=== PATIENT | male | born 1950 | race American Indian/Alaskan Native ===

== ENCOUNTER 2017-12-15 17:17 | Inpatient (IN) | payer MEDICARE ==
[2017-12-15 17:52] LABS: Calcium 9.9 mg/dL (8.4-10.2); Hematocrit 50.3 % (35.5-45.6); Mean Corpuscular HGB Conc 32 % (32-34); Mean Corpuscular Hemoglobin 29 pg (28-32); Mean Corpuscular Volume 91 fl (84-94); Platelet Count 220 K/mm3 (140-440); Red Blood Count 5.51 M/mm3 (3.65-5.03); Red Cell Distribution Width 13.9 % (13.2-15.2)
[2017-12-15] MEDS ORDERED: HumuLIN R IV ONE (18:10)
[2017-12-15] MEDS ORDERED: NACL 0.9% 1000 ML 1,000 ML IV ONE (18:11)
--- NOTE | 2017-12-15 18:15 | Emergency Department Report ---
HPI - General Chief Complaint: Hyperglycemia Time Seen by Provider: 12/15/17 18:03 - HPI HPI: 67-year-old -[place] male, presents to ED with generalized weakness, high blood glucose, history of diabetes and has been without his insulin for the last month due to being unable to fill his prescriptions. He denies any chest pain, feels mild shortness of breath, no fever, no chills, complains of increase in thirst, and polyurea. ED Past Medical Hx - Past Medical History Hx Hypertension: Yes (PCP IS DR EMIL NAIK) Hx Diabetes: Yes (IDDM 2011) Hx GERD: Yes Hx Renal Disease: Yes (nephrolithiasis) Hx Sickle Cell Disease: No (SICKLE TRAIT) Hx Arthritis: Yes (KNEES AND FINGERS) Hx Kidney Stones: Yes Additional medical history: ulcerative colitis, - Surgical History Hx Cholecystectomy: Yes - Social History Smoking Status: Never Smoker Substance Use Type: None - Medications Home Medications: Home Medications Medication Instructions Recorded Confirmed Last Taken Type Fenofibrate [Lofibra] 160 mg PO QDAY 01/13/14 10/16/14 10/16/14 07:00 History Ferrous Sulfate [Feosol 325 MG tab] 325 mg PO BID 01/13/14 10/16/14 10/16/14 History 0700 Mesalamine [Asacol Hd] 800 mg PO BID 01/13/14 10/16/14 10/16/14 07:00 History Multivitamin [Multi Vitamin Daily] 1 each PO DAILY 07/01/14 10/16/14 07/02/14 13 :00 History Sulfamethoxazole/Trimethoprim 1 each PO BID #14 tablet 07/15/14 10/16/14 Rx [Bactrim Ds] Tamsulosin [Flomax] 0.4 mg PO QHS #90 cap 07/15/14 10/16/14 10/14/14 Rx Fish Oil/Borage/Flax/Om3,6,9 1 1 gm PO QID 10/16/14 10/16/14 10/14/14 History [[place] 3-6-9 1,200 mg Softgel] Insulin Lispro [HumaLOG] 20 unit SQ QHS 10/16/14 10/16/14 10/15/14 History Insulin Lispro [HumaLOG] 40 units SUB-Q QAM 10/16/14 10/16/1415 07:00 History ED Review of Systems ROS: Stated complaint: HIGH BLOOD SUGAR Other details as noted in HPI Comment: All other systems reviewed and negative Endocrine: excessive sweating, increased thirst Gastrointestinal: nausea Physical Exam - Physical Exam Vital Signs: Vital Signs 12/15/17 17:30 Temperature 97.8 F Pulse Rate 131 H Respiratory 16 Rate Blood Pressure 133/88 [Right] O2 Sat by Pulse 94 Oximetry Physical Exam: Gen. alert and oriented 3 in no distress Head atraumatic normocephalic Eyes PERR LA EOMI Chest regular rate and rhythm normal S1-S2 lungs clear bilaterally Abdomen soft nondistended Back no point tenderness paravertebral tenderness Neuro no focal deficit. Psych normal mood. ED Course Vital Signs 12/15/17 17:30 Temperature 97.8 F Pulse Rate 131 H Respiratory 16 Rate Blood Pressure 133/88 [Right] O2 Sat by Pulse 94 Oximetry ED Medical Decision Making - Lab Data Result diagrams: 12/15/17 17:27 12/15/17 17:27 Critical care attestation.: If time is entered above; I have spent that time in minutes in the direct care of this critically ill patient, excluding procedure time. ED Disposition Clinical Impression: DKA (diabetic ketoacidoses) Qualifiers: Diabetes mellitus type: type 2 Diabetes mellitus complication detail: without coma Qualified Code(s): E11.10 - Type 2 diabetes mellitus with ketoacidosis without coma Disposition: 09 OP ADMIT IP TO THIS HOSP Is pt being admited?: Yes Does the pt Need Aspirin: No Condition: Stable Instructions: Diabetic Ketoacidosis (ED)
[2017-12-15 19:14] LABS: Basophils % (Manual) 0 % (0.0-1.8); Eosinophils % (Manual) 0 % (0.0-4.3); Total Cells Counted 100
[2017-12-15 19:15] LABS: Large Platelets 1+; Platelet Estimate Consistent w Auto; RBC Morphology Normal
[2017-12-15 19:24] LABS: Bilirubin,Urine NEG (Negative); Blood,Urine SM (Negative); Color,Urine Straw (Yellow); Mucus,Urine FEW /HPF; Protein,Urine <15 mg/dL mg/dL (Negative); Urobilinogen,Urine < 2.0 mg/dL (<2.0)
--- NOTE | 2017-12-15 19:36 | History and Physical Report ---
History of Present Illness Date of examination: 12/15/17 Date of admission: 12/15/17 Chief complaint: CC :Feeling weak and tired 3 days History of present illness: HPI 67-year-old -[place] male with history of IDDM on Novolog mix pens BID changed his insurance one month ago.In the ensuing change his Novalog mix pens were not authorised and only Humalog [id number] were authorised. Because of confusion and non availability of insulin stopped taking his insulin for about 3 weeks --- presents to ED with generalized weakness and high blood glucose. He denies any chest pain, feels mild shortness of breath, no fever, no chills, complains of increase in thirst, and polyuria.Feels very weak and tired.Also severe dry tongue. Past Medical History Hypertension Diabetes GERD Renal Diseas Arthritis Kidney Stones Additional medical history: ulcerative colitis, Surgical History Hx Cholecystectomy: Yes Hemorrhoidectomy - Social History Smoking Status: Smoked 30 years ago Substance Use Type: None Family Hx Htn DM -Medications Home Medications: Home Medications Medication Instructions Recorded Confirmed Last Taken Type Fenofibrate [Lofibra] 160 mg PO QDAY 01/13/14 10/16/14 10/16/14 07:00 History Ferrous Sulfate [Feosol 325 MG tab] 325 mg PO BID 01/13/14 10/16/14 10/16/14 History 0700 Mesalamine [Asacol Hd] 800 mg PO BID 01/13/14 10/16/14 10/16/14 07:00 History Multivitamin [Multi Vitamin Daily] 1 each PO DAILY 07/01/14 10/16/14 07/02/14 13 :00 History Sulfamethoxazole/Trimethoprim 1 each PO BID #14 tablet 07/15/14 10/16/14 Rx [Bactrim Ds] Tamsulosin [Flomax] 0.4 mg PO QHS #90 cap 07/15/14 10/16/14 10/14/14 Rx Fish Oil/Borage/Flax/Om3,6,9 1 1 gm PO QID 10/16/14 10/16/14 10/14/14 History [[place] 3-6-9 1,200 mg Softgel] Insulin Lispro [HumaLOG] 20 unit SQ QHS 10/16/14 10/16/14 10/15/14 History Insulin Lispro [HumaLOG] 40 units SUB-Q QAM 10/16/14 10/16/14 10/16/14 07:00 History Medications and Allergies Allergies Allergy/AdvReac Type Severity Reaction Status Date / Time No Known Allergies Allergy Verified 10/16/14 12:48 Home Medications Medication Instructions Recorded Confirmed Last Taken Type Fenofibrate [Lofibra] 160 mg PO QDAY 01/13/14 12/15/17 10/16/14 07:00 History Chromium Picolinate 400 mcg PO BID 12/15/17 12/15/17 Unknown History Insulin Lispro Prot/Lispro 25 unit SQ QPM 12/15/17 12/15/17 Unknown History [HumaLOG MIX 75/25] Insulin Lispro Prot/Lispro 55 unit SQ QAM 12/15/17 12/15/17 Unknown History [HumaLOG MIX 75/25] Omeprazole 20 mg PO DAILY 12/15/17 12/15/17 Unknown History Review of Systems All systems: negative Constitutional: no weight loss, no weight gain, no fever, no chills, no sweats, no night sweats Ears, nose, mouth and throat: no sore throat, no swelling in mouth, no swelling in throat, no odynophagia Cardiovascular: no chest pain, no orthopnea, no palpitations, no rapid/ irregular heart beat, no edema Respiratory: shortness of breath, no cough, no cough with sputum, no excessive sputum, no hemoptysis, no dyspnea on exertion Gastrointestinal: nausea, no vomiting, no diarrhea, no constipation, no change in bowel habits, no hematemesis, no coffee ground emesis Genitourinary Male: no dysuria, no hematuria, no flank pain, no discharge, no urinary frequency, no urinary hesitancy Rectal: no pain Musculoskeletal: no neck stiffness, no neck pain, no shooting arm pain, no arm numbness/tingling, no low back pain, no shooting leg pain Integumentary: no rash, no pruritis, no redness, no sores Neurological: no seizures, no syncope Psychiatric: no anxiety, no memory loss, no change in sleep habits, no sleep disturbances, no insomnia Endocrine: polyphagia, excessive thirst, polydipsia, polyuria, no cold intolerance, no heat intolerance Hematologic/Lymphatic: no easy bruising, no easy bleeding Allergic/Immunologic: no urticaria, no allergic rhinitis, no wheezing Exam - Constitutional Vitals: Temp Pulse Resp BP Pulse Ox 97.8 F 118 H 29 H 161/104 98 12/15/17 17:30 12/15/17 19:00 12/15/17 19:00 12/15/17 19:00 12/15/17 19:00 General appearance: Present: no acute distress, well-nourished - EENT Eyes: Present: PERRL ENT: hearing intact, other (Dry Tongue) - Neck Neck: Present: supple, normal ROM - Respiratory Respiratory effort: normal Respiratory: bilateral: CTA - Cardiovascular Heart rate: 76 Rhythm: regular Heart Sounds: Present: S1 & S2. Absent: rub, click - Extremities Extremities: no ischemia, pulses intact, pulses symmetrical, No edema Peripheral Pulses: within normal limits - Abdominal General gastrointestinal: Present: soft, non-tender, non-distended, normal bowel sounds Male genitourinary: Present: normal - Rectal Rectal Exam: deferred - Integumentary Integumentary: Present: clear, warm, dry - Musculoskeletal Musculoskeletal: gait normal, strength equal bilaterally - Psychiatric Psychiatric: appropriate mood/affect, intact judgment & insight - Neurologic Neurologic: CNII-XII intact, moves all extremities - Allied Health Allied health notes reviewed: nursing, case management Results - Labs CBC & Chem 7: 12/16/17 04:29 12/16/17 04:29 Labs: Laboratory Last Values WBC 24.9 K/mm3 (4.5-11.0) H 12/15/17 17:27 RBC 5.51 M/mm3 (3.65-5.03) H 12/15/17 17:27 Hgb 16.0 gm/dl (11.8-15.2) H 12/15/17 17:27 Hct 50.3 % (35.5-45.6) H 12/15/17 17:27 MCV 91 fl (84-94) 12/15/17 17:27 MCH 29 pg (28-32) 12/15/17 17:27 MCHC 32 % (32-34) 12/15/17 17:27 RDW 13.9 % (13.2-15.2) 12/15/17 17:27 Plt Count 220 K/mm3 (140-440) 12/15/17 17:27 Add Manual Diff Complete 12/15/17 17: Total Counted 100 12/15/17 17:27 Seg Neuts % (Manual) 85.0 % (40.0-70.0) H 12/15/17 17:27 Band Neutrophils % 4.0 % 12/15/17 17:27 Lymphocytes % (Manual) 5.0 % (13.4-35.0) L 12/15/17 17:27 Reactive Lymphs % (Man) 0 % 12/15/17 17:27 Monocytes % (Manual) 6.0 % (0.0-7.3) 12/15/17 17:27 Eosinophils % (Manual) 0 % (0.0-4.3) 12/15/17 17:27 Basophils % (Manual) 0 % (0.0-1.8) 12/15/17 17:27 Metamyelocytes % 0 % 12/15/17 17:27 Myelocytes % 0 % 12/15/17 17:27 Promyelocytes % 0 % 12/15/17 17:27 Blast Cells % 0 % 12/15/17 17:27 Nucleated RBC % Not Reportable 12/15/17 17:27 Seg Neutrophils # Man 21.2 K/mm3 (1.8-7.7) H 12/15/17 17:27 Band Neutrophils # 1.0 K/mm3 12/15/17 17:27 Lymphocytes # (Manual) 1.2 K/mm3 (1.2-5.4) 12/15/17 17:27 Abs React Lymphs (Man) 0.0 K/mm3 12/15/17 17:27 Monocytes # (Manual) 1.5 K/mm3 (0.0-0.8) H 12/15/17 17:27 Eosinophils # (Manual) 0.0 K/mm3 (0.0-0.4) 12/15/17 17:27 Basophils # (Manual) 0.0 K/mm3 (0.0-0.1) 12/15/17 17:27 Metamyelocytes # 0.0 K/mm3 12/15/17 17:27 Myelocytes # 0.0 K/mm3 12/15/17 17:27 Promyelocytes # 0.0 K/mm3 12/15/17 17:27 Blast Cells # 0.0 K/mm3 12/15/17 17:27 WBC Morphology Not Reportable 12/15/17 17:27 Hypersegmented Neuts Not Reportable 12/15/17 17:27 Hyposegmented Neuts Not Reportable 12/15/17 17:27 Hypogranular Neuts Not Reportable 12/15/17 17:27 Smudge Cells Not Reportable 12/15/17 17:27 Toxic Granulation Not Reportable 12/15/17 17:27 Toxic Vacuolation Not Reportable 12/15/17 17:27 Dohle Bodies Not Reportable 12/15/17 17:27 Pelger-Huet Anomaly Not Reportable 12/15/17 17:27 Eliezer Rods Not Reportable 12/15/17 17:27 Platelet Estimate Consistent w auto 12/15/17 17:27 Clumped Platelets Not Reportable 12/15/17 17:27 Plt Clumps, EDTA Not Reportable 12/15/17 17:27 Large Platelets 1+ 12/15/17 17:27 Giant Platelets Not Reportable 12/15/17 17:27 Platelet Satelliting Not Reportable 12/15/17 17:27 Plt Morphology Comment Not Reportable 12/15/17 17:27 RBC Morphology Normal 12/15/17 17:27 Dimorphic RBCs Not Reportable 12/15/17 17:27 Polychromasia Not Reportable 12/15/17 17:27 Hypochromasia Not Reportable 12/15/17 17:27 Poikilocytosis Not Reportable 12/15/17 17:27 Anisocytosis Not Reportable 12/15/17 17:27 Microcytosis Not Reportable 12/15/17 17:27 Macrocytosis Not Reportable 12/15/17 17:27 Spherocytes Not Reportable 12/15/17 17:27 Pappenheimer Bodies Not Reportable 12/15/17 17:27 Sickle Cells Not Reportable 12/15/17 17:27 Target Cells Not Reportable 12/15/17 17:27 Tear Drop Cells Not Reportable 12/15/17 17:27 Ovalocytes Not Reportable 12/15/17 17:27 Helmet Cells Not Reportable 12/15/17 17:27 [place] Bodies Not Reportable 12/15/17 17:27 [place] Rings Not Reportable 12/15/17 17:27 [place] Cells Not Reportable 12/15/17 17:27 Bite Cells Not Reportable 12/15/17 17:27 Crenated Cell Not Reportable 12/15/17 17:27 Elliptocytes Not Reportable 12/15/17 17:27 Acanthocytes (Spur) Not Reportable 12/15/17 17:27 Rouleaux Not Reportable 12/15/17 17:27 Hemoglobin C Crystals Not Reportable 12/15/17 17:27 Schistocytes Not Reportable 12/15/17 17:27 Malaria parasites Not Reportable 12/15/17 17:27 Josias Bodies Not Reportable 12/15/17 17:27 Hem Pathologist Commnt No 12/15/17 17:27 VBG pH 7.206 (7.320-7.420) L 12/15/17 17:27 Sodium 126 mmol/L (137-145) L 12/15/17 17:27 Potassium 5.5 mmol/L (3.6-5.0) H 12/15/17 17:27 Chloride 78.2 mmol/L (98-107) L 12/15/17 17:27 Carbon Dioxide 10 mmol/L (22-30) L 12/15/17 17:27 Anion Gap 43 mmol/L 12/15/17 17:27 BUN 39 mg/dL (9-20) H 12/15/17 17:27 Creatinine 2.2 mg/dL (0.8-1.5) H 12/15/17 17:27 Estimated GFR 37 ml/min 12/15/17 17:27 BUN/Creatinine Ratio 18 % 12/15/17 17:27 Glucose 840 mg/dL (75-100) H* 12/15/17 17:27 POC Glucose > 500 (70-105) H 12/15/17 18:16 Calcium 9.9 mg/dL (8.4-10.2) 12/15/17 17:27 Urine Color Straw (Yellow) 12/15/17 18:57 Urine Turbidity Clear (Clear) 12/15/17 18:57 Urine pH 5.0 (5.0-7.0) 12/15/17 18:57 Ur Specific [place] 1.018 (1.003-1.030) 12/15/17 18:57 Urine Protein <15 mg/dl mg/dL (Negative) 12/15/17 18:57 Urine Glucose (UA) >=500 mg/dL (Negative) 12/15/17 18:57 Urine Ketones 20 mg/dL (Negative) 12/15/17 18:57 Urine Blood Sm (Negative) 12/15/17 18:57 Urine Nitrite Neg (Negative) 12/15/17 18:57 Urine Bilirubin Neg (Negative) 12/15/17 18:57 Urine Urobilinogen < 2.0 mg/dL (<2.0) 12/15/17 18:57 Ur Leukocyte Esterase Neg (Negative) 12/15/17 18:57 Urine WBC (Auto) 2.0 /HPF (0.0-6.0) 12/15/17 18:57 Urine RBC (Auto) 1.0 /HPF (0.0-6.0) 12/15/17 18:57 Urine Mucus Few /HPF 12/15/17 18:57 Short CBC 12/15/17 12/16/17 Range/Units 17:27 04:29 WBC 24.9 H 25.5 H (4.5-11.0) K/mm3 Hgb 16.0 H 15.1 (11.8-15.2) gm/dl Hct 50.3 H 45.7 H (35.5-45.6) % Plt Count 220 201 (140-440) K/mm3 BMP 12/15/17 12/15/17 12/15/17 17:27 19:22 20:11 Sodium 126 L 134 L D Potassium 5.5 H 4.8 Chloride 78.2 L 88.4 L Carbon Dioxide 10 L 11 L BUN 39 H 36 H Creatinine 2.2 H 2.1 H Glucose 840 H* 818 H* 578 H* Calcium 9.9 9.5 12/16/17 12/16/17 12/16/17 00:16 01:46 04:29 Sodium 135 L 139 145 Potassium 6.4 H* D 5.0 D 4.4 Chloride 90.8 L 98.1 103.7 Carbon Dioxide 8 L* 12 L 17 L BUN 34 H 32 H 29 H Creatinine 1.8 H 1.6 H 1.6 H Glucose 499 H 355 H 219 H Calcium 9.2 9.4 9.3 Liver Function 12/16/17 Range/Units 04:29 Total Bilirubin 0.70 (0.1-1.2) mg/dL AST 14 (5-40) units/L ALT 17 (7-56) units/L Alkaline Phosphatase 110 (35-129) units/L Albumin 4.0 (3.9-5) g/dL Urine 12/15/17 Range/Units 18:57 Urine Color Straw (Yellow) Urine pH 5.0 (5.0-7.0) Ur Specific [place] 1.018 (1.003-1.030) Urine Protein <15 mg/dl (Negative) mg/dL Urine Glucose (UA) >=500 (Negative) mg/dL - Imaging and Cardiology EKG: report reviewed (NSR ) Assessment and Plan Assessment and plan: The high probability of a clinically significant, sudden or life threatening deterioration of the [Pulmonary, cadiac, renal] system(s) required my full and direct attention, intervention and personal management. The aggregate critical care time was [35] minutes. This time is in addition to time spent performing reported procedures but includes the following: [x] Data Review and interpretation [x] Patient assessment and monitoring of vital signs [x] Documentation [x] Medication orders and management Advance Directives: Yes (Full code) VTE prophylaxis?: Chemical Plan of care discussed with patient/family: Yes - Patient Problems (1) DKA (diabetic ketoacidoses) Current Visit: Yes Status: Acute Qualifiers: Diabetes mellitus type: type 2 Diabetes mellitus complication detail: without coma Qualified Code(s): E11.10 - Type 2 diabetes mellitus with ketoacidosis without coma Plan to address problem: DKA protocol for now .IV fluids IV insulin and Monitor electrolytes every 1 to 2 hours.Low sodium and High K level should correct with correction of Glucose levels. Counselled about taking Insulin regularly.Patient to be discharged on Humalog 70 /30 pens after confirming with pharmacy.Not Humalog 75/25.(If approved to be discharged on 75/25 Humalog) (2) SIRS (systemic inflammatory response syndrome) Current Visit: Yes Status: Acute Plan to address problem: Symptom complex c/w SIRS Treat DKA (3) Hyperkalemia, transcellular shifts Current Visit: No Status: Acute Plan to address problem: Should correct with IV fluids and IV Insulin (4) Hyponatremia with extracellular fluid depletion Current Visit: No Status: Acute Plan to address problem: Should correct with IV insulin and IV fluids (5) HTN (hypertension) Current Visit: Yes Status: Chronic Qualifiers: Hypertension type: essential hypertension Qualified Code(s): I10 - Essential (primary) hypertension Plan to address problem: Initiated on Losartan 50 mg po qd (6) HLD (hyperlipidemia) Current Visit: Yes Status: Chronic Qualifiers: Hyperlipidemia type: mixed hyperlipidemia Qualified Code(s): E78.2 - Mixed hyperlipidemia Plan to address problem: Cont Fenofibrate and statins (7) GERD (gastroesophageal reflux disease) Current Visit: Yes Status: Chronic Qualifiers: Esophagitis presence: without esophagitis Qualified Code(s): K21.9 - Gastro -esophageal reflux disease without esophagitis Plan to address problem: Cont PPI's (8) Colitis Current Visit: No Status: Chronic Plan to address problem: Cont Asacol (9) Leukocytosis Current Visit: Yes Status: Acute Qualifiers: Leukocytosis type: unspecified Qualified Code(s): D72.829 - Elevated white blood cell count, unspecified Plan to address problem: Probably demargination Empiric IV Levaquin (10) BPH (benign prostatic hyperplasia) Current Visit: Yes Status: Chronic Qualifiers: Lower urinary tract symptom presence: symptoms present Plan to address problem: Cont Flomax 0.4 mg po qd (11) DVT prophylaxis Current Visit: Yes Status: Acute Plan to address problem: On Heparin/Levaquin GI prophylaxis on PPI's
[2017-12-15] MEDS ORDERED: NON-FORMULARY (Fenofibrate [Lofibra] 160 MG) PO SCH (19:45)
[2017-12-15] MEDS ORDERED: SODIUM CHLORIDE FLUSH SYRINGE 10 ML IV PRN (19:49)
[2017-12-15] MEDS ORDERED: MILK OF MAGNESIA PO PRN (19:49)
[2017-12-15] MEDS ORDERED: PERCOCET 5/325 PO PRN (19:49)
[2017-12-15] MEDS ORDERED: D50W (25GM) Syringe IV PRN ×3 (19:49)
[2017-12-15] MEDS ORDERED: MORPHINE IV PRN ×2 (19:49→20:15)
[2017-12-15] MEDS ORDERED: SODIUM CHLORIDE FLUSH SYRINGE 10 ML IV NR (20:00)
[2017-12-15] MEDS ORDERED: D5W/0.45% NACL/KCL 20 MEQ 20 MEQ/1,000 ML BAG IV SCH (20:00)
[2017-12-15] MEDS ORDERED: KCL 10MEQ/100ML 10 MEQ/100 ML BAG IV SCH ×2 (20:00)
[2017-12-15 20:37] LABS: Calcium 9.5 mg/dL (8.4-10.2)
[2017-12-15 20:45] LABS: Chol/HDL Ratio 3.97 %
[2017-12-15] MEDS ORDERED: NACL 0.9% 1000 ML 2,000 ML IV ONE (22:22)
[2017-12-15] MEDS: SODIUM CHLORIDE FLUSH SYRINGE 10 ML IV SCH (22:27)
[2017-12-15] MEDS ORDERED: HEPARIN ONE (22:30)
[2017-12-15] MEDS: HEPARIN SUB-Q SCH (22:36)
[2017-12-15] MEDS ORDERED: NACL 0.9% 1000 ML 1,000 ML IV SCH (23:00)
[2017-12-15] MEDS: HumuLIN R 100 UNITS in NACL 0.9% 99 ML IV SCH (23:39)
[2017-12-16 01:28] LABS: Calcium 9.2 mg/dL (8.4-10.2)
[2017-12-16 02:53] LABS: Calcium 9.4 mg/dL (8.4-10.2)
[2017-12-16 05:10] LABS: Hematocrit 45.7 % (35.5-45.6); Hemoglobin 15.1 gm/dl (11.8-15.2); Mean Corpuscular HGB Conc 33 % (32-34); Mean Corpuscular Hemoglobin 29 pg (28-32); Mean Corpuscular Volume 87 fl (84-94); Platelet Count 201 K/mm3 (140-440); Red Blood Count 5.26 M/mm3 (3.65-5.03)
[2017-12-16] MEDS: D5/0.45NS 1,000 ML IV SCH ×3 (05:15→19:56)
[2017-12-16 05:21] LABS: Calcium 9.3 mg/dL (8.4-10.2)
[2017-12-16 05:53] LABS: Basophils % (Manual) 0 % (0.0-1.8); Eosinophils % (Manual) 0 % (0.0-4.3); Total Cells Counted 100
[2017-12-16] MEDS ORDERED: LEVAQUIN 750MG/150ML 750 MG/150 ML BAG IV SCH (05:53)
[2017-12-16 05:54] LABS: Anisocytosis 1+; Platelet Estimate Consistent w Auto
[2017-12-16 06:57] LABS: Creatinine,Urine 78.9 mg/dL (0.1-20.0); Microalbumin/Creatinine Ratio 120.4 ug/mg
--- NOTE | 2017-12-16 09:45 | Progress Note ---
Assessment and Plan Assessment and plan: 67-year-old -[place] male with history of IDDM on Novolog mix pens BID changed his insurance one month ago.In the ensuing change his Novalog mix pens were not authorised and only Humalog 70/30 were authorised. Because of confusion and non availability of insulin stopped taking his insulin for about 3 weeks As possible as the room patient has been having intermittent nausea vomiting unable to keep any food down for a few days. Recurrent DKA BRIGHT Encephalopathy improving Colitis SIRS secondary to DKA Hyperkalemia Hypertension Acute Gastroenteritis-Improve Metabolic Acidosis BPH Leukocytosis possibly reactive Plan Discussed with nursing staff and patient and family member patient promises to be complaint with blood sugar going forward Continue losartan as initiated Continue PPI Continue insulin drip and transitioned to long-acting insulin once anion gap has closed We will resume 70/30 daily Humalog mix this is what is approved and months of a 5 Discontinue restraints, patient awake alert and oriented Dc plaza catheter The high probability of a clinically significant, sudden or life threatening deterioration of the [endocrine] system(s) required my full and direct attention , intervention and personal management. The aggregate critical care time was [ 35 minutes] minutes. This time is in addition to time spent performing reported procedures but includes the following: [X] Data Review and interpretation [X] Patient assessment and monitoring of vital signs [X] Documentation [X] Medication orders and management History Interval history: Patient seen and examined this morning in no acute distress. Reports generalized weakness. Reports hungry and wants to be taken off restraints Hospitalist Physical - Physical exam Narrative exam: VITAL SIGNS: Reviewed. GENERAL: The patient appeared well nourished and normally developed. Vital signs as documented. HEAD: No signs of head trauma. EYES: Pupils are equal. Extraocular motions intact. EARS: Hearing grossly intact. MOUTH: Oropharynx is normal. NECK: No adenopathy, no JVD. CHEST: Chest with clear breath sounds bilaterally. No wheezes, rales, or rhonchi. CARDIAC: Regular rate and rhythm. S1 and S2, without murmurs, gallops, or rubs. VASCULAR: No Edema. Peripheral pulses normal and equal in all extremities. ABDOMEN: Soft, without detectable tenderness. No sign of distention. No rebound or guarding, and no masses palpated. Bowel Sounds normal. MUSCULOSKELETAL: Good range of motion of all major joints. Extremities without clubbing, cyanosis or edema. NEUROLOGIC EXAM: Alert and oriented x 3. No focal sensory or strength deficits. Speech normal. Follows commands. PSYCHIATRIC: Mood normal. SKIN: No rash or lesions. - Constitutional Vitals: Temp Pulse Resp BP Pulse Ox 97.7 F 106 H 18 136/97 95 12/16/17 04:00 12/16/17 08:00 12/16/17 08:00 12/16/17 08:00 12/16/17 08:00 General appearance: Present: no acute distress, well-nourished Results - Labs CBC & Chem 7: 12/16/17 04:29 12/16/17 17:30 Labs: Laboratory Last Values WBC 25.5 K/mm3 (4.5-11.0) H 12/16/17 04:29 RBC 5.26 M/mm3 (3.65-5.03) H 12/16/17 04:29 Hgb 15.1 gm/dl (11.8-15.2) 12/16/17 04:29 Hct 45.7 % (35.5-45.6) H 12/16/17 04:29 MCV 87 fl (84-94) 12/16/17 04:29 MCH 29 pg (28-32) 12/16/17 04:29 MCHC 33 % (32-34) 12/16/17 04:29 RDW 14.0 % (13.2-15.2) 12/16/17 04:29 Plt Count 201 K/mm3 (140-440) 12/16/17 04:29 Lymph % (Auto) [employer] Appraiser 12/16/17 04:29 Louisa % (Auto) Automobile Damage [employer] Appraiser 12/16/17 04:29 Eos % (Auto) Automobile Damage [employer] Appraiser 12/16/17 04:29 Baso % (Auto) Automobile Damage [employer] Appraiser 12/16/17 04:29 Lymph # Automobile Damage [employer] Appraiser 12/16/17 04:29 Louisa # Automobile Damage Field Appraiser 12/16/17 04:29 Eos # Automobile Damage Field Appraiser 12/16/17 04:29 Baso # Automobile Damage Field Appraiser 12/16/17 04:29 Add Manual Diff Complete 12/16/17 04:29 Total Counted 100 12/16/17 04:29 Seg Neutrophils % Automobile Damage [employer] Appraiser 12/16/17 04:29 Seg Neuts % (Manual) 70.0 % (40.0-70.0) 12/16/17 04:29 Band Neutrophils % 4.0 % 12/16/17 04:29 Lymphocytes % (Manual) 15.0 % (13.4-35.0) 12/16/17 04:29 Reactive Lymphs % (Man) 0 % 12/16/17 04:29 Monocytes % (Manual) 11.0 % (0.0-7.3) H 12/16/17 04:29 Eosinophils % (Manual) 0 % (0.0-4.3) 12/16/17 04:29 Basophils % (Manual) 0 % (0.0-1.8) 12/16/17 04:29 Metamyelocytes % 0 % 12/16/17 04:29 Myelocytes % 0 % 12/16/17 04:29 Promyelocytes % 0 % 12/16/17 04:29 Blast Cells % 0 % 12/16/17 04:29 Nucleated RBC % Not Reportable 12/16/17 04:29 Seg Neutrophils # Automobile Damage [employer] Appraiser 12/16/17 04:29 Seg Neutrophils # Man 17.9 K/mm3 (1.8-7.7) H 12/16/17 04:29 Band Neutrophils # 1.0 K/mm3 12/16/17 04:29 Lymphocytes # (Manual) 3.8 K/mm3 (1.2-5.4) 12/16/17 04:29 Abs React Lymphs (Man) 0.0 K/mm3 12/16/17 04:29 Monocytes # (Manual) 2.8 K/mm3 (0.0-0.8) H 12/16/17 04:29 Eosinophils # (Manual) 0.0 K/mm3 (0.0-0.4) 12/16/17 04:29 Basophils # (Manual) 0.0 K/mm3 (0.0-0.1) 12/16/17 04:29 Metamyelocytes # 0.0 K/mm3 12/16/17 04:29 Myelocytes # 0.0 K/mm3 12/16/17 04:29 Promyelocytes # 0.0 K/mm3 12/16/17 04:29 Blast Cells # 0.0 K/mm3 12/16/17 04:29 WBC Morphology Not Reportable 12/16/17 04:29 Hypersegmented Neuts Not Reportable 12/16/17 04:29 Hyposegmented Neuts Not Reportable 12/16/17 04:29 Hypogranular Neuts Not Reportable 12/16/17 04:29 Smudge Cells Not Reportable 12/16/17 04:29 Toxic Granulation Not Reportable 12/16/17 04:29 Toxic Vacuolation Not Reportable 12/16/17 04:29 Dohle Bodies Not Reportable 12/16/17 04:29 Pelger-Huet Anomaly Not Reportable 12/16/17 04:29 Eliezer Rods Not Reportable 12/16/17 04:29 Platelet Estimate Consistent w auto 12/16/17 04:29 Clumped Platelets Not Reportable 12/16/17 04:29 Plt Clumps, EDTA Not Reportable 12/16/17 04:29 Large Platelets Not Reportable 12/16/17 04:29 Giant Platelets Not Reportable 12/16/17 04:29 Platelet Satelliting Not Reportable 12/16/17 04:29 Plt Morphology Comment Not Reportable 12/16/17 04:29 RBC Morphology Not Reportable 12/16/17 04:29 Dimorphic RBCs Not Reportable 12/16/17 04:29 Polychromasia Not Reportable 12/16/17 04:29 Hypochromasia Not Reportable 12/16/17 04:29 Poikilocytosis Not Reportable 12/16/17 04:29 Anisocytosis 1+ 12/16/17 04:29 Microcytosis Not Reportable 12/16/17 04:29 Macrocytosis Not Reportable 12/16/17 04:29 Spherocytes Not Reportable 12/16/17 04:29 Pappenheimer Bodies Not Reportable 12/16/17 04:29 Sickle Cells Not Reportable 12/16/17 04:29 Target Cells Not Reportable 12/16/17 04:29 Tear Drop Cells Not Reportable 12/16/17 04:29 Ovalocytes Not Reportable 12/16/17 04:29 Helmet Cells Not Reportable 12/16/17 04:29 [place] Bodies Not Reportable 12/16/17 04:29 [place] Rings Not Reportable 12/16/17 04:29 Sebas Cells Not Reportable 12/16/17 04:29 Bite Cells Not Reportable 12/16/17 04:29 Crenated Cell Not Reportable 12/16/17 04:29 Elliptocytes Not Reportable 12/16/17 04:29 Acanthocytes (Spur) Not Reportable 12/16/17 04:29 Rouleaux Not Reportable 12/16/17 04:29 Hemoglobin C Crystals Not Reportable 12/16/17 04:29 Schistocytes Not Reportable 12/16/17 04:29 Malaria parasites Not Reportable 12/16/17 04:29 Josias Bodies Not Reportable 12/16/17 04:29 Hem Pathologist Commnt No 12/16/17 04:29 VBG pH 7.206 (7.320-7.420) L 12/15/17 17:27 Sodium 145 mmol/L (137-145) 12/16/17 04:29 Potassium 4.4 mmol/L (3.6-5.0) 12/16/17 04:29 Chloride 103.7 mmol/L (98-107) 12/16/17 04:29 Carbon Dioxide 17 mmol/L (22-30) L 12/16/17 04:29 Anion Gap 29 mmol/L 12/16/17 04:29 BUN 29 mg/dL (9-20) H 12/16/17 04:29 Creatinine 1.6 mg/dL (0.8-1.5) H 12/16/17 04:29 Estimated GFR 53 ml/min 12/16/17 04:29 BUN/Creatinine Ratio 18 % 12/16/17 04:29 Glucose 219 mg/dL (75-100) H 12/16/17 04:29 POC Glucose 224 (70-105) H 12/16/17 08:38 Hemoglobin A1c 10.6 % (4-6) H 12/15/17 17:27 Calcium 9.3 mg/dL (8.4-10.2) 12/16/17 04:29 Phosphorus 4.00 mg/dL (2.5-4.5) D 12/15/17 20:11 Magnesium 2.50 mg/dL (1.7-2.3) H 12/15/17 20:11 Total Bilirubin 0.70 mg/dL (0.1-1.2) 12/16/17 04:29 AST 14 units/L (5-40) 12/16/17 04:29 ALT 17 units/L (7-56) 12/16/17 04:29 Alkaline Phosphatase 110 units/L (35-129) 12/16/17 04:29 Total Protein 7.6 g/dL (6.3-8.2) 12/16/17 04:29 Albumin 4.0 g/dL (3.9-5) 12/16/17 04:29 Albumin/Globulin Ratio 1.1 % 12/16/17 04:29 Triglycerides 230 mg/dL (2-149) H 12/15/17 17:27 Cholesterol 139 mg/dL (50-199) 12/15/17 17:27 LDL Cholesterol Direct 58 mg/dL (50-130) 12/15/17 17:27 HDL Cholesterol 35 mg/dL (40-59) L 12/15/17 17:27 Cholesterol/HDL Ratio 3.97 % 12/15/17 17:27 Urine Color Straw (Yellow) 12/15/17 18:57 Urine Turbidity Clear (Clear) 12/15/17 18:57 Urine pH 5.0 (5.0-7.0) 12/15/17 18:57 Ur Specific [place] 1.018 (1.003-1.030) 12/15/17 18:57 Urine Protein <15 mg/dl mg/dL (Negative) 12/15/17 18:57 Urine Glucose (UA) >=500 mg/dL (Negative) 12/15/17 18:57 Urine Ketones 20 mg/dL (Negative) 12/15/17 18:57 Urine Blood Sm (Negative) 12/15/17 18:57 Urine Nitrite Neg (Negative) 12/15/17 18:57 Urine Bilirubin Neg (Negative) 12/15/17 18:57 Urine Urobilinogen < 2.0 mg/dL (<2.0) 12/15/17 18:57 Ur Leukocyte Esterase Neg (Negative) 12/15/17 18:57 Urine WBC (Auto) 2.0 /HPF (0.0-6.0) 12/15/17 18:57 Urine RBC (Auto) 1.0 /HPF (0.0-6.0) 12/15/17 18:57 Urine Mucus Few /HPF 12/15/17 18:57 Urine Creatinine 78.9 mg/dL (0.1-20.0) H 12/16/17 05:30 Urine Microalbumin 9.5 mg/dL (0.1-34.0) 12/16/17 05:30 Microalb/Creat Ratio 120.4 ug/mg 12/16/17 05:30
[2017-12-16] MEDS: COZAAR PO SCH (10:12)
[2017-12-16] MEDS: TRICOR PO SCH (10:12)
[2017-12-16] MEDS: HEPARIN SUB-Q SCH ×2 (10:13→23:23)
[2017-12-16] MEDS: SODIUM CHLORIDE FLUSH SYRINGE 10 ML IV SCH ×2 (10:13→23:25)
[2017-12-16] MEDS ORDERED: NACL 0.9% 1000 ML 1,000 ML IV ONE (11:00)
[2017-12-16] MEDS: FLOMAX PO SCH (11:23)
[2017-12-16] MEDS ORDERED: NACL 0.9% 250ML 250 ML ONE (11:38)
--- NOTE | 2017-12-16 11:53 | Consultation ---
History of Present Illness Consult date: 12/16/17 Requesting physician: THADDEUS POPE Reason for consult: other (DKA) History of present illness: PULMONARY/CCM CONSULT NOTE (Full dictation # [id number]) Please see dictated notes for full details Medications and Allergies Allergies Allergy/AdvReac Type Severity Reaction Status Date / Time No Known Allergies Allergy Verified 10/16/14 12:48 Home Medications Medication Instructions Recorded Confirmed Last Taken Type Fenofibrate [Lofibra] 160 mg PO QDAY 01/13/14 12/15/17 10/16/14 07:00 History Chromium Picolinate 400 mcg PO BID 12/15/17 12/15/17 Unknown History Insulin Lispro Prot/Lispro 25 unit SQ QPM 12/15/17 12/15/17 Unknown History [HumaLOG MIX 75/25] Insulin Lispro Prot/Lispro 55 unit SQ QAM 12/15/17 12/15/17 Unknown History [HumaLOG MIX 75/25] Omeprazole 20 mg PO DAILY 12/15/17 12/15/17 Unknown History Active Meds: Active Medications Dextrose (D50w (25gm) Syringe) 50 ml IV PRN PRN PRN Reason: Hypoglycemia Dextrose (D50w (25gm) Syringe) 0 ml IV ONCE PRN PRN Reason: Hypoglycemia Fenofibrate (Tricor) 145 mg PO DAILY EMILY Last Admin: 12/16/17 10:12 Dose: 145 mg Heparin Sodium (Porcine) (Heparin) 5,000 unit SUB-Q Q12HR EMILY Last Admin: 12/16/17 10:13 Dose: 5,000 unit Insulin Human Regular 100 (units/ Sodium Chloride) 100 mls @ 1 mls/hr IV TITR EMILY; Protocol Last Titration: 12/16/17 11:35 Dose: 4 units/hr, 4 mls/hr Dextrose/Sodium Chloride (D5/0.45ns) 1,000 mls @ 125 mls/hr IV DIRECT EMILY Last Admin: 12/16/17 05:15 Dose: 125 mls/hr Sodium Chloride (Nacl 0.9% 1000 Ml) 1,000 mls @ 999 mls/hr IV BOLUS ONE Stop: 12/16/17 12:00 Last Admin: 12/16/17 10:18 Dose: 999 mls/hr Influenza Virus Vaccine Quadrival (Fluarix Quad [id number](36 Mos+) 0.5 ml IM .ONCE ONE Stop: 12/17/17 12:01 Losartan Potassium (Cozaar) 50 mg PO QDAY [facility] Last Admin: 12/16/17 10:12 Dose: 50 mg Magnesium Hydroxide (Milk Of Magnesia) 30 ml PO Q4H PRN PRN Reason: Constipation Mesalamine (Delzicol) 800 mg PO TID [facility] Morphine Sulfate (Morphine) 2 mg IV Q4H PRN PRN Reason: Pain, Moderate (4-6) Oxycodone/Acetaminophen (Percocet 5/325) 1 tab PO Q6H PRN PRN Reason: Pain, Moderate (4-6) Sodium Chloride (Sodium Chloride Flush Syringe 10 Ml) 10 ml IV BID [facility] Last Admin: 12/16/17 10:13 Dose: 10 ml Sodium Chloride (Sodium Chloride Flush Syringe 10 Ml) 10 ml IV PRN PRN PRN Reason: LINE FLUSH Tamsulosin HCl (Flomax) 0.4 mg PO QDAY [facility] Last Admin: 12/16/17 11:23 Dose: Not Given Physical Examination Vital signs: Vital Signs Temp Pulse Resp BP Pulse Ox 97.8 F 131 H 16 133/88 94 12/15/17 17:30 12/15/17 17:30 12/15/17 17:30 12/15/17 17:30 12/15/17 17:30 Results - Laboratory Findings CBC and BMP: 12/16/17 04:29 12/16/17 13:13 Abnormal lab findings: Abnormal Labs 12/15/17 12/15/17 12/15/17 17:27 17:27 17:27 WBC 24.9 H RBC 5.51 H Hgb 16.0 H Hct 50.3 H Seg Neuts % (Manual) 85.0 H Lymphocytes % (Manual) 5.0 L Monocytes % (Manual) Seg Neutrophils # Man 21.2 H Monocytes # (Manual) 1.5 H VBG pH 7.206 L Sodium 126 L Potassium 5.5 H Chloride 78.2 L Carbon Dioxide 10 L BUN 39 H Creatinine 2.2 H Glucose 840 H* POC Glucose Hemoglobin A1c Phosphorus Magnesium Triglycerides HDL Cholesterol Urine Creatinine 12/15/17 12/15/17 12/15/17 17:27 17:27 17:27 WBC RBC Hgb Hct Seg Neuts % (Manual) Lymphocytes % (Manual) Monocytes % (Manual) Seg Neutrophils # Man Monocytes # (Manual) VBG pH Sodium Potassium Chloride Carbon Dioxide BUN Creatinine Glucose POC Glucose Hemoglobin A1c 10.6 H Phosphorus 7.60 H Magnesium 2.60 H Triglycerides 230 H HDL Cholesterol 35 L Urine Creatinine 12/15/17 12/15/17 12/15/17 17:30 18:16 19:22 WBC RBC Hgb Hct Seg Neuts % (Manual) Lymphocytes % (Manual) Monocytes % (Manual) Seg Neutrophils # Man Monocytes # (Manual) VBG pH Sodium Potassium Chloride Carbon Dioxide BUN Creatinine Glucose 818 H* POC Glucose 382 H > 500 H Hemoglobin A1c Phosphorus Magnesium Triglycerides HDL Cholesterol Urine Creatinine 12/15/17 12/15/17 12/15/17 20:11 20:11 23:09 WBC RBC Hgb Hct Seg Neuts % (Manual) Lymphocytes % (Manual) Monocytes % (Manual) Seg Neutrophils # Man Monocytes # (Manual) VBG pH Sodium 134 L D Potassium Chloride 88.4 L Carbon Dioxide 11 L BUN 36 H Creatinine 2.1 H Glucose 578 H* POC Glucose > 500 H Hemoglobin A1c Phosphorus Magnesium 2.50 H Triglycerides HDL Cholesterol Urine Creatinine 12/16/17 12/16/17 12/16/17 00:16 00:20 01:46 WBC RBC Hgb Hct Seg Neuts % (Manual) Lymphocytes % (Manual) Monocytes % (Manual) Seg Neutrophils # Man Monocytes # (Manual) VBG pH Sodium 135 L Potassium 6.4 H* D Chloride 90.8 L Carbon Dioxide 8 L* 12 L BUN 34 H 32 H Creatinine 1.8 H 1.6 H Glucose 499 H 355 H POC Glucose 484 H Hemoglobin A1c Phosphorus Magnesium Triglycerides HDL Cholesterol Urine Creatinine 12/16/17 12/16/17 12/16/17 01:56 02:22 04:05 WBC RBC Hgb Hct Seg Neuts % (Manual) Lymphocytes % (Manual) Monocytes % (Manual) Seg Neutrophils # Man Monocytes # (Manual) VBG pH Sodium Potassium Chloride Carbon Dioxide BUN Creatinine Glucose POC Glucose 346 H 372 H 237 H Hemoglobin A1c Phosphorus Magnesium Triglycerides HDL Cholesterol Urine Creatinine 12/16/17 12/16/17 12/16/17 04:29 04:29 05:21 WBC 25.5 H RBC 5.26 H Hgb Hct 45.7 H Seg Neuts % (Manual) Lymphocytes % (Manual) Monocytes % (Manual) 11.0 H Seg Neutrophils # Man 17.9 H Monocytes # (Manual) 2.8 H VBG pH Sodium Potassium Chloride Carbon Dioxide 17 L BUN 29 H Creatinine 1.6 H Glucose 219 H POC Glucose 213 H Hemoglobin A1c Phosphorus Magnesium Triglycerides HDL Cholesterol Urine Creatinine 12/16/17 12/16/17 12/16/17 05:30 05:56 06:54 WBC RBC Hgb Hct Seg Neuts % (Manual) Lymphocytes % (Manual) Monocytes % (Manual) Seg Neutrophils # Man Monocytes # (Manual) VBG pH Sodium Potassium Chloride Carbon Dioxide BUN Creatinine Glucose POC Glucose 238 H 236 H Hemoglobin A1c Phosphorus Magnesium Triglycerides HDL Cholesterol Urine Creatinine 78.9 H 12/16/17 12/16/17 08:38 09:45 WBC RBC Hgb Hct Seg Neuts % (Manual) Lymphocytes % (Manual) Monocytes % (Manual) Seg Neutrophils # Man Monocytes # (Manual) VBG pH Sodium Potassium Chloride Carbon Dioxide BUN Creatinine Glucose POC Glucose 224 H 193 H Hemoglobin A1c Phosphorus Magnesium Triglycerides HDL Cholesterol Urine Creatinine
[2017-12-16] MEDS: PEPCID IV SCH (13:10)
[2017-12-16 13:50] LABS: BUN/Creatinine Ratio 18; Blood Urea Nitrogen 23 mg/dL (9-20); Calcium 8.6 mg/dL (8.4-10.2); Hemolysis Index 26
[2017-12-16 13:52] LABS: Creatine Kinase MB 2.7 ng/mL (0.0-4.0)
--- NOTE | 2017-12-16 14:23 | XRay Report ---
CHEST ONE VIEW INDICATION: Cough. COMPARISON: None similar. FINDINGS: Portable, single, frontal chest radiograph demonstrates normal cardiomediastinal silhouette. Grossly clear lungs, though left lateral costophrenic angle hazy obscuration nonspecific for projectional versus pathologic. Unremarkable bones. Extrinsic EKG leads. CONCLUSION: No definite acute chest process, as described. Followup left lung base on subsequent exams as well. Thank you for the opportunity to participate in this patient's care.
[2017-12-16] MEDS: DELZICOL PO SCH ×2 (15:00→19:56)
[2017-12-16] MEDS: HumuLIN R 100 UNITS in NACL 0.9% 99 ML IV SCH (15:10)
[2017-12-16 20:11] LABS: BUN/Creatinine Ratio 18; Blood Urea Nitrogen 22 mg/dL (9-20); Calcium 8.8 mg/dL (8.4-10.2); Hemolysis Index 67
--- NOTE | 2017-12-16 22:26 | Consultation ---
PULMONARY AND CRITICAL CARE CONSULTATION CONSULTING PHYSICIAN: Francia Infante MD REASON FOR CONSULTATION: Diabetic ketoacidosis. CHIEF COMPLAINT AND HISTORY OF PRESENT ILLNESS: The patient is a 67-year-old -Romanian male with past medical history significant amongst other things for a diagnosis of diabetes as well as hypertension, on insulin at home, who reportedly has not been taking his medication for about a month secondary to changes in his insurance. In the preceding 2-3 days, he noticed increased confusion. When he presented to the Emergency Room, he was complaining of generalized weakness, high sugars reading in the 800 and in the high 400s at home. He denied any chest pains. He denies any cough or expectorations. He complained of some shortness of breath. He denied any new onset leg pain or swelling, either unilaterally or bilaterally. Denied palpitations. Again, denied any chest pains. He did complain of polyuria and polydipsia. He was evaluated, diagnosed with diabetic ketoacidosis, and transferred to the Intensive Care Unit where I stopped by to see him. When I stopped by to see me, he still looked pretty confused. It is unclear if this is an acute or a chronic change. His ultimate answers were appropriate though. He still denied being chest pain free. When asked about a history of tobacco use or abuse whatsoever, he stated that he stopped smoking a long time ago, but would not quantify his smoking history any further. The above is as much of the history of presentation as I have. PAST MEDICAL HISTORY: Hypertension, diabetes, gastroesophageal reflux disease, history of chronic kidney disease, history of nephrolithiasis, history of arthritis, and history of ulcerative colitis. PAST SURGICAL HISTORY: He has had hemorrhoidectomies done in the past. MEDICATIONS: He was on at the time I stopped by to see him were reviewed, pertinent medications included: He was on Tricor that was about to start. He was on heparin 5000 units subcutaneous q.12h. He had received influenza vaccine. He was on insulin drip, I believe at 4 units per hour. P.r.n. morphine was ordered as well as p.r.n. Percocet. ALLERGIES: No known drug allergies. DIET: Thin gentleman. Denies significant weight loss or gain in the preceding few weeks to months. FAMILY AND SOCIAL HISTORY: Lives in the community. There is a family history of hypertension and diabetes. He has a remote tobacco smoking history, unable to quantify. Denies current alcohol, tobacco, or illicit drug use or abuse. REVIEW OF SYSTEMS: No loss of consciousness. No new onset seizures. No new onset focal weakness. He has the new onset confusion, it looks like. No gross hematochezia or melena. No gross hematuria. He had polydipsia and polyuria. Complete 13-system review of systems obtained. Pertinent positives and/or negatives as in body of history above, otherwise they are noncontributory. PHYSICAL EXAMINATION: VITAL SIGNS: At presentation, he was afebrile, temperature 97.8 degrees Fahrenheit, pulse was 131, respiratory rate was 16, blood pressure 133/88, oxygen sats were 94%, inspired oxygen concentration was not recorded, at the time I saw him, he was on room air. GENERAL: Elderly looking -Romanian male, looks his stated age, normocephalic, atraumatic, however, with delayed responses and mild cognitive dysfunction in no acute respiratory distress. HEENT: Examination of the head, eyes, ears, nose, and throat: He is anicteric. No conjunctival erythema. Grossly, no palpable lymph nodes in the supraclavicular or submandibular lymph node chains. No gross jugular venous distention. No thyromegaly. Oropharynx is a Mallampati #2 oropharynx. Oropharynx is dry. LUNGS: Auscultation of both lung ravi, lungs are clear bilaterally; however, diminished bilateral breath sounds. HEART: Sounds 1 and 2 are heard, regular rate and rhythm at the time of my evaluation. No rubs or murmurs. ABDOMEN: Soft, flat. Bowel sounds are positive. Mild epigastric tenderness. No palpable hepatosplenomegaly. EXTREMITIES: Without overt digital clubbing, cyanosis, or pedal edema. Dorsalis pedis pulses are palpable bilaterally, strong. NEUROLOGIC: Pupils are equal, round, about 3-4 mm, reactive to light. Extraocular muscle movements appeared intact. He moves all 4 extremities spontaneously. The skin is of normal turgor. No cellulitis. No rash. LABORATORY DATA: From my review are as follows: Admission white cell count 24,900, hemoglobin 16.0, hematocrit 50.3, platelet count 222. No significant band forms reported. He does have a left shift. Venous blood gas showed a pH of 7.21. Serum sodium was 126, potassium 5.5, chloride 78, bicarbonate was 10, BUN was 39, creatinine was 2.2, glucose was 818. Hemoglobin A1c 10.6. Phosphorus and magnesium were elevated. Otherwise, liver function tests essentially within normal limits. Urinalysis: He was spilling glucose, otherwise it was unremarkable, negative for nitrites and leukocyte esterase. No microbiology studies. No radiographic studies. ASSESSMENT: 1. Diabetic ketoacidosis. 2. Acute encephalopathy, possibly toxic metabolic, but may be of other etiology. 3. Leukocytosis, etiology unclear. 4. Hyperkalemia. 5. Acute kidney injury. 6. History of hypertension. 7. History of chronic kidney disease. 8. Arthritis. 9. Nephrolithiasis. 10. Ulcerative colitis. PLAN: Continue DKA protocol. Continue IV insulin therapy. The gap is still elevated. We will continue until the anion gap is closed and transition him to long-acting insulin as well as oral medication. As usual, the question is why he went into DKA, despite the fact that he did stop taking his medications we need to rule out other things. I will do a quick acute coronary syndrome workup, get a set of cardiac enzymes, get a 12-lead EKG. I will also get a lactic acid level and a CRP level. If those are elevated, I will start him on empiric antibiotic therapy. His cough is nonproductive at this time. If he starts to cough up some phlegm, I will go ahead and have that sent for cultures and sensitivities. A chest x-ray will be ordered and reviewed, also used to help make decisions in terms of anti-infective therapy. He may benefit from a neurologic evaluation. I will try and reach out to family or next of kin if that is available and see if this is indeed a significant change in mental status. If that is the case, Neurology evaluation may be in order. He is appropriately on GI and DVT prophylaxis. Flu and pneumonia vaccination will be per protocol. Thank you very much for the consult. We will follow along. We will make further recommendations as picture progresses/becomes clearer. JOB# [id number] CHARY/MARY
[2017-12-17] MEDS: D5/0.45NS 1,000 ML IV SCH (05:06)
--- NOTE | 2017-12-17 08:30 | Progress Note ---
Assessment and Plan Assessment and plan: 67-year-old -[place] male with history of IDDM on Novolog mix pens BID changed his insurance one month ago.In the ensuing change his Novalog mix pens were not authorised and only Humalog 70/30 were authorised. Because of confusion and non availability of insulin stopped taking his insulin for about 3 weeks As possible as the room patient has been having intermittent nausea vomiting unable to keep any food down for a few days. Recurrent DKA BRIGHT Encephalopathy improving Colitis SIRS secondary to DKA Hyperkalemia Hypertension Acute Gastroenteritis-Improve Metabolic Acidosis BPH Leukocytosis possibly reactive Plan Awaiting todays lab to transition to long acting and transfer out of the ICU patient promises to be complaint with blood sugar going forward START DIET once gap closed Continue losartan as initiated Continue PPI Continue insulin drip and transitioned to long-acting insulin once anion gap has closed We will resume 70/30 daily Humalog mix this is what is approved DVT/GI porphy can transfer out of ICU once gap is closed The high probability of a clinically significant, sudden or life threatening deterioration of the [endocrine] system(s) required my full and direct attention , intervention and personal management. The aggregate critical care time was [ 35 minutes] minutes. This time is in addition to time spent performing reported procedures but includes the following: [X] Data Review and interpretation [X] Patient assessment and monitoring of vital signs [X] Documentation [X] Medication orders and management History Interval history: Patient seen and examined this morning in no acute distress. Reports generalized weakness. restlessness this am Hospitalist Physical - Physical exam Narrative exam: VITAL SIGNS: Reviewed. GENERAL: The patient appeared well nourished and normally developed. Vital signs as documented. HEAD: No signs of head trauma. EYES: Pupils are equal. Extraocular motions intact. EARS: Hearing grossly intact. MOUTH: Oropharynx is normal. NECK: No adenopathy, no JVD. CHEST: Chest with clear breath sounds bilaterally. No wheezes, rales, or rhonchi. CARDIAC: Regular rate and rhythm. S1 and S2, without murmurs, gallops, or rubs. VASCULAR: No Edema. Peripheral pulses normal and equal in all extremities. ABDOMEN: Soft, without detectable tenderness. No sign of distention. No rebound or guarding, and no masses palpated. Bowel Sounds normal. MUSCULOSKELETAL: Good range of motion of all major joints. Extremities without clubbing, cyanosis or edema. NEUROLOGIC EXAM: Alert and oriented x 3. No focal sensory or strength deficits. Speech normal. Follows commands. PSYCHIATRIC: Mood normal. SKIN: No rash or lesions. - Constitutional Vitals: Temp Pulse Resp BP Pulse Ox 97.1 F L 98 H 20 129/84 97 12/17/17 04:00 12/17/17 07:00 12/17/17 07:00 12/17/17 07:00 12/17/17 06:00 General appearance: Present: no acute distress, well-nourished Results - Labs CBC & Chem 7: 12/16/17 04:29 12/16/17 17:30 Labs: Laboratory Last Values WBC 25.5 K/mm3 (4.5-11.0) H 12/16/17 04:29 RBC 5.26 M/mm3 (3.65-5.03) H 12/16/17 04:29 Hgb 15.1 gm/dl (11.8-15.2) 12/16/17 04:29 Hct 45.7 % (35.5-45.6) H 12/16/17 04:29 MCV 87 fl (84-94) 12/16/17 04:29 MCH 29 pg (28-32) 12/16/17 04:29 MCHC 33 % (32-34) 12/16/17 04:29 RDW 14.0 % (13.2-15.2) 12/16/17 04:29 Plt Count 201 K/mm3 (140-440) 12/16/17 04:29 Lymph % (Auto) [employer]ant 12/16/17 04:29 [place] % (Auto) [employer] 12/16/17 04:29 Eos % (Auto) [employer] 12/16/17 04:29 Baso % (Auto) [employer] 12/16/17 04:29 Lymph # [employer] 12/16/17 04:29 [place] # [employer]ant 12/16/17 04:29 Eos # [employer] Accountant 12/16/17 04:29 Baso # [employer] Accountant 12/16/17 04:29 Add Manual Diff Complete 12/16/17 04:29 Total Counted 100 12/16/17 04:29 Seg Neutrophils % [employer] Accountant 12/16/17 04:29 Seg Neuts % (Manual) 70.0 % (40.0-70.0) 12/16/17 04:29 Band Neutrophils % 4.0 % 12/16/17 04:29 Lymphocytes % (Manual) 15.0 % (13.4-35.0) 12/16/17 04:29 Reactive Lymphs % (Man) 0 % 12/16/17 04:29 Monocytes % (Manual) 11.0 % (0.0-7.3) H 12/16/17 04:29 Eosinophils % (Manual) 0 % (0.0-4.3) 12/16/17 04:29 Basophils % (Manual) 0 % (0.0-1.8) 12/16/17 04:29 Metamyelocytes % 0 % 12/16/17 04:29 Myelocytes % 0 % 12/16/17 04:29 Promyelocytes % 0 % 12/16/17 04:29 Blast Cells % 0 % 12/16/17 04:29 Nucleated RBC % Not Reportable 12/16/17 04:29 Seg Neutrophils # [employer] Accountant 12/16/17 04:29 Seg Neutrophils # Man 17.9 K/mm3 (1.8-7.7) H 12/16/17 04:29 Band Neutrophils # 1.0 K/mm3 12/16/17 04:29 Lymphocytes # (Manual) 3.8 K/mm3 (1.2-5.4) 12/16/17 04:29 Abs React Lymphs (Man) 0.0 K/mm3 12/16/17 04:29 Monocytes # (Manual) 2.8 K/mm3 (0.0-0.8) H 12/16/17 04:29 Eosinophils # (Manual) 0.0 K/mm3 (0.0-0.4) 12/16/17 04:29 Basophils # (Manual) 0.0 K/mm3 (0.0-0.1) 12/16/17 04:29 Metamyelocytes # 0.0 K/mm3 12/16/17 04:29 Myelocytes # 0.0 K/mm3 12/16/17 04:29 Promyelocytes # 0.0 K/mm3 12/16/17 04:29 Blast Cells # 0.0 K/mm3 12/16/17 04:29 WBC Morphology Not Reportable 12/16/17 04:29 Hypersegmented Neuts Not Reportable 12/16/17 04:29 Hyposegmented Neuts Not Reportable 12/16/17 04:29 Hypogranular Neuts Not Reportable 12/16/17 04:29 Smudge Cells Not Reportable 12/16/17 04:29 Toxic Granulation Not Reportable 12/16/17 04:29 Toxic Vacuolation Not Reportable 12/16/17 04:29 Dohle Bodies Not Reportable 12/16/17 04:29 Pelger-Huet Anomaly Not Reportable 12/16/17 04:29 Eliezer Rods Not Reportable 12/16/17 04:29 Platelet Estimate Consistent w auto 12/16/17 04:29 Clumped Platelets Not Reportable 12/16/17 04:29 Plt Clumps, EDTA Not Reportable 12/16/17 04:29 Large Platelets Not Reportable 12/16/17 04:29 Giant Platelets Not Reportable 12/16/17 04:29 Platelet Satelliting Not Reportable 12/16/17 04:29 Plt Morphology Comment Not Reportable 12/16/17 04:29 RBC Morphology Not Reportable 12/16/17 04:29 Dimorphic RBCs Not Reportable 12/16/17 04:29 Polychromasia Not Reportable 12/16/17 04:29 Hypochromasia Not Reportable 12/16/17 04:29 Poikilocytosis Not Reportable 12/16/17 04:29 Anisocytosis 1+ 12/16/17 04:29 Microcytosis Not Reportable 12/16/17 04:29 Macrocytosis Not Reportable 12/16/17 04:29 Spherocytes Not Reportable 12/16/17 04:29 Pappenheimer Bodies Not Reportable 12/16/17 04:29 Sickle Cells Not Reportable 12/16/17 04:29 Target Cells Not Reportable 12/16/17 04:29 Tear Drop Cells Not Reportable 12/16/17 04:29 Ovalocytes Not Reportable 12/16/17 04:29 Helmet Cells Not Reportable 12/16/17 04:29 Bernal-Flagstaff Bodies Not Reportable 12/16/17 04:29 Ennis Rings Not Reportable 12/16/17 04:29 Sebas Cells Not Reportable 12/16/17 04:29 Bite Cells Not Reportable 12/16/17 04:29 Crenated Cell Not Reportable 12/16/17 04:29 Elliptocytes Not Reportable 12/16/17 04:29 Acanthocytes (Spur) Not Reportable 12/16/17 04:29 Rouleaux Not Reportable 12/16/17 04:29 Hemoglobin C Crystals Not Reportable 12/16/17 04:29 Schistocytes Not Reportable 12/16/17 04:29 Malaria parasites Not Reportable 12/16/17 04:29 Josias Bodies Not Reportable 12/16/17 04:29 Hem Pathologist Commnt No 12/16/17 04:29 VBG pH 7.206 (7.320-7.420) L 12/15/17 17:27 Sodium 143 mmol/L (137-145) 12/16/17 17:30 Potassium 4.4 mmol/L (3.6-5.0) 12/16/17 17:30 Chloride 106.3 mmol/L (98-107) 12/16/17 17:30 Carbon Dioxide 20 mmol/L (22-30) L 12/16/17 17:30 Anion Gap 21 mmol/L 12/16/17 17:30 BUN 22 mg/dL (9-20) H 12/16/17 17:30 Creatinine 1.2 mg/dL (0.8-1.5) 12/16/17 17:30 Estimated GFR > 60 ml/min 12/16/17 17:30 BUN/Creatinine Ratio 18 % 12/16/17 17:30 Glucose 240 mg/dL (75-100) H 12/16/17 17:30 POC Glucose 200 (70-105) H 12/17/17 07:15 Hemoglobin A1c 10.6 % (4-6) H 12/15/17 17:27 Lactic Acid 1.70 mmol/L (0.7-2.0) 12/16/17 13:13 Calcium 8.8 mg/dL (8.4-10.2) 12/16/17 17:30 Phosphorus 4.00 mg/dL (2.5-4.5) D 12/15/17 20:11 Magnesium 2.50 mg/dL (1.7-2.3) H 12/15/17 20:11 Total Bilirubin 0.70 mg/dL (0.1-1.2) 12/16/17 04:29 AST 14 units/L (5-40) 12/16/17 04:29 ALT 17 units/L (7-56) 12/16/17 04:29 Alkaline Phosphatase 110 units/L (35-129) 12/16/17 04:29 Total Creatine Kinase 113 units/L (55-170) 12/16/17 13:13 CK-MB (CK-2) 2.7 ng/mL (0.0-4.0) 12/16/17 13:13 CK-MB (CK-2) Rel Index 2.3 (0-4) 12/16/17 13:13 Troponin T < 0.010 ng/mL (0.00-0.029) 12/16/17 17:30 C-Reactive Protein 10.00 mg/dL (0.00-1.30) H 12/16/17 13:13 Total Protein 7.6 g/dL (6.3-8.2) 12/16/17 04:29 Albumin 4.0 g/dL (3.9-5) 12/16/17 04:29 Albumin/Globulin Ratio 1.1 % 12/16/17 04:29 Triglycerides 230 mg/dL (2-149) H 12/15/17 17:27 Cholesterol 139 mg/dL (50-199) 12/15/17 17:27 LDL Cholesterol Direct 58 mg/dL (50-130) 12/15/17 17:27 HDL Cholesterol 35 mg/dL (40-59) L 12/15/17 17:27 Cholesterol/HDL Ratio 3.97 % 12/15/17 17:27 Urine Color Straw (Yellow) 12/15/17 18:57 Urine Turbidity Clear (Clear) 12/15/17 18:57 Urine pH 5.0 (5.0-7.0) 12/15/17 18:57 Ur Specific [place] 1.018 (1.003-1.030) 12/15/17 18:57 Urine Protein <15 mg/dl mg/dL (Negative) 12/15/17 18:57 Urine Glucose (UA) >=500 mg/dL (Negative) 12/15/17 18:57 Urine Ketones 20 mg/dL (Negative) 12/15/17 18:57 Urine Blood Sm (Negative) 12/15/17 18:57 Urine Nitrite Neg (Negative) 12/15/17 18:57 Urine Bilirubin Neg (Negative) 12/15/17 18:57 Urine Urobilinogen < 2.0 mg/dL (<2.0) 12/15/17 18:57 Ur Leukocyte Esterase Neg (Negative) 12/15/17 18:57 Urine WBC (Auto) 2.0 /HPF (0.0-6.0) 12/15/17 18:57 Urine RBC (Auto) 1.0 /HPF (0.0-6.0) 12/15/17 18:57 Urine Mucus Few /HPF 12/15/17 18:57 Urine Creatinine 78.9 mg/dL (0.1-20.0) H 12/16/17 05:30 Urine Microalbumin 9.5 mg/dL (0.1-34.0) 12/16/17 05:30 Microalb/Creat Ratio 120.4 ug/mg 12/16/17 05:30
[2017-12-17 09:27] LABS: Basophils % (Auto) 0.2 % (0.0-1.8); Eosinophils % (Auto) 0.3 % (0.0-4.3); Hemoglobin 12.8 gm/dl (11.8-15.2); Lymphocytes # (Auto) 2.2 K/mm3 (1.2-5.4); Lymphocytes % (Auto) 17.9 % (13.4-35.0); Mean Corpuscular HGB Conc 34 % (32-34); Mean Corpuscular Hemoglobin 30 pg (28-32); Mean Corpuscular Volume 87 fl (84-94); Monocytes # (Auto) 1.3 K/mm3 (0.0-0.8); Monocytes % (Auto) 10.9 % (0.0-7.3); Platelet Count 144 K/mm3 (140-440); Red Blood Count 4.31 M/mm3 (3.65-5.03)
[2017-12-17 09:29] LABS: Hematocrit 39.3 % (35.5-45.6)
[2017-12-17 09:32] LABS: Calcium 8.6 mg/dL (8.4-10.2)
--- NOTE | 2017-12-17 11:07 | Progress Note ---
Assessment and Plan Recurrent admissions for DKA h/o Medical non-compliance BRIGHT Encephalopathy improving Colitis SIRS secondary to DKA Hyperkalemia Hypertension Acute Gastroenteritis-Improved Metabolic Acidosis BPH Leukocytosis possibly reactive Continue with treatment per DKA protocol Continue insulin infusion until AG is closed, then transition to weight based insulin Follow up cultures, then de-escalate antibiotics VTE prophylaxis Bowel rest for colitis Replace and treat electrolyte abnormalities as indicated Diabetic education and counselling Need for adherence to medical therapies emphasized and potential of from non-adherence discussed Subjective Date of service: 12/17/17 Principal diagnosis: Diabetic ketoacidosis Interval history: No acute overnight events. Vitals, labs, medications, chart imaging reviewed. discussed with RN. Patient wants to eat Objective - Exam Narrative Exam: VITAL SIGNS: Reviewed. GENERAL: The patient appeared well nourished and normally developed. Vital signs as documented. HEAD: No signs of head trauma. EYES: Pupils are equal. Extraocular motions intact. EARS: Hearing grossly intact. MOUTH: Oropharynx is normal. NECK: No adenopathy, no JVD. CHEST: Chest with clear breath sounds bilaterally. No wheezes, rales, or rhonchi. CARDIAC: Regular rate and rhythm. S1 and S2, without murmurs, gallops, or rubs. VASCULAR: No Edema. Peripheral pulses normal and equal in all extremities. ABDOMEN: Soft, without detectable tenderness. No sign of distention. No rebound or guarding, and no masses palpated. Bowel Sounds normal. MUSCULOSKELETAL: Good range of motion of all major joints. Extremities without clubbing, cyanosis or edema. NEUROLOGIC EXAM: Alert and oriented x 3. No focal sensory or strength deficits. Speech normal. Follows commands. PSYCHIATRIC: Mood normal. SKIN: No rash or lesions. Vital Signs - 12hr 12/17/17 12/17/17 12/17/17 00:00 00:03 00:31 Temperature 97.9 F 97.9 F Pulse Rate 101 H 99 H Respiratory Rate Blood Pressure 134/85 134/85 O2 Sat by Pulse 100 96 Oximetry 12/17/17 12/17/17 12/17/17 01:00 02:00 03:00 Temperature Pulse Rate 100 H 101 H 99 H Respiratory 17 22 Rate Blood Pressure 134/85 146/80 134/87 O2 Sat by Pulse 96 95 95 Oximetry 12/17/17 12/17/17 12/17/17 04:00 05:00 06:00 Temperature 97.1 F L Pulse Rate 100 H 94 H 95 H Respiratory 24 13 21 Rate Blood Pressure 132/75 127/80 128/61 O2 Sat by Pulse 96 96 97 Oximetry 12/17/17 12/17/17 07:00 08:00 Temperature 98.2 F Pulse Rate 98 H Respiratory 20 Rate Blood Pressure 129/84 O2 Sat by Pulse Oximetry CBC and BMP: 12/18/17 04:25 12/18/17 04:25 Abnormal lab findings: Abnormal Labs 12/15/17 12/15/17 12/15/17 17:27 17:27 17:27 WBC 24.9 H RBC 5.51 H Hgb 16.0 H Hct 50.3 H [place] % (Auto) [place] # Seg Neutrophils % Seg Neuts % (Manual) 85.0 H Lymphocytes % (Manual) 5.0 L Monocytes % (Manual) Seg Neutrophils # Seg Neutrophils # Man 21.2 H Monocytes # (Manual) 1.5 H VBG pH 7.206 L Sodium 126 L Potassium 5.5 H Chloride 78.2 L Carbon Dioxide 10 L BUN 39 H Creatinine 2.2 H Glucose 840 H* POC Glucose Hemoglobin A1c Phosphorus Magnesium C-Reactive Protein Triglycerides HDL Cholesterol Urine Creatinine 12/15/17 12/15/17 12/15/17 17:27 17:27 17:27 WBC RBC Hgb Hct [place] % (Auto) [place] # Seg Neutrophils % Seg Neuts % (Manual) Lymphocytes % (Manual) Monocytes % (Manual) Seg Neutrophils # Seg Neutrophils # Man Monocytes # (Manual) VBG pH Sodium Potassium Chloride Carbon Dioxide BUN Creatinine Glucose POC Glucose Hemoglobin A1c 10.6 H Phosphorus 7.60 H Magnesium 2.60 H C-Reactive Protein Triglycerides 230 H HDL Cholesterol 35 L Urine Creatinine 12/15/17 12/15/17 12/15/17 17:30 18:16 19:22 WBC RBC Hgb Hct [place] % (Auto) [place] # Seg Neutrophils % Seg Neuts % (Manual) Lymphocytes % (Manual) Monocytes % (Manual) Seg Neutrophils # Seg Neutrophils # Man Monocytes # (Manual) VBG pH Sodium Potassium Chloride Carbon Dioxide BUN Creatinine Glucose 818 H* POC Glucose 382 H > 500 H Hemoglobin A1c Phosphorus Magnesium C-Reactive Protein Triglycerides HDL Cholesterol Urine Creatinine 12/15/17 12/15/17 12/15/17 20:11 20:11 23:09 WBC RBC Hgb Hct [place] % (Auto) [place] # Seg Neutrophils % Seg Neuts % (Manual) Lymphocytes % (Manual) Monocytes % (Manual) Seg Neutrophils # Seg Neutrophils # Man Monocytes # (Manual) VBG pH Sodium 134 L D Potassium Chloride 88.4 L Carbon Dioxide 11 L BUN 36 H Creatinine 2.1 H Glucose 578 H* POC Glucose > 500 H Hemoglobin A1c Phosphorus Magnesium 2.50 H C-Reactive Protein Triglycerides HDL Cholesterol Urine Creatinine 12/16/17 12/16/17 12/16/17 00:16 00:20 01:46 WBC RBC Hgb Hct [place] % (Auto) [place] # Seg Neutrophils % Seg Neuts % (Manual) Lymphocytes % (Manual) Monocytes % (Manual) Seg Neutrophils # Seg Neutrophils # Man Monocytes # (Manual) VBG pH Sodium 135 L Potassium 6.4 H* D Chloride 90.8 L Carbon Dioxide 8 L* 12 L BUN 34 H 32 H Creatinine 1.8 H 1.6 H Glucose 499 H 355 H POC Glucose 484 H Hemoglobin A1c Phosphorus Magnesium C-Reactive Protein Triglycerides HDL Cholesterol Urine Creatinine 12/16/17 12/16/17 12/16/17 01:56 02:22 04:05 WBC RBC Hgb Hct [place] % (Auto) [place] # Seg Neutrophils % Seg Neuts % (Manual) Lymphocytes % (Manual) Monocytes % (Manual) Seg Neutrophils # Seg Neutrophils # Man Monocytes # (Manual) VBG pH Sodium Potassium Chloride Carbon Dioxide BUN Creatinine Glucose POC Glucose 346 H 372 H 237 H Hemoglobin A1c Phosphorus Magnesium C-Reactive Protein Triglycerides HDL Cholesterol Urine Creatinine 12/16/17 12/16/17 12/16/17 04:29 04:29 05:21 WBC 25.5 H RBC 5.26 H Hgb Hct 45.7 H [place] % (Auto) [place] # Seg Neutrophils % Seg Neuts % (Manual) Lymphocytes % (Manual) Monocytes % (Manual) 11.0 H Seg Neutrophils # Seg Neutrophils # Man 17.9 H Monocytes # (Manual) 2.8 H VBG pH Sodium Potassium Chloride Carbon Dioxide 17 L BUN 29 H Creatinine 1.6 H Glucose 219 H POC Glucose 213 H Hemoglobin A1c Phosphorus Magnesium C-Reactive Protein Triglycerides HDL Cholesterol Urine Creatinine 12/16/17 12/16/17 12/16/17 05:30 05:56 06:54 WBC RBC Hgb Hct [place] % (Auto) [place] # Seg Neutrophils % Seg Neuts % (Manual) Lymphocytes % (Manual) Monocytes % (Manual) Seg Neutrophils # Seg Neutrophils # Man Monocytes # (Manual) VBG pH Sodium Potassium Chloride Carbon Dioxide BUN Creatinine Glucose POC Glucose 238 H 236 H Hemoglobin A1c Phosphorus Magnesium C-Reactive Protein Triglycerides HDL Cholesterol Urine Creatinine 78.9 H 12/16/17 12/16/17 12/16/17 08:38 09:45 10:57 WBC RBC Hgb Hct [place] % (Auto) [place] # Seg Neutrophils % Seg Neuts % (Manual) Lymphocytes % (Manual) Monocytes % (Manual) Seg Neutrophils # Seg Neutrophils # Man Monocytes # (Manual) VBG pH Sodium Potassium Chloride Carbon Dioxide BUN Creatinine Glucose POC Glucose 224 H 193 H 194 H Hemoglobin A1c Phosphorus Magnesium C-Reactive Protein Triglycerides HDL Cholesterol Urine Creatinine 12/16/17 12/16/17 12/16/17 11:38 12:03 13:12 WBC RBC Hgb Hct [place] % (Auto) [place] # Seg Neutrophils % Seg Neuts % (Manual) Lymphocytes % (Manual) Monocytes % (Manual) Seg Neutrophils # Seg Neutrophils # Man Monocytes # (Manual) VBG pH Sodium Potassium Chloride Carbon Dioxide BUN Creatinine Glucose POC Glucose 200 H 208 H 196 H Hemoglobin A1c Phosphorus Magnesium C-Reactive Protein Triglycerides HDL Cholesterol Urine Creatinine 12/16/17 12/16/17 12/16/17 13:13 13:13 14:25 WBC RBC Hgb Hct [place] % (Auto) [place] # Seg Neutrophils % Seg Neuts % (Manual) Lymphocytes % (Manual) Monocytes % (Manual) Seg Neutrophils # Seg Neutrophils # Man Monocytes # (Manual) VBG pH Sodium 147 H Potassium Chloride 110.1 H Carbon Dioxide 20 L BUN 23 H Creatinine Glucose 222 H POC Glucose 204 H Hemoglobin A1c Phosphorus Magnesium C-Reactive Protein 10.00 H Triglycerides HDL Cholesterol Urine Creatinine 12/16/17 12/16/17 12/16/17 15:21 16:27 17:30 WBC RBC Hgb Hct [place] % (Auto) [place] # Seg Neutrophils % Seg Neuts % (Manual) Lymphocytes % (Manual) Monocytes % (Manual) Seg Neutrophils # Seg Neutrophils # Man Monocytes # (Manual) VBG pH Sodium Potassium Chloride Carbon Dioxide 20 L BUN 22 H Creatinine Glucose 240 H POC Glucose 227 H 226 H Hemoglobin A1c Phosphorus Magnesium C-Reactive Protein Triglycerides HDL Cholesterol Urine Creatinine 12/16/17 12/16/17 12/16/17 17:33 18:32 19:58 WBC RBC Hgb Hct [place] % (Auto) [place] # Seg Neutrophils % Seg Neuts % (Manual) Lymphocytes % (Manual) Monocytes % (Manual) Seg Neutrophils # Seg Neutrophils # Man Monocytes # (Manual) VBG pH Sodium Potassium Chloride Carbon Dioxide BUN Creatinine Glucose POC Glucose 218 H 228 H 214 H Hemoglobin A1c Phosphorus Magnesium C-Reactive Protein Triglycerides HDL Cholesterol Urine Creatinine 12/16/17 12/16/17 12/16/17 21:22 22:08 23:15 WBC RBC Hgb Hct [place] % (Auto) [place] # Seg Neutrophils % Seg Neuts % (Manual) Lymphocytes % (Manual) Monocytes % (Manual) Seg Neutrophils # Seg Neutrophils # Man Monocytes # (Manual) VBG pH Sodium Potassium Chloride Carbon Dioxide BUN Creatinine Glucose POC Glucose 194 H 153 H 165 H Hemoglobin A1c Phosphorus Magnesium C-Reactive Protein Triglycerides HDL Cholesterol Urine Creatinine 12/17/17 12/17/17 12/17/17 00:08 01:08 02:05 WBC RBC Hgb Hct [place] % (Auto) [place] # Seg Neutrophils % Seg Neuts % (Manual) Lymphocytes % (Manual) Monocytes % (Manual) Seg Neutrophils # Seg Neutrophils # Man Monocytes # (Manual) VBG pH Sodium Potassium Chloride Carbon Dioxide BUN Creatinine Glucose POC Glucose 170 H 184 H 198 H Hemoglobin A1c Phosphorus Magnesium C-Reactive Protein Triglycerides HDL Cholesterol Urine Creatinine 12/17/17 12/17/17 12/17/17 03:13 04:06 05:03 WBC RBC Hgb Hct [place] % (Auto) [place] # Seg Neutrophils % Seg Neuts % (Manual) Lymphocytes % (Manual) Monocytes % (Manual) Seg Neutrophils # Seg Neutrophils # Man Monocytes # (Manual) VBG pH Sodium Potassium Chloride Carbon Dioxide BUN Creatinine Glucose POC Glucose 189 H 165 H 128 H Hemoglobin A1c Phosphorus Magnesium C-Reactive Protein Triglycerides HDL Cholesterol Urine Creatinine 12/17/17 12/17/17 12/17/17 06:02 07:15 08:08 WBC RBC Hgb Hct [place] % (Auto) [place] # Seg Neutrophils % Seg Neuts % (Manual) Lymphocytes % (Manual) Monocytes % (Manual) Seg Neutrophils # Seg Neutrophils # Man Monocytes # (Manual) VBG pH Sodium Potassium Chloride Carbon Dioxide BUN Creatinine Glucose POC Glucose 193 H 200 H 182 H Hemoglobin A1c Phosphorus Magnesium C-Reactive Protein Triglycerides HDL Cholesterol Urine Creatinine 12/17/17 12/17/17 12/17/17 08:56 08:56 09:07 WBC 12.4 H RBC Hgb Hct [place] % (Auto) 10.9 H [place] # 1.3 H Seg Neutrophils % 70.7 H Seg Neuts % (Manual) Lymphocytes % (Manual) Monocytes % (Manual) Seg Neutrophils # 8.7 H Seg Neutrophils # Man Monocytes # (Manual) VBG pH Sodium Potassium Chloride 108.7 H Carbon Dioxide 20 L BUN Creatinine Glucose 183 H POC Glucose 193 H Hemoglobin A1c Phosphorus Magnesium C-Reactive Protein Triglycerides HDL Cholesterol Urine Creatinine
[2017-12-17] MEDS: HumaLOG SUB-Q SCH ×2 (11:30→16:37)
[2017-12-17] MEDS: PEPCID IV SCH (11:50)
[2017-12-17] MEDS: SODIUM CHLORIDE FLUSH SYRINGE 10 ML IV SCH ×2 (11:51→21:31)
[2017-12-17] MEDS ORDERED: Fluarix Quad 2017-2018(36 MOS+ IM ONE (12:00)
[2017-12-17] MEDS: DELZICOL PO SCH ×3 (12:05→21:26)
[2017-12-17] MEDS: HEPARIN SUB-Q SCH ×2 (12:07→21:08)
[2017-12-17] MEDS: FLOMAX PO SCH (12:08)
[2017-12-17] MEDS: TRICOR PO SCH (12:08)
[2017-12-17] MEDS: COZAAR PO SCH (12:09)
[2017-12-17] MEDS ORDERED: HumaLOG SUB-Q ONE (16:33)
[2017-12-17 17:45] LABS: Alanine Aminotransferase 13 units/L (7-56); Albumin 3.4 g/dL (3.9-5); BUN/Creatinine Ratio 12; Blood Urea Nitrogen 19 mg/dL (9-20); Calcium 8.8 mg/dL (8.4-10.2)
[2017-12-17 20:45] LABS: Calcium 8.8 mg/dL (8.4-10.2)
[2017-12-17] MEDS ORDERED: D5W/0.45% NACL/KCL 20 MEQ 20 MEQ/1,000 ML BAG IV SCH (21:00)
[2017-12-17] MEDS: HumuLIN R 100 UNITS in NACL 0.9% 99 ML IV SCH ×3 (21:12→23:23)
[2017-12-18 01:03] LABS: Calcium 8.7 mg/dL (8.4-10.2)
[2017-12-18] MEDS: HumuLIN R 100 UNITS in NACL 0.9% 99 ML IV SCH ×2 (01:12→04:22)
[2017-12-18 04:53] LABS: Hemoglobin 12.8 gm/dl (11.8-15.2); Mean Corpuscular HGB Conc 35 % (32-34); Mean Corpuscular Hemoglobin 30 pg (28-32); Mean Corpuscular Volume 85 fl (84-94); Platelet Count 142 K/mm3 (140-440); Red Blood Count 4.33 M/mm3 (3.65-5.03)
[2017-12-18 05:12] LABS: BUN/Creatinine Ratio 12; Blood Urea Nitrogen 15 mg/dL (9-20); Calcium 8.7 mg/dL (8.4-10.2); Hemolysis Index 6
[2017-12-18] MEDS: DELZICOL PO SCH ×3 (08:21→22:42)
[2017-12-18] MEDS: SODIUM CHLORIDE FLUSH SYRINGE 10 ML IV SCH (10:25)
[2017-12-18] MEDS: COZAAR PO SCH (11:00)
[2017-12-18] MEDS: HEPARIN SUB-Q SCH ×2 (11:23→22:47)
[2017-12-18] MEDS: PEPCID IV SCH (11:24)
--- NOTE | 2017-12-18 11:46 | Progress Note ---
Assessment and Plan Recurrent admissions for DKA h/o Medical non-compliance BRIGHT Encephalopathy improving Colitis SIRS secondary to DKA Hyperkalemia Hypertension Acute Gastroenteritis-Improved Metabolic Acidosis BPH Leukocytosis possibly reactive Continue with treatment per DKA protocol Continue insulin infusion until AG is closed, then transition to weight based insulin Follow up cultures, then de-escalate antibiotics VTE prophylaxis Bowel rest for colitis Replace and treat electrolyte abnormalities as indicated Diabetic education and counselling Need for adherence to medical therapies emphasized and potential of from non-adherence discussed Subjective Date of service: 12/18/17 Principal diagnosis: Diabetic ketoacidosis Interval history: No acute overnight events. Vitals, labs, medications, chart imaging reviewed. discussed with RN. Patient wants to eat Objective - Exam Narrative Exam: VITAL SIGNS: Reviewed. GENERAL: The patient appeared well nourished and normally developed. Vital signs as documented. HEAD: No signs of head trauma. EYES: Pupils are equal. Extraocular motions intact. EARS: Hearing grossly intact. MOUTH: Oropharynx is normal. NECK: No adenopathy, no JVD. CHEST: Chest with clear breath sounds bilaterally. No wheezes, rales, or rhonchi. CARDIAC: Regular rate and rhythm. S1 and S2, without murmurs, gallops, or rubs. VASCULAR: No Edema. Peripheral pulses normal and equal in all extremities. ABDOMEN: Soft, without detectable tenderness. No sign of distention. No rebound or guarding, and no masses palpated. Bowel Sounds normal. MUSCULOSKELETAL: Good range of motion of all major joints. Extremities without clubbing, cyanosis or edema. NEUROLOGIC EXAM: Alert and oriented x 3. No focal sensory or strength deficits. Speech normal. Follows commands. PSYCHIATRIC: Mood normal. SKIN: No rash or lesions. Vital Signs - 12hr 12/17/17 12/18/17 12/18/17 23:00 00:00 01:00 Temperature 98.1 F Pulse Rate 98 H 102 H 103 H Respiratory 22 27 H 24 Rate Blood Pressure 141/92 142/91 143/94 O2 Sat by Pulse 82 L 96 99 Oximetry 12/18/17 12/18/17 12/18/17 03:00 04:00 05:00 Temperature 98.7 F Pulse Rate 107 H 113 H 107 H Respiratory 21 19 28 H Rate Blood Pressure 139/93 139/93 142/93 O2 Sat by Pulse 97 96 98 Oximetry 12/18/17 12/18/17 06:00 08:00 Temperature 98.0 F Pulse Rate 104 H Respiratory 14 Rate Blood Pressure 148/89 O2 Sat by Pulse 98 Oximetry CBC and BMP: 12/18/17 04:25 12/18/17 04:25 Abnormal lab findings: Abnormal Labs 12/15/17 12/15/17 12/15/17 17:27 17:27 17:27 WBC 24.9 H RBC 5.51 H Hgb 16.0 H Hct 50.3 H MCHC Bath % (Auto) Bath # Seg Neutrophils % Seg Neuts % (Manual) 85.0 H Lymphocytes % (Manual) 5.0 L Monocytes % (Manual) Seg Neutrophils # Seg Neutrophils # Man 21.2 H Monocytes # (Manual) 1.5 H VBG pH 7.206 L Sodium 126 L Potassium 5.5 H Chloride 78.2 L Carbon Dioxide 10 L BUN 39 H Creatinine 2.2 H Glucose 840 H* POC Glucose Hemoglobin A1c Phosphorus Magnesium C-Reactive Protein Albumin Triglycerides HDL Cholesterol Urine Creatinine 12/15/17 12/15/17 12/15/17 17:27 17:27 17:27 WBC RBC Hgb Hct MCHC Bath % (Auto) Bath # Seg Neutrophils % Seg Neuts % (Manual) Lymphocytes % (Manual) Monocytes % (Manual) Seg Neutrophils # Seg Neutrophils # Man Monocytes # (Manual) VBG pH Sodium Potassium Chloride Carbon Dioxide BUN Creatinine Glucose POC Glucose Hemoglobin A1c 10.6 H Phosphorus 7.60 H Magnesium 2.60 H C-Reactive Protein Albumin Triglycerides 230 H HDL Cholesterol 35 L Urine Creatinine 12/15/17 12/15/17 12/15/17 17:30 18:16 19:22 WBC RBC Hgb Hct MCHC Bath % (Auto) Bath # Seg Neutrophils % Seg Neuts % (Manual) Lymphocytes % (Manual) Monocytes % (Manual) Seg Neutrophils # Seg Neutrophils # Man Monocytes # (Manual) VBG pH Sodium Potassium Chloride Carbon Dioxide BUN Creatinine Glucose 818 H* POC Glucose 382 H > 500 H Hemoglobin A1c Phosphorus Magnesium C-Reactive Protein Albumin Triglycerides HDL Cholesterol Urine Creatinine 12/15/17 12/15/17 12/15/17 20:11 20:11 23:09 WBC RBC Hgb Hct MCHC Bath % (Auto) Bath # Seg Neutrophils % Seg Neuts % (Manual) Lymphocytes % (Manual) Monocytes % (Manual) Seg Neutrophils # Seg Neutrophils # Man Monocytes # (Manual) VBG pH Sodium 134 L D Potassium Chloride 88.4 L Carbon Dioxide 11 L BUN 36 H Creatinine 2.1 H Glucose 578 H* POC Glucose > 500 H Hemoglobin A1c Phosphorus Magnesium 2.50 H C-Reactive Protein Albumin Triglycerides HDL Cholesterol Urine Creatinine 12/16/17 12/16/17 12/16/17 00:16 00:20 01:46 WBC RBC Hgb Hct MCHC Bath % (Auto) Bath # Seg Neutrophils % Seg Neuts % (Manual) Lymphocytes % (Manual) Monocytes % (Manual) Seg Neutrophils # Seg Neutrophils # Man Monocytes # (Manual) VBG pH Sodium 135 L Potassium 6.4 H* D Chloride 90.8 L Carbon Dioxide 8 L* 12 L BUN 34 H 32 H Creatinine 1.8 H 1.6 H Glucose 499 H 355 H POC Glucose 484 H Hemoglobin A1c Phosphorus Magnesium C-Reactive Protein Albumin Triglycerides HDL Cholesterol Urine Creatinine 12/16/17 12/16/17 12/16/17 01:56 02:22 04:05 WBC RBC Hgb Hct MCHC Bath % (Auto) Bath # Seg Neutrophils % Seg Neuts % (Manual) Lymphocytes % (Manual) Monocytes % (Manual) Seg Neutrophils # Seg Neutrophils # Man Monocytes # (Manual) VBG pH Sodium Potassium Chloride Carbon Dioxide BUN Creatinine Glucose POC Glucose 346 H 372 H 237 H Hemoglobin A1c Phosphorus Magnesium C-Reactive Protein Albumin Triglycerides HDL Cholesterol Urine Creatinine 12/16/17 12/16/17 12/16/17 04:29 04:29 05:21 WBC 25.5 H RBC 5.26 H Hgb Hct 45.7 H MCHC Bath % (Auto) Bath # Seg Neutrophils % Seg Neuts % (Manual) Lymphocytes % (Manual) Monocytes % (Manual) 11.0 H Seg Neutrophils # Seg Neutrophils # Man 17.9 H Monocytes # (Manual) 2.8 H VBG pH Sodium Potassium Chloride Carbon Dioxide 17 L BUN 29 H Creatinine 1.6 H Glucose 219 H POC Glucose 213 H Hemoglobin A1c Phosphorus Magnesium C-Reactive Protein Albumin Triglycerides HDL Cholesterol Urine Creatinine 12/16/17 12/16/17 12/16/17 05:30 05:56 06:54 WBC RBC Hgb Hct MCHC Bath % (Auto) Bath # Seg Neutrophils % Seg Neuts % (Manual) Lymphocytes % (Manual) Monocytes % (Manual) Seg Neutrophils # Seg Neutrophils # Man Monocytes # (Manual) VBG pH Sodium Potassium Chloride Carbon Dioxide BUN Creatinine Glucose POC Glucose 238 H 236 H Hemoglobin A1c Phosphorus Magnesium C-Reactive Protein Albumin Triglycerides HDL Cholesterol Urine Creatinine 78.9 H 12/16/17 12/16/17 12/16/17 08:38 09:45 10:57 WBC RBC Hgb Hct MCHC Bath % (Auto) Bath # Seg Neutrophils % Seg Neuts % (Manual) Lymphocytes % (Manual) Monocytes % (Manual) Seg Neutrophils # Seg Neutrophils # Man Monocytes # (Manual) VBG pH Sodium Potassium Chloride Carbon Dioxide BUN Creatinine Glucose POC Glucose 224 H 193 H 194 H Hemoglobin A1c Phosphorus Magnesium C-Reactive Protein Albumin Triglycerides HDL Cholesterol Urine Creatinine 12/16/17 12/16/17 12/16/17 11:38 12:03 13:12 WBC RBC Hgb Hct MCHC Bath % (Auto) Bath # Seg Neutrophils % Seg Neuts % (Manual) Lymphocytes % (Manual) Monocytes % (Manual) Seg Neutrophils # Seg Neutrophils # Man Monocytes # (Manual) VBG pH Sodium Potassium Chloride Carbon Dioxide BUN Creatinine Glucose POC Glucose 200 H 208 H 196 H Hemoglobin A1c Phosphorus Magnesium C-Reactive Protein Albumin Triglycerides HDL Cholesterol Urine Creatinine 12/16/17 12/16/17 12/16/17 13:13 13:13 14:25 WBC RBC Hgb Hct MCHC Bath % (Auto) Bath # Seg Neutrophils % Seg Neuts % (Manual) Lymphocytes % (Manual) Monocytes % (Manual) Seg Neutrophils # Seg Neutrophils # Man Monocytes # (Manual) VBG pH Sodium 147 H Potassium Chloride 110.1 H Carbon Dioxide 20 L BUN 23 H Creatinine Glucose 222 H POC Glucose 204 H Hemoglobin A1c Phosphorus Magnesium C-Reactive Protein 10.00 H Albumin Triglycerides HDL Cholesterol Urine Creatinine 12/16/17 12/16/17 12/16/17 15:21 16:27 17:30 WBC RBC Hgb Hct MCHC Bath % (Auto) Bath # Seg Neutrophils % Seg Neuts % (Manual) Lymphocytes % (Manual) Monocytes % (Manual) Seg Neutrophils # Seg Neutrophils # Man Monocytes # (Manual) VBG pH Sodium Potassium Chloride Carbon Dioxide 20 L BUN 22 H Creatinine Glucose 240 H POC Glucose 227 H 226 H Hemoglobin A1c Phosphorus Magnesium C-Reactive Protein Albumin Triglycerides HDL Cholesterol Urine Creatinine 12/16/17 12/16/17 12/16/17 17:33 18:32 19:58 WBC RBC Hgb Hct MCHC Bath % (Auto) Bath # Seg Neutrophils % Seg Neuts % (Manual) Lymphocytes % (Manual) Monocytes % (Manual) Seg Neutrophils # Seg Neutrophils # Man Monocytes # (Manual) VBG pH Sodium Potassium Chloride Carbon Dioxide BUN Creatinine Glucose POC Glucose 218 H 228 H 214 H Hemoglobin A1c Phosphorus Magnesium C-Reactive Protein Albumin Triglycerides HDL Cholesterol Urine Creatinine 12/16/17 12/16/17 12/16/17 21:22 22:08 23:15 WBC RBC Hgb Hct MCHC Bath % (Auto) Bath # Seg Neutrophils % Seg Neuts % (Manual) Lymphocytes % (Manual) Monocytes % (Manual) Seg Neutrophils # Seg Neutrophils # Man Monocytes # (Manual) VBG pH Sodium Potassium Chloride Carbon Dioxide BUN Creatinine Glucose POC Glucose 194 H 153 H 165 H Hemoglobin A1c Phosphorus Magnesium C-Reactive Protein Albumin Triglycerides HDL Cholesterol Urine Creatinine 12/17/17 12/17/17 12/17/17 00:08 01:08 02:05 WBC RBC Hgb Hct MCHC Bath % (Auto) Bath # Seg Neutrophils % Seg Neuts % (Manual) Lymphocytes % (Manual) Monocytes % (Manual) Seg Neutrophils # Seg Neutrophils # Man Monocytes # (Manual) VBG pH Sodium Potassium Chloride Carbon Dioxide BUN Creatinine Glucose POC Glucose 170 H 184 H 198 H Hemoglobin A1c Phosphorus Magnesium C-Reactive Protein Albumin Triglycerides HDL Cholesterol Urine Creatinine 12/17/17 12/17/17 12/17/17 03:13 04:06 05:03 WBC RBC Hgb Hct MCHC Bath % (Auto) Bath # Seg Neutrophils % Seg Neuts % (Manual) Lymphocytes % (Manual) Monocytes % (Manual) Seg Neutrophils # Seg Neutrophils # Man Monocytes # (Manual) VBG pH Sodium Potassium Chloride Carbon Dioxide BUN Creatinine Glucose POC Glucose 189 H 165 H 128 H Hemoglobin A1c Phosphorus Magnesium C-Reactive Protein Albumin Triglycerides HDL Cholesterol Urine Creatinine 12/17/17 12/17/17 12/17/17 06:02 07:15 08:08 WBC RBC Hgb Hct MCHC Bath % (Auto) Bath # Seg Neutrophils % Seg Neuts % (Manual) Lymphocytes % (Manual) Monocytes % (Manual) Seg Neutrophils # Seg Neutrophils # Man Monocytes # (Manual) VBG pH Sodium Potassium Chloride Carbon Dioxide BUN Creatinine Glucose POC Glucose 193 H 200 H 182 H Hemoglobin A1c Phosphorus Magnesium C-Reactive Protein Albumin Triglycerides HDL Cholesterol Urine Creatinine 12/17/17 12/17/17 12/17/17 08:56 08:56 09:07 WBC 12.4 H RBC Hgb Hct MCHC Bath % (Auto) 10.9 H Bath # 1.3 H Seg Neutrophils % 70.7 H Seg Neuts % (Manual) Lymphocytes % (Manual) Monocytes % (Manual) Seg Neutrophils # 8.7 H Seg Neutrophils # Man Monocytes # (Manual) VBG pH Sodium Potassium Chloride 108.7 H Carbon Dioxide 20 L BUN Creatinine Glucose 183 H POC Glucose 193 H Hemoglobin A1c Phosphorus Magnesium C-Reactive Protein Albumin Triglycerides HDL Cholesterol Urine Creatinine 12/17/17 12/17/17 12/17/17 11:33 15:32 17:12 WBC RBC Hgb Hct MCHC Bath % (Auto) Bath # Seg Neutrophils % Seg Neuts % (Manual) Lymphocytes % (Manual) Monocytes % (Manual) Seg Neutrophils # Seg Neutrophils # Man Monocytes # (Manual) VBG pH Sodium Potassium Chloride Carbon Dioxide 19 L BUN Creatinine 1.6 H Glucose 344 H POC Glucose 209 H 374 H Hemoglobin A1c Phosphorus Magnesium C-Reactive Protein Albumin 3.4 L Triglycerides HDL Cholesterol Urine Creatinine 12/17/17 12/17/17 12/17/17 19:34 20:07 21:03 WBC RBC Hgb Hct MCHC Bath % (Auto) Bath # Seg Neutrophils % Seg Neuts % (Manual) Lymphocytes % (Manual) Monocytes % (Manual) Seg Neutrophils # Seg Neutrophils # Man Monocytes # (Manual) VBG pH Sodium Potassium Chloride Carbon Dioxide BUN Creatinine 1.6 H Glucose 273 H POC Glucose 307 H 249 H Hemoglobin A1c Phosphorus 1.50 L Magnesium C-Reactive Protein Albumin Triglycerides HDL Cholesterol Urine Creatinine 12/17/17 12/17/17 12/18/17 22:09 23:19 00:25 WBC RBC Hgb Hct MCHC Bath % (Auto) Bath # Seg Neutrophils % Seg Neuts % (Manual) Lymphocytes % (Manual) Monocytes % (Manual) Seg Neutrophils # Seg Neutrophils # Man Monocytes # (Manual) VBG pH Sodium Potassium Chloride Carbon Dioxide BUN Creatinine Glucose POC Glucose 281 H 227 H 227 H Hemoglobin A1c Phosphorus Magnesium C-Reactive Protein Albumin Triglycerides HDL Cholesterol Urine Creatinine 12/18/17 12/18/17 12/18/17 00:39 01:09 03:10 WBC RBC Hgb Hct MCHC Bath % (Auto) Bath # Seg Neutrophils % Seg Neuts % (Manual) Lymphocytes % (Manual) Monocytes % (Manual) Seg Neutrophils # Seg Neutrophils # Man Monocytes # (Manual) VBG pH Sodium Potassium Chloride Carbon Dioxide BUN Creatinine Glucose 198 H POC Glucose 196 H 138 H Hemoglobin A1c Phosphorus Magnesium C-Reactive Protein Albumin Triglycerides HDL Cholesterol Urine Creatinine 12/18/17 12/18/17 12/18/17 04:21 04:25 04:25 WBC RBC Hgb Hct MCHC 35 H Bath % (Auto) Bath # Seg Neutrophils % Seg Neuts % (Manual) Lymphocytes % (Manual) Monocytes % (Manual) Seg Neutrophils # Seg Neutrophils # Man Monocytes # (Manual) VBG pH Sodium Potassium Chloride 108.8 H Carbon Dioxide BUN Creatinine Glucose 128 H POC Glucose 115 H Hemoglobin A1c Phosphorus Magnesium C-Reactive Protein Albumin Triglycerides HDL Cholesterol Urine Creatinine 12/18/17 12/18/17 12/18/17 04:57 04:58 08:02 WBC RBC Hgb Hct MCHC Bath % (Auto) Bath # Seg Neutrophils % Seg Neuts % (Manual) Lymphocytes % (Manual) Monocytes % (Manual) Seg Neutrophils # Seg Neutrophils # Man Monocytes # (Manual) VBG pH Sodium Potassium Chloride Carbon Dioxide BUN Creatinine Glucose POC Glucose 135 H 155 H 198 H Hemoglobin A1c Phosphorus Magnesium C-Reactive Protein Albumin Triglycerides HDL Cholesterol Urine Creatinine 12/18/17 10:38 WBC RBC Hgb Hct MCHC Bath % (Auto) Bath # Seg Neutrophils % Seg Neuts % (Manual) Lymphocytes % (Manual) Monocytes % (Manual) Seg Neutrophils # Seg Neutrophils # Man Monocytes # (Manual) VBG pH Sodium Potassium Chloride Carbon Dioxide BUN Creatinine Glucose POC Glucose 121 H Hemoglobin A1c Phosphorus Magnesium C-Reactive Protein Albumin Triglycerides HDL Cholesterol Urine Creatinine
[2017-12-18] MEDS: TRICOR PO SCH (12:00)
[2017-12-18] MEDS ORDERED: D50W (25GM) Syringe IV PRN (12:47)
[2017-12-18 14:09] LABS: BUN/Creatinine Ratio 10; Blood Urea Nitrogen 13 mg/dL (9-20); Calcium 8.6 mg/dL (8.4-10.2); Hemolysis Index 4
--- NOTE | 2017-12-18 16:06 | Progress Note ---
Assessment and Plan Assessment and plan: Patient is a 67-year-old -Citizen Of [place] man with history of IDDM on Novolog who presented with hyperglycemia Recurrent DKA BRIGHT Encephalopathy improving Colitis SIRS secondary to DKA Hyperkalemia Hypertension Acute Gastroenteritis-Improve Metabolic Acidosis BPH Leukocytosis possibly reactive Plan START DIET gap closed Continue losartan as initiated Continue PPI Continue insulin drip and transitioned to long-acting insulin once anion gap has closed We will resume 70/30 daily Humalog mix this is what is approved DVT/GI porphy can transfer out of ICU once gap is closed History Interval history: Patient was seen and examined. Follow-up on current diagnosis of hyperglycemia. Overnight uneventful. Patient denies any chest pain, shortness breath, nausea/vomiting or severe headaches. Imaging, nursing note, chart, labs and old chart reviewed. Discussed with patient. Hospitalist Physical - Physical exam Narrative exam: GEN: WDWN, NAD, AWAKE, ALERT, ORIENTATED x 3 HEENT: NCAT, EOMI, PERRL, OP Clear NECK: supple, no adenopathy, no thyromegaly, no JVD CVS/HEART: RRR, NORMAL S1S2, pulses present bilaterally CHEST/LUNGS: CTA B, Symmetrical chest expansion, good air entry bilaterally GI/Abdomen: soft, NTND, good bowel sounds, no guarding or rebound /Bladder: no suprapubic tenderness, no CVA or paraspinal tenderness EXT/Skin: no c/c/e, no obvious rash MSK: FROM x 4 Neuro: CN 2-12 grossly intact, no new focal deficits Psych: calm - Constitutional Vitals: Temp Pulse Resp BP Pulse Ox 99.6 F 104 H 14 148/89 98 12/18/17 15:46 12/18/17 06:00 12/18/17 06:00 12/18/17 06:00 12/18/17 06:00 General appearance: Present: no acute distress, well-nourished Results - Labs CBC & Chem 7: 12/18/17 04:25 12/18/17 13:33 Labs: Laboratory Last Values WBC 11.0 K/mm3 (4.5-11.0) 12/18/17 04:25 RBC 4.33 M/mm3 (3.65-5.03) 12/18/17 04:25 Hgb 12.8 gm/dl (11.8-15.2) 12/18/17 04:25 Hct 37.0 % (35.5-45.6) 12/18/17 04:25 MCV 85 fl (84-94) 12/18/17 04:25 MCH 30 pg (28-32) 12/18/17 04:25 MCHC 35 % (32-34) H 12/18/17 04:25 RDW 14.0 % (13.2-15.2) 12/18/17 04:25 Plt Count 142 K/mm3 (140-440) 12/18/17 04:25 Lymph % (Auto) 17.9 % (13.4-35.0) 12/17/17 08:56 [place] % (Auto) 10.9 % (0.0-7.3) H 12/17/17 08:56 Eos % (Auto) 0.3 % (0.0-4.3) 12/17/17 08:56 Baso % (Auto) 0.2 % (0.0-1.8) 12/17/17 08:56 Lymph # 2.2 K/mm3 (1.2-5.4) 12/17/17 08:56 [place] # 1.3 K/mm3 (0.0-0.8) H 12/17/17 08:56 Eos # 0.0 K/mm3 (0.0-0.4) 12/17/17 08:56 Baso # 0.0 K/mm3 (0.0-0.1) 12/17/17 08:56 Add Manual Diff Complete 12/16/17 04:29 Total Counted 100 12/16/17 04:29 Seg Neutrophils % 70.7 % (40.0-70.0) H 12/17/17 08:56 Seg Neuts % (Manual) 70.0 % (40.0-70.0) 12/16/17 04:29 Band Neutrophils % 4.0 % 12/16/17 04:29 Lymphocytes % (Manual) 15.0 % (13.4-35.0) 12/16/17 04:29 Reactive Lymphs % (Man) 0 % 12/16/17 04:29 Monocytes % (Manual) 11.0 % (0.0-7.3) H 12/16/17 04:29 Eosinophils % (Manual) 0 % (0.0-4.3) 12/16/17 04:29 Basophils % (Manual) 0 % (0.0-1.8) 12/16/17 04:29 Metamyelocytes % 0 % 12/16/17 04:29 Myelocytes % 0 % 12/16/17 04:29 Promyelocytes % 0 % 12/16/17 04:29 Blast Cells % 0 % 12/16/17 04:29 Nucleated RBC % Not Reportable 12/16/17 04:29 Seg Neutrophils # 8.7 K/mm3 (1.8-7.7) H 12/17/17 08:56 Seg Neutrophils # Man 17.9 K/mm3 (1.8-7.7) H 12/16/17 04:29 Band Neutrophils # 1.0 K/mm3 12/16/17 04:29 Lymphocytes # (Manual) 3.8 K/mm3 (1.2-5.4) 12/16/17 04:29 Abs React Lymphs (Man) 0.0 K/mm3 12/16/17 04:29 Monocytes # (Manual) 2.8 K/mm3 (0.0-0.8) H 12/16/17 04:29 Eosinophils # (Manual) 0.0 K/mm3 (0.0-0.4) 12/16/17 04:29 Basophils # (Manual) 0.0 K/mm3 (0.0-0.1) 12/16/17 04:29 Metamyelocytes # 0.0 K/mm3 12/16/17 04:29 Myelocytes # 0.0 K/mm3 12/16/17 04:29 Promyelocytes # 0.0 K/mm3 12/16/17 04:29 Blast Cells # 0.0 K/mm3 12/16/17 04:29 WBC Morphology Not Reportable 12/16/17 04:29 Hypersegmented Neuts Not Reportable 12/16/17 04:29 Hyposegmented Neuts Not Reportable 12/16/17 04:29 Hypogranular Neuts Not Reportable 12/16/17 04:29 Smudge Cells Not Reportable 12/16/17 04:29 Toxic Granulation Not Reportable 12/16/17 04:29 Toxic Vacuolation Not Reportable 12/16/17 04:29 Dohle Bodies Not Reportable 12/16/17 04:29 Pelger-Huet Anomaly Not Reportable 12/16/17 04:29 Eliezer Rods Not Reportable 12/16/17 04:29 Platelet Estimate Consistent w auto 12/16/17 04:29 Clumped Platelets Not Reportable 12/16/17 04:29 Plt Clumps, EDTA Not Reportable 12/16/17 04:29 Large Platelets Not Reportable 12/16/17 04:29 Giant Platelets Not Reportable 12/16/17 04:29 Platelet Satelliting Not Reportable 12/16/17 04:29 Plt Morphology Comment Not Reportable 12/16/17 04:29 RBC Morphology Not Reportable 12/16/17 04:29 Dimorphic RBCs Not Reportable 12/16/17 04:29 Polychromasia Not Reportable 12/16/17 04:29 Hypochromasia Not Reportable 12/16/17 04:29 Poikilocytosis Not Reportable 12/16/17 04:29 Anisocytosis 1+ 12/16/17 04:29 Microcytosis Not Reportable 12/16/17 04:29 Macrocytosis Not Reportable 12/16/17 04:29 Spherocytes Not Reportable 12/16/17 04:29 Pappenheimer Bodies Not Reportable 12/16/17 04:29 Sickle Cells Not Reportable 12/16/17 04:29 Target Cells Not Reportable 12/16/17 04:29 Tear Drop Cells Not Reportable 12/16/17 04:29 Ovalocytes Not Reportable 12/16/17 04:29 Helmet Cells Not Reportable 12/16/17 04:29 Bernal-[place] Bodies Not Reportable 12/16/17 04:29 Gipsy Rings Not Reportable 12/16/17 04:29 Sebas Cells Not Reportable 12/16/17 04:29 Bite Cells Not Reportable 12/16/17 04:29 Crenated Cell Not Reportable 12/16/17 04:29 Elliptocytes Not Reportable 12/16/17 04:29 Acanthocytes (Spur) Not Reportable 12/16/17 04:29 Rouleaux Not Reportable 12/16/17 04:29 Hemoglobin C Crystals Not Reportable 12/16/17 04:29 Schistocytes Not Reportable 12/16/17 04:29 Malaria parasites Not Reportable 12/16/17 04:29 Josias Bodies Not Reportable 12/16/17 04:29 Hem Pathologist Commnt No 12/16/17 04:29 VBG pH 7.206 (7.320-7.420) L 12/15/17 17:27 Sodium 142 mmol/L (137-145) 12/18/17 13:33 Potassium 3.9 mmol/L (3.6-5.0) 12/18/17 13:33 Chloride 106.6 mmol/L (98-107) 12/18/17 13:33 Carbon Dioxide 21 mmol/L (22-30) L 12/18/17 13:33 Anion Gap 18 mmol/L 12/18/17 13:33 BUN 13 mg/dL (9-20) 12/18/17 13:33 Creatinine 1.3 mg/dL (0.8-1.5) 12/18/17 13:33 Estimated GFR > 60 ml/min 12/18/17 13:33 BUN/Creatinine Ratio 10 % 12/18/17 13:33 Glucose 197 mg/dL (75-100) H 12/18/17 13:33 POC Glucose 152 (70-105) H 12/18/17 12:26 Hemoglobin A1c 10.6 % (4-6) H 12/15/17 17:27 Lactic Acid 1.70 mmol/L (0.7-2.0) 12/16/17 13:13 Calcium 8.6 mg/dL (8.4-10.2) 12/18/17 13:33 Phosphorus 1.50 mg/dL (2.5-4.5) L 12/17/17 20:07 Magnesium 2.10 mg/dL (1.7-2.3) 12/17/17 20:07 Total Bilirubin 0.70 mg/dL (0.1-1.2) 12/17/17 17:12 AST 18 units/L (5-40) 12/17/17 17:12 ALT 13 units/L (7-56) 12/17/17 17:12 Alkaline Phosphatase 97 units/L (35-129) 12/17/17 17:12 Total Creatine Kinase 113 units/L (55-170) 12/16/17 13:13 CK-MB (CK-2) 2.7 ng/mL (0.0-4.0) 12/16/17 13:13 CK-MB (CK-2) Rel Index 2.3 (0-4) 12/16/17 13:13 Troponin T < 0.010 ng/mL (0.00-0.029) 12/16/17 17:30 C-Reactive Protein 10.00 mg/dL (0.00-1.30) H 12/16/17 13:13 Total Protein 6.6 g/dL (6.3-8.2) 12/17/17 17:12 Albumin 3.4 g/dL (3.9-5) L 12/17/17 17:12 Albumin/Globulin Ratio 1.1 % 12/17/17 17:12 Triglycerides 230 mg/dL (2-149) H 12/15/17 17:27 Cholesterol 139 mg/dL (50-199) 12/15/17 17:27 LDL Cholesterol Direct 58 mg/dL (50-130) 12/15/17 17:27 HDL Cholesterol 35 mg/dL (40-59) L 12/15/17 17:27 Cholesterol/HDL Ratio 3.97 % 12/15/17 17:27 Urine Color Straw (Yellow) 12/15/17 18:57 Urine Turbidity Clear (Clear) 12/15/17 18:57 Urine pH 5.0 (5.0-7.0) 12/15/17 18:57 Ur Specific [place] 1.018 (1.003-1.030) 12/15/17 18:57 Urine Protein <15 mg/dl mg/dL (Negative) 12/15/17 18:57 Urine Glucose (UA) >=500 mg/dL (Negative) 12/15/17 18:57 Urine Ketones 20 mg/dL (Negative) 12/15/17 18:57 Urine Blood Sm (Negative) 12/15/17 18:57 Urine Nitrite Neg (Negative) 12/15/17 18:57 Urine Bilirubin Neg (Negative) 12/15/17 18:57 Urine Urobilinogen < 2.0 mg/dL (<2.0) 12/15/17 18:57 Ur Leukocyte Esterase Neg (Negative) 12/15/17 18:57 Urine WBC (Auto) 2.0 /HPF (0.0-6.0) 12/15/17 18:57 Urine RBC (Auto) 1.0 /HPF (0.0-6.0) 12/15/17 18:57 Urine Mucus Few /HPF 12/15/17 18:57 Urine Creatinine 78.9 mg/dL (0.1-20.0) H 12/16/17 05:30 Urine Microalbumin 9.5 mg/dL (0.1-34.0) 12/16/17 05:30 Microalb/Creat Ratio 120.4 ug/mg 12/16/17 05:30
[2017-12-18] MEDS: FLOMAX PO SCH (16:23)
[2017-12-18] MEDS: HumuLIN R SUB-Q SCH ×2 (17:11→22:48)
[2017-12-18 18:35] LABS: BUN/Creatinine Ratio 9; Blood Urea Nitrogen 12 mg/dL (9-20); Calcium 8.9 mg/dL (8.4-10.2); Hemolysis Index 32
[2017-12-19] MEDS: HumuLIN R SUB-Q SCH ×2 (09:53→13:49)
[2017-12-19] MEDS: HEPARIN SUB-Q SCH (10:02)
[2017-12-19] MEDS: FLOMAX PO SCH (10:03)
[2017-12-19] MEDS: COZAAR PO SCH (10:03)
[2017-12-19] MEDS: TRICOR PO SCH (10:06)
[2017-12-19] MEDS: DELZICOL PO SCH ×2 (10:06→13:50)
--- NOTE | 2017-12-19 11:51 | Discharge Summary ---
Providers - Providers Date of Admission: 12/15/17 18:16 Date of discharge: 12/19/17 Attending physician: NICKY ROMANO 12/15/17 19:54 Consult to Physician [CONS] Routine Consulting Provider: TAYE HINTON Reason For Exam: dka Place consult to:: Hu Notified:: yes 12/17/17 19:49 Consult to Dietitian/Nutrition [CONS] Routine Physician Instructions: Reason For Exam: DKA Reason for Consult: Nutrition Recommendations Primary care physician: INSERT OPERATOR Hospitalization Condition: Stable Hospital course: Patient is a 67-year-old -[place] man with history of IDDM on Novolog who presented with hyperglycemia Recurrent DKA BRIGHT Encephalopathy improving Colitis SIRS secondary to DKA Hyperkalemia Hypertension Acute Gastroenteritis-Improve Metabolic Acidosis BPH Leukocytosis possibly reactive Plan START DIET gap closed Continue losartan as initiated Continue PPI Continue insulin drip and transitioned to long-acting insulin once anion gap has closed We will resume 70/30 daily Humalog mix this is what is approved DVT/GI porphy can transfer out of ICU once gap is closed Disposition: [id number]-01 TO HOME OR SELFCARE Time spent for discharge: 36 minutes Core Measure Documentation - Palliative Care Palliative Care/ Comfort Measures: Not Applicable - Core Measures Any of the following diagnoses?: none - VTE Discharge Requirements Deep Vein Thrombosis/Pulmonary Embolism Present on Admission: No Has pt received <5 days of overlap therapy or INR<2.0: No Anticoagulant overlap therapy prescribed at discharge: No Contraindication No Overlap Therapy order at DC: Not Indicated Exam - Physical Exam Narrative exam: GEN: WDWN, NAD, AWAKE, ALERT, ORIENTATED x 3 HEENT: NCAT, EOMI, PERRL, OP Clear NECK: supple, no adenopathy, no thyromegaly, no JVD CVS/HEART: RRR, NORMAL S1S2, pulses present bilaterally CHEST/LUNGS: CTA B, Symmetrical chest expansion, good air entry bilaterally GI/Abdomen: soft, NTND, good bowel sounds, no guarding or rebound /Bladder: no suprapubic tenderness, no CVA or paraspinal tenderness EXT/Skin: no c/c/e, no obvious rash MSK: FROM x 4 Neuro: CN 2-12 grossly intact, no new focal deficits Psych: calm - Constitutional Vitals: Temp Pulse Resp BP Pulse Ox 98.5 F 90 18 127/72 94 12/19/17 07:23 12/19/17 10:03 12/19/17 07:23 12/19/17 10:03 12/19/17 04:17 Plan Activity: fall precautions, other (no strenous activity until cleared by PCP) Special Instructions: record blood sugar diary (three times a day with meals) Follow up with: PRIMARY CARE,MD [Primary Care Provider] - 7 Days Prescriptions: Insulin NPH/Regular [NovoLIN 70/30] 50 unit SUB-Q BIDDIAB #1 mo Insulin Regular, Human [HumuLIN R] 1 dose SUB-Q ACHS #100 units Losartan [Cozaar] 50 mg PO QDAY #30 tablet Tamsulosin [Flomax] 0.4 mg PO QDAY #30 capsule
--- NOTE | 2017-12-19 12:33 | Progress Note ---
Assessment and Plan Recurrent admissions for DKA h/o Medical non-compliance BRIGHT Encephalopathy improving Colitis SIRS secondary to DKA Hyperkalemia Hypertension Acute Gastroenteritis-Improved Metabolic Acidosis BPH Leukocytosis possibly reactive - continue glycemic control withh SSI and long acting insulin - de-escalate AB's - azotemia improved - VTE prophylaxis - Replace and treat electrolyte abnormalities as indicated - Diabetic education and counselling - Need for adherence to medical therapies emphasized and potential of from non-adherence re-emphasized ..d/c planning per attending Subjective Date of service: 12/19/17 Principal diagnosis: Diabetic ketoacidosis Interval history: Patient seen today for: DKA; Acute Encephalopathy; Colitis Seen and examined at bedside; 24-hour events reviewed; nursing and respiratory care staff consulted; no adverse overnight events reported to me; doing better; no N/V/F/C; tolerating oral meals with improved glycemic control Objective Vital Signs - 12hr 12/19/17 12/19/17 12/19/17 04:17 07:23 10:03 Temperature 98.6 F 98.5 F Pulse Rate 107 H 90 Respiratory 18 18 Rate Blood Pressure 137/86 129/79 127/72 O2 Sat by Pulse 94 Oximetry Constitutional: no acute distress, alert Eyes: non-icteric ENT: oropharynx moist Neck: supple, no lymphadenopathy, no JVD Effort: normal Ascultation: Bilateral: clear, diminished breath sounds Percussion: Bilateral: not dull Cardiovascular: regular rate and rhythm Gastrointestinal: normoactive bowel sounds, soft, non-tender, non-distended Integumentary: normal Extremities: no cyanosis, no edema, pulses normal, no ischemia or petechiae Neurologic: normal mental status, non-focal exam, pupils equal and round, motor strength normal and Psychiatric: mood appropriate, affect normal CBC and BMP: 12/18/17 04:25 12/18/17 18:04 Abnormal lab findings: Abnormal Labs 12/15/17 12/15/17 12/15/17 17:27 17:27 17:27 WBC 24.9 H RBC 5.51 H Hgb 16.0 H Hct 50.3 H MCHC Early % (Auto) Early # Seg Neutrophils % Seg Neuts % (Manual) 85.0 H Lymphocytes % (Manual) 5.0 L Monocytes % (Manual) Seg Neutrophils # Seg Neutrophils # Man 21.2 H Monocytes # (Manual) 1.5 H VBG pH 7.206 L Sodium 126 L Potassium 5.5 H Chloride 78.2 L Carbon Dioxide 10 L BUN 39 H Creatinine 2.2 H Glucose 840 H* POC Glucose Hemoglobin A1c Phosphorus Magnesium C-Reactive Protein Albumin Triglycerides HDL Cholesterol Urine Creatinine 12/15/17 12/15/17 12/15/17 17:27 17:27 17:27 WBC RBC Hgb Hct MCHC Early % (Auto) Early # Seg Neutrophils % Seg Neuts % (Manual) Lymphocytes % (Manual) Monocytes % (Manual) Seg Neutrophils # Seg Neutrophils # Man Monocytes # (Manual) VBG pH Sodium Potassium Chloride Carbon Dioxide BUN Creatinine Glucose POC Glucose Hemoglobin A1c 10.6 H Phosphorus 7.60 H Magnesium 2.60 H C-Reactive Protein Albumin Triglycerides 230 H HDL Cholesterol 35 L Urine Creatinine 12/15/17 12/15/17 12/15/17 17:30 18:16 19:22 WBC RBC Hgb Hct MCHC Early % (Auto) Early # Seg Neutrophils % Seg Neuts % (Manual) Lymphocytes % (Manual) Monocytes % (Manual) Seg Neutrophils # Seg Neutrophils # Man Monocytes # (Manual) VBG pH Sodium Potassium Chloride Carbon Dioxide BUN Creatinine Glucose 818 H* POC Glucose 382 H > 500 H Hemoglobin A1c Phosphorus Magnesium C-Reactive Protein Albumin Triglycerides HDL Cholesterol Urine Creatinine 12/15/17 12/15/17 12/15/17 20:11 20:11 23:09 WBC RBC Hgb Hct MCHC Early % (Auto) Early # Seg Neutrophils % Seg Neuts % (Manual) Lymphocytes % (Manual) Monocytes % (Manual) Seg Neutrophils # Seg Neutrophils # Man Monocytes # (Manual) VBG pH Sodium 134 L D Potassium Chloride 88.4 L Carbon Dioxide 11 L BUN 36 H Creatinine 2.1 H Glucose 578 H* POC Glucose > 500 H Hemoglobin A1c Phosphorus Magnesium 2.50 H C-Reactive Protein Albumin Triglycerides HDL Cholesterol Urine Creatinine 12/16/17 12/16/17 12/16/17 00:16 00:20 01:46 WBC RBC Hgb Hct MCHC Early % (Auto) Early # Seg Neutrophils % Seg Neuts % (Manual) Lymphocytes % (Manual) Monocytes % (Manual) Seg Neutrophils # Seg Neutrophils # Man Monocytes # (Manual) VBG pH Sodium 135 L Potassium 6.4 H* D Chloride 90.8 L Carbon Dioxide 8 L* 12 L BUN 34 H 32 H Creatinine 1.8 H 1.6 H Glucose 499 H 355 H POC Glucose 484 H Hemoglobin A1c Phosphorus Magnesium C-Reactive Protein Albumin Triglycerides HDL Cholesterol Urine Creatinine 12/16/17 12/16/17 12/16/17 01:56 02:22 04:05 WBC RBC Hgb Hct MCHC Early % (Auto) Early # Seg Neutrophils % Seg Neuts % (Manual) Lymphocytes % (Manual) Monocytes % (Manual) Seg Neutrophils # Seg Neutrophils # Man Monocytes # (Manual) VBG pH Sodium Potassium Chloride Carbon Dioxide BUN Creatinine Glucose POC Glucose 346 H 372 H 237 H Hemoglobin A1c Phosphorus Magnesium C-Reactive Protein Albumin Triglycerides HDL Cholesterol Urine Creatinine 12/16/17 12/16/17 12/16/17 04:29 04:29 05:21 WBC 25.5 H RBC 5.26 H Hgb Hct 45.7 H MCHC Early % (Auto) Early # Seg Neutrophils % Seg Neuts % (Manual) Lymphocytes % (Manual) Monocytes % (Manual) 11.0 H Seg Neutrophils # Seg Neutrophils # Man 17.9 H Monocytes # (Manual) 2.8 H VBG pH Sodium Potassium Chloride Carbon Dioxide 17 L BUN 29 H Creatinine 1.6 H Glucose 219 H POC Glucose 213 H Hemoglobin A1c Phosphorus Magnesium C-Reactive Protein Albumin Triglycerides HDL Cholesterol Urine Creatinine 12/16/17 12/16/17 12/16/17 05:30 05:56 06:54 WBC RBC Hgb Hct MCHC Early % (Auto) Early # Seg Neutrophils % Seg Neuts % (Manual) Lymphocytes % (Manual) Monocytes % (Manual) Seg Neutrophils # Seg Neutrophils # Man Monocytes # (Manual) VBG pH Sodium Potassium Chloride Carbon Dioxide BUN Creatinine Glucose POC Glucose 238 H 236 H Hemoglobin A1c Phosphorus Magnesium C-Reactive Protein Albumin Triglycerides HDL Cholesterol Urine Creatinine 78.9 H 12/16/17 12/16/17 12/16/17 08:38 09:45 10:57 WBC RBC Hgb Hct MCHC Early % (Auto) Early # Seg Neutrophils % Seg Neuts % (Manual) Lymphocytes % (Manual) Monocytes % (Manual) Seg Neutrophils # Seg Neutrophils # Man Monocytes # (Manual) VBG pH Sodium Potassium Chloride Carbon Dioxide BUN Creatinine Glucose POC Glucose 224 H 193 H 194 H Hemoglobin A1c Phosphorus Magnesium C-Reactive Protein Albumin Triglycerides HDL Cholesterol Urine Creatinine 12/16/17 12/16/17 12/16/17 11:38 12:03 13:12 WBC RBC Hgb Hct MCHC Early % (Auto) Early # Seg Neutrophils % Seg Neuts % (Manual) Lymphocytes % (Manual) Monocytes % (Manual) Seg Neutrophils # Seg Neutrophils # Man Monocytes # (Manual) VBG pH Sodium Potassium Chloride Carbon Dioxide BUN Creatinine Glucose POC Glucose 200 H 208 H 196 H Hemoglobin A1c Phosphorus Magnesium C-Reactive Protein Albumin Triglycerides HDL Cholesterol Urine Creatinine 12/16/17 12/16/17 12/16/17 13:13 13:13 14:25 WBC RBC Hgb Hct MCHC Early % (Auto) Early # Seg Neutrophils % Seg Neuts % (Manual) Lymphocytes % (Manual) Monocytes % (Manual) Seg Neutrophils # Seg Neutrophils # Man Monocytes # (Manual) VBG pH Sodium 147 H Potassium Chloride 110.1 H Carbon Dioxide 20 L BUN 23 H Creatinine Glucose 222 H POC Glucose 204 H Hemoglobin A1c Phosphorus Magnesium C-Reactive Protein 10.00 H Albumin Triglycerides HDL Cholesterol Urine Creatinine 12/16/17 12/16/17 12/16/17 15:21 16:27 17:30 WBC RBC Hgb Hct MCHC Early % (Auto) Early # Seg Neutrophils % Seg Neuts % (Manual) Lymphocytes % (Manual) Monocytes % (Manual) Seg Neutrophils # Seg Neutrophils # Man Monocytes # (Manual) VBG pH Sodium Potassium Chloride Carbon Dioxide 20 L BUN 22 H Creatinine Glucose 240 H POC Glucose 227 H 226 H Hemoglobin A1c Phosphorus Magnesium C-Reactive Protein Albumin Triglycerides HDL Cholesterol Urine Creatinine 12/16/17 12/16/17 12/16/17 17:33 18:32 19:58 WBC RBC Hgb Hct MCHC Early % (Auto) Early # Seg Neutrophils % Seg Neuts % (Manual) Lymphocytes % (Manual) Monocytes % (Manual) Seg Neutrophils # Seg Neutrophils # Man Monocytes # (Manual) VBG pH Sodium Potassium Chloride Carbon Dioxide BUN Creatinine Glucose POC Glucose 218 H 228 H 214 H Hemoglobin A1c Phosphorus Magnesium C-Reactive Protein Albumin Triglycerides HDL Cholesterol Urine Creatinine 12/16/17 12/16/17 12/16/17 21:22 22:08 23:15 WBC RBC Hgb Hct MCHC Early % (Auto) Early # Seg Neutrophils % Seg Neuts % (Manual) Lymphocytes % (Manual) Monocytes % (Manual) Seg Neutrophils # Seg Neutrophils # Man Monocytes # (Manual) VBG pH Sodium Potassium Chloride Carbon Dioxide BUN Creatinine Glucose POC Glucose 194 H 153 H 165 H Hemoglobin A1c Phosphorus Magnesium C-Reactive Protein Albumin Triglycerides HDL Cholesterol Urine Creatinine 12/17/17 12/17/17 12/17/17 00:08 01:08 02:05 WBC RBC Hgb Hct MCHC Early % (Auto) Early # Seg Neutrophils % Seg Neuts % (Manual) Lymphocytes % (Manual) Monocytes % (Manual) Seg Neutrophils # Seg Neutrophils # Man Monocytes # (Manual) VBG pH Sodium Potassium Chloride Carbon Dioxide BUN Creatinine Glucose POC Glucose 170 H 184 H 198 H Hemoglobin A1c Phosphorus Magnesium C-Reactive Protein Albumin Triglycerides HDL Cholesterol Urine Creatinine 12/17/17 12/17/17 12/17/17 03:13 04:06 05:03 WBC RBC Hgb Hct MCHC Early % (Auto) Early # Seg Neutrophils % Seg Neuts % (Manual) Lymphocytes % (Manual) Monocytes % (Manual) Seg Neutrophils # Seg Neutrophils # Man Monocytes # (Manual) VBG pH Sodium Potassium Chloride Carbon Dioxide BUN Creatinine Glucose POC Glucose 189 H 165 H 128 H Hemoglobin A1c Phosphorus Magnesium C-Reactive Protein Albumin Triglycerides HDL Cholesterol Urine Creatinine 12/17/17 12/17/17 12/17/17 06:02 07:15 08:08 WBC RBC Hgb Hct MCHC Early % (Auto) Early # Seg Neutrophils % Seg Neuts % (Manual) Lymphocytes % (Manual) Monocytes % (Manual) Seg Neutrophils # Seg Neutrophils # Man Monocytes # (Manual) VBG pH Sodium Potassium Chloride Carbon Dioxide BUN Creatinine Glucose POC Glucose 193 H 200 H 182 H Hemoglobin A1c Phosphorus Magnesium C-Reactive Protein Albumin Triglycerides HDL Cholesterol Urine Creatinine 12/17/17 12/17/17 12/17/17 08:56 08:56 09:07 WBC 12.4 H RBC Hgb Hct MCHC Early % (Auto) 10.9 H Early # 1.3 H Seg Neutrophils % 70.7 H Seg Neuts % (Manual) Lymphocytes % (Manual) Monocytes % (Manual) Seg Neutrophils # 8.7 H Seg Neutrophils # Man Monocytes # (Manual) VBG pH Sodium Potassium Chloride 108.7 H Carbon Dioxide 20 L BUN Creatinine Glucose 183 H POC Glucose 193 H Hemoglobin A1c Phosphorus Magnesium C-Reactive Protein Albumin Triglycerides HDL Cholesterol Urine Creatinine 12/17/17 12/17/17 12/17/17 11:33 15:32 17:12 WBC RBC Hgb Hct MCHC Early % (Auto) Early # Seg Neutrophils % Seg Neuts % (Manual) Lymphocytes % (Manual) Monocytes % (Manual) Seg Neutrophils # Seg Neutrophils # Man Monocytes # (Manual) VBG pH Sodium Potassium Chloride Carbon Dioxide 19 L BUN Creatinine 1.6 H Glucose 344 H POC Glucose 209 H 374 H Hemoglobin A1c Phosphorus Magnesium C-Reactive Protein Albumin 3.4 L Triglycerides HDL Cholesterol Urine Creatinine 12/17/17 12/17/17 12/17/17 19:34 20:07 21:03 WBC RBC Hgb Hct MCHC Early % (Auto) Early # Seg Neutrophils % Seg Neuts % (Manual) Lymphocytes % (Manual) Monocytes % (Manual) Seg Neutrophils # Seg Neutrophils # Man Monocytes # (Manual) VBG pH Sodium Potassium Chloride Carbon Dioxide BUN Creatinine 1.6 H Glucose 273 H POC Glucose 307 H 249 H Hemoglobin A1c Phosphorus 1.50 L Magnesium C-Reactive Protein Albumin Triglycerides HDL Cholesterol Urine Creatinine 12/17/17 12/17/17 12/18/17 22:09 23:19 00:25 WBC RBC Hgb Hct MCHC Early % (Auto) Early # Seg Neutrophils % Seg Neuts % (Manual) Lymphocytes % (Manual) Monocytes % (Manual) Seg Neutrophils # Seg Neutrophils # Man Monocytes # (Manual) VBG pH Sodium Potassium Chloride Carbon Dioxide BUN Creatinine Glucose POC Glucose 281 H 227 H 227 H Hemoglobin A1c Phosphorus Magnesium C-Reactive Protein Albumin Triglycerides HDL Cholesterol Urine Creatinine 12/18/17 12/18/17 12/18/17 00:39 01:09 03:10 WBC RBC Hgb Hct MCHC Early % (Auto) Early # Seg Neutrophils % Seg Neuts % (Manual) Lymphocytes % (Manual) Monocytes % (Manual) Seg Neutrophils # Seg Neutrophils # Man Monocytes # (Manual) VBG pH Sodium Potassium Chloride Carbon Dioxide BUN Creatinine Glucose 198 H POC Glucose 196 H 138 H Hemoglobin A1c Phosphorus Magnesium C-Reactive Protein Albumin Triglycerides HDL Cholesterol Urine Creatinine 12/18/17 12/18/17 12/18/17 04:21 04:25 04:25 WBC RBC Hgb Hct MCHC 35 H Early % (Auto) Early # Seg Neutrophils % Seg Neuts % (Manual) Lymphocytes % (Manual) Monocytes % (Manual) Seg Neutrophils # Seg Neutrophils # Man Monocytes # (Manual) VBG pH Sodium Potassium Chloride 108.8 H Carbon Dioxide BUN Creatinine Glucose 128 H POC Glucose 115 H Hemoglobin A1c Phosphorus Magnesium C-Reactive Protein Albumin Triglycerides HDL Cholesterol Urine Creatinine 12/18/17 12/18/17 12/18/17 04:57 04:58 08:02 WBC RBC Hgb Hct MCHC Early % (Auto) Early # Seg Neutrophils % Seg Neuts % (Manual) Lymphocytes % (Manual) Monocytes % (Manual) Seg Neutrophils # Seg Neutrophils # Man Monocytes # (Manual) VBG pH Sodium Potassium Chloride Carbon Dioxide BUN Creatinine Glucose POC Glucose 135 H 155 H 198 H Hemoglobin A1c Phosphorus Magnesium C-Reactive Protein Albumin Triglycerides HDL Cholesterol Urine Creatinine 12/18/17 12/18/17 12/18/17 09:01 10:38 12:26 WBC RBC Hgb Hct MCHC Early % (Auto) Early # Seg Neutrophils % Seg Neuts % (Manual) Lymphocytes % (Manual) Monocytes % (Manual) Seg Neutrophils # Seg Neutrophils # Man Monocytes # (Manual) VBG pH Sodium Potassium Chloride Carbon Dioxide BUN Creatinine Glucose POC Glucose 172 H 121 H 152 H Hemoglobin A1c Phosphorus Magnesium C-Reactive Protein Albumin Triglycerides HDL Cholesterol Urine Creatinine 12/18/17 12/18/17 12/18/17 13:33 16:56 18:04 WBC RBC Hgb Hct MCHC Early % (Auto) Early # Seg Neutrophils % Seg Neuts % (Manual) Lymphocytes % (Manual) Monocytes % (Manual) Seg Neutrophils # Seg Neutrophils # Man Monocytes # (Manual) VBG pH Sodium Potassium Chloride Carbon Dioxide 21 L 20 L BUN Creatinine Glucose 197 H 256 H POC Glucose 267 H Hemoglobin A1c Phosphorus Magnesium C-Reactive Protein Albumin Triglycerides HDL Cholesterol Urine Creatinine 12/18/17 12/19/17 22:00 12:03 WBC RBC Hgb Hct MCHC Early % (Auto) Early # Seg Neutrophils % Seg Neuts % (Manual) Lymphocytes % (Manual) Monocytes % (Manual) Seg Neutrophils # Seg Neutrophils # Man Monocytes # (Manual) VBG pH Sodium Potassium Chloride Carbon Dioxide BUN Creatinine Glucose POC Glucose 187 H 186 H Hemoglobin A1c Phosphorus Magnesium C-Reactive Protein Albumin Triglycerides HDL Cholesterol Urine Creatinine Allied health notes reviewed: nursing
[2017-12-19] MEDS ORDERED: Fluarix Quad 2017-2018(36 MOS+ IM ONE (15:04)
[2017-12-19 15:45] VITALS: BP 119/67
== END 2017-12-19 17:25 | disposition home health service (06) | DRG 637 ==
LOC: ED 17:17 → CC1 18:16 → 2B-ACE 12-18 18:52
PROVIDERS: ADMIT Internal Medicine; ATTEND Internal Medicine
PROC: 3E0234Z Introduction of Serum, Toxoid and Vaccine into Muscle, Percutaneous Approach (ICD-10-PCS; principal; 2017-12-17)
DX: E11.10 Type 2 diabetes mellitus with ketoacidosis without coma (principal); G93.40 Encephalopathy, unspecified; N17.9 Acute kidney failure, unspecified; R65.10 Systemic inflammatory response syndrome (SIRS) of non-infectious origin without acute organ dysfunction; E87.1 Hypo-osmolality and hyponatremia; K51.90 Ulcerative colitis, unspecified, without complications; E87.5 Hyperkalemia; I10 Essential (primary) hypertension; N40.0 Benign prostatic hyperplasia without lower urinary tract symptoms; D72.828 Other elevated white blood cell count; K21.9 Gastro-esophageal reflux disease without esophagitis; M19.90 Unspecified osteoarthritis, unspecified site; N20.0 Calculus of kidney; Z87.442 Personal history of urinary calculi; Z90.49 Acquired absence of other specified parts of digestive tract; Z79.899 Other long term (current) drug therapy; Z79.4 Long term (current) use of insulin; Z23 Encounter for immunization
CPT/HCPCS: 36415; 71045; 80048; 80053; 80061; 81001; 82043; 82140; 82550; 82553; 82805; 82947; 82962; 83036; 83735; 84100; 84484; 85007; 85025; 85027; 86140; 90686; 93005; 93010; 96374; J1644; J1815; J7030; J7050

== ENCOUNTER 2018-11-28 16:56 | Inpatient (IN) | payer MEDICARE ==
--- NOTE | 2018-11-28 17:14 | Emergency Department Report ---
Addendum entered and electronically signed by GHULAM MARIE PA 11/28/18 17:20: Blank Doc - Documentation Documentation: blood sugar POC over 500 plan is to check bmp. and obtain ph with tx likely insulin and fluids. Original Note: Blank Doc - Documentation Documentation: 68 y/o non compliant male with pmh of DM and HTN presnets to ED c/o of dizziness, fatigue, decrease appetite and weigh loss. no headache or chest pain Plan labs and ekg
[2018-11-28] MEDS ORDERED: NACL 0.9% 1000 ML 2,000 ML IV ONE (17:52)
--- NOTE | 2018-11-28 17:53 | Emergency Department Report ---
ED General Adult HPI - General Chief complaint: Dizziness Stated complaint: OUT OF MEDICATION/DIABETE Time Seen by Provider: 11/28/18 17:11 Source: patient, family, RN notes reviewed, old records reviewed Mode of arrival: Ambulatory Limitations: No Limitations, Other (patient is a poor historian) - History of Present Illness Initial comments: This is a 68-year-old gentleman with history of diabetes, reportedly noncompliant with medications as per his spouse, who presents to the emergency room with his spouse for weakness, thirst, malaise, fatigue. Symptoms are painless, constant, do not radiate anywhere, it did not appear to have exacerbating or relieving factors. -: Gradual, days(s), week(s) Consistency: constant Improves with: none Worsens with: none Associated Symptoms: loss of appetite, malaise, weakness. denies: chest pain, cough, diaphoresis, fever/chills, headaches, nausea/vomiting, rash, seizure - Related Data Home Medications Medication Instructions Recorded Confirmed Last Taken Fenofibrate [Lofibra] 160 mg PO QDAY 01/13/14 12/15/17 10/16/14 07:00 Previous Rx's Medication Instructions Recorded Last Taken Type Insulin Lispro Protamin/Lispro 50 units SQ BID #1 pen 12/19/17 Unknown Rx [HumaLOG Mix 75-25 Kwikpen] Insulin Lispro [Humalog Kwikpen 1 units SQ AC PRN #1 pen 12/19/17 Unknown Rx 200 UNITS/ML] Losartan [Cozaar] 50 mg PO QDAY #30 tablet 12/19/17 Unknown Rx Mesalamine [Delzicol] 800 mg PO TID #90 cap 12/19/17 Unknown Rx Omeprazole 20 mg PO DAILY #30 12/19/17 Unknown Rx Tamsulosin [Flomax] 0.4 mg PO QDAY #30 capsule 12/19/17 Unknown Rx Allergies Allergy/AdvReac Type Severity Reaction Status Date / Time No Known Allergies Allergy Verified 10/16/14 12:48 ED Review of Systems ROS: Stated complaint: OUT OF MEDICATION/DIABETE Other details as noted in HPI Constitutional: malaise, weakness Eyes: denies: eye discharge ENT: denies: epistaxis, congestion Respiratory: shortness of breath Cardiovascular: denies: chest pain Gastrointestinal: denies: vomiting Genitourinary: denies: dysuria Musculoskeletal: denies: back pain Skin: denies: lesions Neurological: weakness Psychiatric: anxiety ED Past Medical Hx - Past Medical History Hx Hypertension: Yes Hx Diabetes: Yes (IDDM 2011) Hx GERD: Yes Hx Renal Disease: Yes (nephrolithiasis) Hx Sickle Cell Disease: No (SICKLE TRAIT) Hx Arthritis: Yes (knees and hands) Hx Kidney Stones: Yes Hx Dementia: Yes Additional medical history: ulcerative colitis, - Surgical History Hx Cholecystectomy: Yes - Social History Smoking Status: Never Smoker Substance Use Type: None - Medications Home Medications: Home Medications Medication Instructions Recorded Confirmed Last Taken Type Fenofibrate [Lofibra] 160 mg PO QDAY 01/13/14 12/15/17 10/16/14 07:00 History Insulin Lispro Protamin/Lispro 50 units SQ BID #1 pen 12/19/17 Unknown Rx [HumaLOG Mix 75-25 Kwikpen] Insulin Lispro [Humalog Kwikpen 1 units SQ AC PRN #1 pen 12/19/17 Unknown Rx 200 UNITS/ML] Losartan [Cozaar] 50 mg PO QDAY #30 tablet 12/19/17 Unknown Rx Mesalamine [Delzicol] 800 mg PO TID #90 cap 12/19/17 Unknown Rx Omeprazole 20 mg PO DAILY #30 12/19/17 12/15/17 Unknown Rx Tamsulosin [Flomax] 0.4 mg PO QDAY #30 capsule 12/19/17 Unknown Rx ED Physical Exam - General Limitations: No Limitations General appearance: alert, in distress - Head Head exam: Present: atraumatic, normocephalic - Eye Eye exam: Present: normal appearance, EOMI - ENT ENT exam: Present: mucous membranes dry - Neck Neck exam: Present: normal inspection, full ROM. Absent: tenderness, meningismus - Respiratory Respiratory exam: Present: decreased breath sounds. Absent: respiratory distress - Cardiovascular Cardiovascular Exam: Present: normal rhythm, tachycardia, normal heart sounds. Absent: systolic murmur, diastolic murmur, rubs, gallop - GI/Abdominal GI/Abdominal exam: Present: soft. Absent: distended, tenderness, guarding, rebound, rigid, pulsatile mass - Rectal Rectal exam: Present: deferred - Extremities Exam Extremities exam: Present: normal inspection, full ROM, other (2+ pulses noted in the bilateral upper, lower extremities. Compartments soft. No long bony tenderness. The pelvis is stable.). Absent: pedal edema, calf tenderness - Back Exam Back exam: Present: normal inspection, full ROM. Absent: tenderness, CVA tenderness (R), paraspinal tenderness, vertebral tenderness - Neurological Exam Neurological exam: Present: alert, other (Extraocular movements intact. Tongue midline. No facial droop. Facial sensation intact to light touch in the V1, V2, V3 distribution bilaterally. 5 and 5 strength in 4 extremities.. Sensation is intact to light touch in 4 extremities.). Absent: motor sensory deficit - Psychiatric Psychiatric exam: Present: flat affect - Skin Skin exam: Present: warm, dry, intact, normal color. Absent: rash ED Course Vital Signs 11/28/18 11/28/18 11/28/18 17:35 17:52 18:00 Temperature 97.5 F L Pulse Rate 129 H 118 H 116 H Respiratory 20 23 26 H Rate Blood Pressure 144/97 141/98 O2 Sat by Pulse 98 97 Oximetry 11/28/18 11/28/18 11/28/18 18:15 18:30 18:45 Temperature Pulse Rate 117 H 116 H 117 H Respiratory 25 H 25 H 22 Rate Blood Pressure 137/98 142/99 137/98 O2 Sat by Pulse 97 Oximetry 11/28/18 11/28/18 11/28/18 19:00 19:15 19:30 Temperature Pulse Rate 116 H 115 H 116 H Respiratory 27 H 22 25 H Rate Blood Pressure 135/94 135/95 145/75 O2 Sat by Pulse 98 100 98 Oximetry 11/28/18 11/28/18 11/28/18 19:45 20:00 20:15 Temperature Pulse Rate 120 H Respiratory 18 Rate Blood Pressure 140/81 136/70 145/103 O2 Sat by Pulse 98 99 97 Oximetry 11/28/18 11/28/18 11/28/18 20:30 20:55 21:00 Temperature Pulse Rate 120 H 116 H Respiratory 27 H 26 H Rate Blood Pressure 136/98 136/98 126/91 O2 Sat by Pulse 97 98 Oximetry 11/28/18 11/28/18 11/28/18 21:15 21:31 21:45 Temperature Pulse Rate 111 H 116 H 115 H Respiratory 26 H 21 24 Rate Blood Pressure 123/87 131/87 129/83 O2 Sat by Pulse 98 97 Oximetry 11/28/18 11/28/18 11/28/18 22:01 22:15 22:30 Temperature Pulse Rate 117 H 115 H Respiratory 24 20 Rate Blood Pressure 129/83 125/83 132/85 O2 Sat by Pulse 98 96 98 Oximetry 11/28/18 11/28/18 11/28/18 22:45 23:00 23:15 Temperature Pulse Rate 117 H 121 H 117 H Respiratory 23 24 24 Rate Blood Pressure 141/89 133/91 133/91 O2 Sat by Pulse 97 96 98 Oximetry 11/28/18 11/28/18 11/29/18 23:31 23:45 00:00 Temperature Pulse Rate 125 H 120 H 119 H Respiratory 18 15 29 H Rate Blood Pressure 114/80 128/91 133/90 O2 Sat by Pulse 99 98 98 Oximetry - Reevaluation(s) Reevaluation #1: 11/28/18 19:11 Dr Carrillo accepts to the medical service ED Medical Decision Making - Lab Data Result diagrams: 11/28/18 17:54 11/28/18 23:55 Vital Signs 11/28/18 17:35 Temperature 97.5 F L Pulse Rate 129 H Respiratory 20 Rate Blood Pressure 144/97 O2 Sat by Pulse 98 Oximetry Lab Results 11/28/18 11/28/18 11/28/18 Range/Units 17:18 17:54 17:54 WBC 16.7 H (4.5-11.0) K/mm3 RBC 5.79 H (3.65-5.03) M/mm3 Hgb 17.4 H (11.8-15.2) gm/dl Hct 54.5 H (35.5-45.6) % MCV 94 (84-94) fl MCH 30 (28-32) pg MCHC 32 (32-34) % RDW 14.6 (13.2-15.2) % Plt Count 208 (140-440) K/mm3 PT (12.2-14.9) Sec. INR (0.87-1.13) VBG pH (7.320-7.420) Sodium 130 L (137-145) mmol/L Potassium 5.8 H (3.6-5.0) mmol/L Chloride 84.7 L (98-107) mmol/L Carbon Dioxide 8 L* (22-30) mmol/L Anion Gap 43 mmol/L BUN 41 H (9-20) mg/dL Creatinine 2.2 H (0.8-1.5) mg/dL Estimated GFR 36 ml/min BUN/Creatinine Ratio 19 % Glucose 821 H* (75-100) mg/dL POC Glucose > 500 H (70-105) Calcium 9.6 (8.4-10.2) mg/dL Total Bilirubin 0.90 (0.1-1.2) mg/dL AST 15 (5-40) units/L ALT 13 (7-56) units/L Alkaline Phosphatase 118 (35-129) units/L Troponin T < 0.010 (0.00-0.029) ng/mL Total Protein 8.7 H (6.3-8.2) g/dL Albumin 4.4 (3.9-5) g/dL Albumin/Globulin Ratio 1.0 % 11/28/18 11/28/18 Range/Units 17:54 18:20 WBC (4.5-11.0) K/mm3 RBC (3.65-5.03) M/mm3 Hgb (11.8-15.2) gm/dl Hct (35.5-45.6) % MCV (84-94) fl MCH (28-32) pg MCHC (32-34) % RDW (13.2-15.2) % Plt Count (140-440) K/mm3 PT 15.3 H (12.2-14.9) Sec. INR 1.14 H (0.87-1.13) VBG pH 7.108 L* (7.320-7.420) Sodium (137-145) mmol/L Potassium (3.6-5.0) mmol/L Chloride (98-107) mmol/L Carbon Dioxide (22-30) mmol/L Anion Gap mmol/L BUN (9-20) mg/dL Creatinine (0.8-1.5) mg/dL Estimated GFR ml/min BUN/Creatinine Ratio % Glucose (75-100) mg/dL POC Glucose (70-105) Calcium (8.4-10.2) mg/dL Total Bilirubin (0.1-1.2) mg/dL AST (5-40) units/L ALT (7-56) units/L Alkaline Phosphatase (35-129) units/L Troponin T (0.00-0.029) ng/mL Total Protein (6.3-8.2) g/dL Albumin (3.9-5) g/dL Albumin/Globulin Ratio % - EKG Data 11/28/18 18:57 Sinus tachycardia, 115 bpm, normal axis, QTC prolonged, , not consistent with ST elevation myocardial infarction. - Radiology Data Radiology results: report reviewed, image reviewed X-ray of the chest is negative for acute disease - Medical Decision Making Differential diagnosis, including but not limited to: Dehydration, diabetic ketoacidosis, hyperosmolar state Assessment and plan: 68-year-old gentleman with tachycardia, dry mucous membranes, generalized weakness, hyperglycemia, laboratory studies consistent with diabetic ketoacidosis, dehydration, acute renal insufficiency. Patient will be given 3 L of IV fluids, insulin bolus, sodium bicarbonate push, and he'll be started on the insulin drip. His acute renal insufficiency is most likely secondary to vasomotor nephropathy, dehydration. The aforementioned resuscitation measures should also address his hyperkalemia of 5.8. He will require placement into the intensive care unit for his endocrine and metabolic crisis. We're waiting for the Hospital physician to call back to arrange admission. Discussed with critical care physician, Dr. Castillo, who will follow in consultation, and who agrees with placement into the intensive care unit. Discussed this with patient and family, who verbalized understanding, and are amenable to admission. Tachycardia and leukocytosis are reviewed and appreciated, this is most likely secondary to dehydration, and physiologic stress from his underlying metabolic crisis. His DKA is likely secondary to medication noncompliance. Based off of the history and physical, I do not suspect systemic bacteremia, or acute infectious etiology. Therefore, I will not initiate antimicrobial therapy. Critical Care Time: Yes Critical care time in (mins) excluding proc time.: 45 Critical care attestation.: If time is entered above; I have spent that time in minutes in the direct care of this critically ill patient, excluding procedure time. ED Disposition Clinical Impression: DKA (diabetic ketoacidoses), BRIGHT (acute kidney injury) Disposition: OP ADMIT IP TO THIS HOSP Is pt being admited?: Yes Does the pt Need Aspirin: No Condition: Critical
[2018-11-28 18:12] LABS: Hematocrit 54.5 % (35.5-45.6); Hemoglobin 17.4 gm/dl (11.8-15.2); Mean Corpuscular HGB Conc 32 % (32-34); Mean Corpuscular Volume 94 fl (84-94); Platelet Count 208 K/mm3 (140-440); Red Blood Count 5.79 M/mm3 (3.65-5.03); Red Cell Distribution Width 14.6 % (13.2-15.2)
[2018-11-28 18:33] LABS: Alanine Aminotransferase 13 units/L (7-56); Albumin 4.4 g/dL (3.9-5); BUN/Creatinine Ratio 19; Blood Urea Nitrogen 41 mg/dL (9-20); Calcium 9.6 mg/dL (8.4-10.2); Hemolysis Index 17
--- NOTE | 2018-11-28 18:35 | XRay Report ---
FINAL REPORT PROCEDURE: XR CHEST ROUTINE 2V TECHNIQUE: AP and lateral views of the chest were obtained. HISTORY: Lightheadedness/Dizziness COMPARISON: No prior studies are available for comparison. FINDINGS: Heart size and pulmonary vasculature appear normal. Lungs are clear. No infiltrates masses or effusio ns are seen. No acute bone abnormalities are identified IMPRESSION: Negative exam. No acute abnormality is seen.
[2018-11-28 18:47] LABS: INR 1.14 (0.87-1.13)
[2018-11-28] MEDS ORDERED: HumuLIN R IV ONE (18:53)
[2018-11-28] MEDS ORDERED: D50W (25GM) Syringe IV PRN ×2 (18:53→19:08)
[2018-11-28] MEDS ORDERED: NACL 0.9% 1000 ML 1,000 ML IV ONE (18:53)
[2018-11-28 18:56] LABS: Total Cells Counted 100
[2018-11-28 18:57] LABS: Band Neutrophils # (Manual) 0.3 K/mm3; Basophils % (Manual) 0 % (0.0-1.8); Eosinophils % (Manual) 0 % (0.0-4.3); Large Platelets 1+; Platelet Estimate Consistent w Auto; RBC Morphology Normal
[2018-11-28] MEDS ORDERED: D5W/0.45% NACL/KCL 20 MEQ 20 MEQ/1,000 ML BAG IV SCH (19:00)
[2018-11-28] MEDS ORDERED: TYLENOL PO PRN (19:08)
[2018-11-28] MEDS ORDERED: NACL 0.9% 1000 ML IV ONE (19:08)
[2018-11-28] MEDS ORDERED: ZOFRAN IV PRN (19:08)
[2018-11-28] MEDS ORDERED: SODIUM CHLORIDE FLUSH SYRINGE 10 ML IV PRN (19:08)
--- NOTE | 2018-11-28 19:08 | History and Physical Report ---
History of Present Illness Chief complaint: He is not acting like himself History of present illness: 68 YO Male with DM, Medication and Dietary Noncompliance, GERD, OA, Dementia, Nephrolithiasis, Sickle Cell Trait, UC presents to ED for evaluation. Pt is lethargic and unable to provide history at time of exam. Pt history is provided by who is at bedside during exam and interview. As per , the patient and experienced weakness, increased thirst, fatigue, and confusion over the past 4 days with worsening symptoms over the past 1 day. Pt is currently unable to independently conduct activities of daily living. Pt transported to [facility] by his for further care and evaluation. Pt seen and evaluated in ED and found to have DKA, Encephalopathy, Sepsis, and Acidosis. Pt admitted to ICU. Pulmonary team consulted in ED. Pt initiated on Sepsis protocol, as well as DKA protocol. Past History Past Medical History: arthritis, diabetes, GERD, other (SC Trait, Dementia) Past Surgical History: cholecystectomy Social history: , lives with family. denies: smoking, alcohol abuse, prescription drug abuse Family history: diabetes, hypertension Medications and Allergies Allergies Allergy/AdvReac Type Severity Reaction Status Date / Time No Known Allergies Allergy Verified 10/16/14 12:48 Home Medications Medication Instructions Recorded Confirmed Last Taken Type Fenofibrate [Lofibra] 160 mg PO QDAY 01/13/14 12/15/17 10/16/14 07:00 History Insulin Lispro Protamin/Lispro 50 units SQ BID #1 pen 12/19/17 Unknown Rx [HumaLOG Mix 75-25 Kwikpen] Insulin Lispro [Humalog Kwikpen 1 units SQ AC PRN #1 pen 12/19/17 Unknown Rx 200 UNITS/ML] Losartan [Cozaar] 50 mg PO QDAY #30 tablet 12/19/17 Unknown Rx Mesalamine [Delzicol] 800 mg PO TID #90 cap 12/19/17 Unknown Rx Omeprazole 20 mg PO DAILY #30 12/19/17 12/15/17 Unknown Rx Tamsulosin [Flomax] 0.4 mg PO QDAY #30 capsule 12/19/17 Unknown Rx Active Meds: Active Medications Dextrose (D50w (25gm) Syringe) 0 ml IV PRN PRN PRN Reason: Hypoglycemia Potassium Chloride/Dextrose/Sod Cl (D5w/0.45% Nacl/Kcl 20 Meq) 20 meq in 1,000 mls @ 125 mls/hr IV DIRECT EMILY Sodium Chloride (Nacl 0.9% 1000 Ml) 1,000 mls @ 999 mls/hr IV BOLUS ONE Stop: 11/28/18 19:53 Insulin Human Regular 100 (units/ Sodium Chloride) 100 mls @ 1 mls/hr IV TITR EMILY; Protocol Review of Systems ROS unobtainable: due to mental status Exam - Constitutional Vitals: Temp Pulse Resp BP Pulse Ox 97.5 F L 129 H 20 144/97 98 11/28/18 17:35 11/28/18 17:35 11/28/18 17:35 11/28/18 17:35 11/28/18 17:35 General appearance: Present: mild distress - EENT Eyes: Present: miosis - Neck Neck: Present: supple, normal ROM - Respiratory Respiratory effort: normal Respiratory: bilateral: CTA - Cardiovascular Rhythm: other (tachycardia) Heart Sounds: Present: S1 & S2. Absent: rub, click - Extremities Extremities: pulses symmetrical, No edema Peripheral Pulses: within normal limits - Abdominal General gastrointestinal: Present: soft, non-tender, non-distended, normal bowel sounds Male genitourinary: Present: normal - Integumentary Integumentary: Present: clear, dry, clammy - Musculoskeletal Musculoskeletal: generalized weakness - Psychiatric Psychiatric: no appropriate mood/affect, no intact judgment & insight, no memory intact - Neurologic Neurologic: moves all extremities, no gait normal Results - Labs CBC & Chem 7: 11/28/18 17:54 11/28/18 17:54 Labs: Abnormal lab results 11/28/18 11/28/18 11/28/18 Range/Units 17:18 17:54 17:54 WBC 16.7 H (4.5-11.0) K/mm3 RBC 5.79 H (3.65-5.03) M/mm3 Hgb 17.4 H (11.8-15.2) gm/dl Hct 54.5 H (35.5-45.6) % Seg Neuts % (Manual) 88.0 H (40.0-70.0) % Lymphocytes % (Manual) 8.0 L (13.4-35.0) % Seg Neutrophils # Man 14.7 H (1.8-7.7) K/mm3 PT (12.2-14.9) Sec. INR (0.87-1.13) VBG pH (7.320-7.420) Sodium 130 L (137-145) mmol/L Potassium 5.8 H (3.6-5.0) mmol/L Chloride 84.7 L (98-107) mmol/L Carbon Dioxide 8 L* (22-30) mmol/L BUN 41 H (9-20) mg/dL Creatinine 2.2 H (0.8-1.5) mg/dL Glucose 821 H* (75-100) mg/dL POC Glucose > 500 H (70-105) Magnesium (1.7-2.3) mg/dL Total Creatine Kinase (55-170) units/L Total Protein 8.7 H (6.3-8.2) g/dL 11/28/18 11/28/18 11/28/18 Range/Units 17:54 18:20 18:20 WBC (4.5-11.0) K/mm3 RBC (3.65-5.03) M/mm3 Hgb (11.8-15.2) gm/dl Hct (35.5-45.6) % Seg Neuts % (Manual) (40.0-70.0) % Lymphocytes % (Manual) (13.4-35.0) % Seg Neutrophils # Man (1.8-7.7) K/mm3 PT 15.3 H (12.2-14.9) Sec. INR 1.14 H (0.87-1.13) VBG pH 7.108 L* (7.320-7.420) Sodium (137-145) mmol/L Potassium (3.6-5.0) mmol/L Chloride (98-107) mmol/L Carbon Dioxide (22-30) mmol/L BUN (9-20) mg/dL Creatinine (0.8-1.5) mg/dL Glucose (75-100) mg/dL POC Glucose (70-105) Magnesium 2.90 H (1.7-2.3) mg/dL Total Creatine Kinase 39 L (55-170) units/L Total Protein (6.3-8.2) g/dL Assessment and Plan - Patient Problems (1) Sepsis Status: Acute Qualifiers: Sepsis type: sepsis due to unspecified organism Qualified Code(s): A41.9 - Sepsis, unspecified organism Plan to address problem: Iv antibiotic therapy, IVF resuscitation therapy, monitor uop q shift, serial la ctic acid, blood cultures, Chest x ray, urinalysis, The high probability of a clinically significant, sudden or life threatening deterioration of the [neuro, endocrine, respiratory] system(s) required my full and direct attention, intervention and personal management. The aggregate critical care time was [65] minutes. This time is in addition to time spent performing reported procedures but includes the following: [x] Data Review and interpretation [x] Patient assessment and monitoring of vital signs [x] Documentation [x] Medication orders and management (2) GERD (gastroesophageal reflux disease) Status: Chronic Qualifiers: Esophagitis presence: without esophagitis Qualified Code(s): K21.9 - Gastro-esophageal reflux disease without esophagitis Plan to address problem: PPI therapy, (3) Encephalopathy Status: Acute Plan to address problem: CT head, neuro check, aspiration precautions, seizure precautions (4) DKA (diabetic ketoacidoses) Status: Acute Plan to address problem: Admit to ICU, DKA protocol, IVF resuscitation, insulin drip, serial bmp, monitor uop q shift, (5) DVT prophylaxis Status: Acute Plan to address problem: SCD to BLE while in bed.
[2018-11-28] MEDS ORDERED: SODIUM BICARBONATE IV ONE ×2 (20:00→20:30)
[2018-11-28] MEDS ORDERED: HumuLIN R 100 UNITS in NACL 0.9% 99 ML IV SCH (20:00)
[2018-11-28 20:23] LABS: Bacteria,Urine 2+ /HPF (Negative); Bilirubin,Urine NEG (Negative); Blood,Urine SM (Negative); Color,Urine Straw (Yellow); Mucus,Urine FEW /HPF; Protein,Urine <15 mg/dL mg/dL (Negative); Urobilinogen,Urine < 2.0 mg/dL (<2.0)
--- NOTE | 2018-11-28 21:13 | Cat Scan Report ---
FINAL REPORT EXAM: CT HEAD/BRAIN WO CON HISTORY: confusion TECHNIQUE: CT head without contrast PRIORS: None. FINDINGS: No acute intra-axial or extra-axial hemorrhage is identified. There is no evidence of midline shift or mass effect. The ventricles and sulci are within normal limits. De Luna-white matter differentiation is intact. No acute parenchymal abnormalities seen. Bony calvarium is grossly intact. There is opacity within left ethmoid air cells and left frontal sin us cells. IMPRESSION: Evidence for chronic sinusitis No acute intracranial findings
[2018-11-28] MEDS: ZOSYN/NS 2.25 GM/50ML 2.25 GM/50 ML BAG IV SCH (21:18)
[2018-11-28] MEDS: HumuLIN R 100 UNITS in NACL 0.9% 99 ML IV SCH (21:25)
[2018-11-28] MEDS ORDERED: VANCOMYCIN 1,500 MG in NACL 0.9% 500 ML 500 ML IV ONE (22:00)
[2018-11-28] MEDS ORDERED: ZOSYN/NS 4.5GM/100ML 4.5 GM/100 ML VIAL IV SCH (22:00)
[2018-11-28 22:31] LABS: Calcium 8.1 mg/dL (8.4-10.2)
[2018-11-29 00:17] LABS: Calcium 8.6 mg/dL (8.4-10.2)
[2018-11-29 00:31] LABS: Calcium 8.7 mg/dL (8.4-10.2)
[2018-11-29] MEDS: ZOSYN/NS 2.25 GM/50ML 2.25 GM/50 ML BAG IV SCH ×4 (02:00→19:50)
[2018-11-29] MEDS: SODIUM CHLORIDE FLUSH SYRINGE 10 ML IV SCH (02:09)
[2018-11-29] MEDS ORDERED: D5/0.45NS 1,000 ML IV SCH (03:00)
[2018-11-29 03:12] LABS: BUN/Creatinine Ratio 24; Blood Urea Nitrogen 34 mg/dL (9-20); Calcium 8.8 mg/dL (8.4-10.2); Hemolysis Index 71
[2018-11-29 04:42] LABS: Calcium 8.7 mg/dL (8.4-10.2)
[2018-11-29] MEDS ORDERED: D5/0.45NS 1,000 ML IV ONE ×2 (05:53→13:10)
--- NOTE | 2018-11-29 09:47 | Consultation ---
History of Present Illness Consult date: 11/29/18 Requesting physician: LUKE MCKENZIE Reason for consult: other (severe sepsis, DKA, acute encephalopathy) History of present illness: History as per medical records and his who is at the bedside at the time of my evaluation in the ED 68 YO Male with DM, Medication and Dietary Noncompliance, GERD, OA, Dementia, Ne phrolithiasis, Sickle Cell Trait, UC presents to ED for evaluation. The patient is lethargic and unable to provide history at time of exam. History is provided by who is at bedside during exam and interview. As per , the patient and experienced weakness, increased thirst, fatigue, and confusion over the past 4 days with worsening symptoms over the past 1 day. He is currently unable to in dependently conduct activities of daily living. Patient transported to [facility] by his for further care and evaluation. I have been consulted fro critical care management. Patient was seen and examined. Vitals, labs, medications, chart and imaging reviewed. Past History Past Medical History: arthritis, diabetes, GERD, other (SC Trait, Dementia) Past Surgical History: cholecystectomy Social history: , lives with family. denies: smoking, alcohol abuse, prescription drug abuse Family history: diabetes, hypertension Medications and Allergies Allergies Allergy/AdvReac Type Severity Reaction Status Date / Time No Known Allergies Allergy Verified 10/16/14 12:48 Home Medications Medication Instructions Recorded Confirmed Last Taken Type Ciprofloxacin HCl [Cipro] 500 mg PO BID #10 tablet 12/02/18 Unknown Rx Insulin NPH/Regular [NovoLIN 70/30] 25 unit SUB-Q BIDDIAB 30 Days 12/02/18 Unknown Rx units Losartan [Cozaar] 50 mg PO QDAY #30 tablet 12/02/18 Unknown Rx Metformin HCl [Glucophage] 1,000 mg PO BIDWM #60 tablet 12/02/18 Unknown Rx Nystatin Cream [Mycostatin Cream] 1 applic TP BID 30 Days tube 12/02/18 Unknown Rx Active Meds: Active Medications Acetaminophen (Tylenol) 650 mg PO Q4H PRN PRN Reason: Pain MILD(1-3)/Fever >100.5/JONES Dextrose (D50w (25gm) Syringe) 0 ml IV PRN PRN PRN Reason: Hypoglycemia Insulin Human Regular 100 (units/ Sodium Chloride) 100 mls @ 1 mls/hr IV TITR EMILY; Protocol Last Titration: 11/29/18 08:41 Dose: 4 units/hr, 4 mls/hr Documented by: Piperacillin Sod/Tazobactam Sod (Zosyn/Ns 2.25 Gm/50ml) 2.25 gm in 50 mls @ 100 mls/hr IV Q6HR [facility] Last Admin: 11/29/18 06:39 Dose: 100 mls/hr Documented by: Dextrose/Sodium Chloride (D5/0.45ns) 1,000 mls @ 125 mls/hr IV DIRECT EMILY Ondansetron HCl (Zofran) 4 mg IV Q8H PRN PRN Reason: Nausea And Vomiting Sodium Chloride (Sodium Chloride Flush Syringe 10 Ml) 10 ml IV BID [facility] Last Admin: 11/29/18 02:09 Dose: 10 ml Documented by: Sodium Chloride (Sodium Chloride Flush Syringe 10 Ml) 10 ml IV PRN PRN PRN Reason: LINE FLUSH Review of Systems ROS unobtainable: due to mental status Physical Examination Vital signs: Vital Signs Temp Pulse Resp BP Pulse Ox 97.5 F L 129 H 20 144/97 98 11/28/18 17:35 11/28/18 17:35 11/28/18 17:35 11/28/18 17:35 11/28/18 17:35 Constitutional: no acute distress, alert, other (elderly looking AAM, normocephalic and atraumatic with mildly increased respiratory effort at rest) Eyes: non-icteric ENT: oropharynx moist, other (mallampati 2) Neck: supple, no lymphadenopathy, no JVD Effort: mildly labored Ascultation: Bilateral: diminished breath sounds, rhonchi (scant) Percussion: Bilateral: not dull Cardiovascular: tachycardia, S1,S2, Phimosis, erythema around penile shat with white crusted lesions Gastrointestinal: normoactive bowel sounds, soft, non-tender, non-distended Integumentary: normal Extremities: no cyanosis, no edema, pulses normal, no ischemia or petechiae Neurologic: non-focal exam, pupils equal and round, no focal deficit Psychiatric: unalbe to assess Results - Laboratory Findings CBC and BMP: 12/02/18 04:26 12/02/18 04:26 PT/INR, D-dimer PT 15.3 Sec. (12.2-14.9) H 11/28/18 18:20 INR 1.14 (0.87-1.13) H 11/28/18 18:20 Abnormal lab findings: Abnormal Labs 11/28/18 11/28/18 11/28/18 17:18 17:54 17:54 WBC 16.7 H RBC 5.79 H Hgb 17.4 H Hct 54.5 H Seg Neuts % (Manual) 88.0 H Lymphocytes % (Manual) 8.0 L Seg Neutrophils # Man 14.7 H PT INR VBG pH Sodium 130 L Potassium 5.8 H Chloride 84.7 L Carbon Dioxide 8 L* BUN 41 H Creatinine 2.2 H Glucose 821 H* POC Glucose > 500 H Lactic Acid Calcium Phosphorus Magnesium Total Creatine Kinase Total Protein 8.7 H Urine WBC (Auto) 11/28/18 11/28/18 11/28/18 17:54 18:20 18:20 WBC RBC Hgb Hct Seg Neuts % (Manual) Lymphocytes % (Manual) Seg Neutrophils # Man PT 15.3 H INR 1.14 H VBG pH 7.108 L* Sodium Potassium Chloride Carbon Dioxide BUN Creatinine Glucose POC Glucose Lactic Acid Calcium Phosphorus Magnesium 2.90 H Total Creatine Kinase 39 L Total Protein Urine WBC (Auto) 11/28/18 11/28/18 11/28/18 19:30 20:55 21:40 WBC RBC Hgb Hct Seg Neuts % (Manual) Lymphocytes % (Manual) Seg Neutrophils # Man PT INR VBG pH Sodium Potassium 5.5 H Chloride Carbon Dioxide 11 L BUN 38 H Creatinine 1.6 H Glucose 438 H POC Glucose 432 H Lactic Acid Calcium 8.1 L D Phosphorus Magnesium Total Creatine Kinase Total Protein Urine WBC (Auto) 17.0 H 11/28/18 11/28/18 11/28/18 21:40 21:40 22:23 WBC RBC Hgb Hct Seg Neuts % (Manual) Lymphocytes % (Manual) Seg Neutrophils # Man PT INR VBG pH Sodium Potassium Chloride Carbon Dioxide BUN Creatinine Glucose POC Glucose 401 H Lactic Acid 3.80 H* Calcium Phosphorus 4.80 H Magnesium 2.40 H Total Creatine Kinase Total Protein Urine WBC (Auto) 11/28/18 11/28/18 11/28/18 23:19 23:19 23:55 WBC RBC Hgb Hct Seg Neuts % (Manual) Lymphocytes % (Manual) Seg Neutrophils # Man PT INR VBG pH Sodium Potassium Chloride Carbon Dioxide 10 L 8 L* BUN 37 H 36 H Creatinine 1.6 H Glucose 380 H 305 H POC Glucose Lactic Acid 3.00 H* Calcium Phosphorus Magnesium Total Creatine Kinase Total Protein Urine WBC (Auto) 11/28/18 11/29/18 11/29/18 23:55 00:04 01:29 WBC RBC Hgb Hct Seg Neuts % (Manual) Lymphocytes % (Manual) Seg Neutrophils # Man PT INR VBG pH Sodium 146 H Potassium Chloride 108.2 H Carbon Dioxide 12 L BUN 34 H Creatinine Glucose 175 H POC Glucose 294 H Lactic Acid 2.60 H* Calcium Phosphorus Magnesium Total Creatine Kinase Total Protein Urine WBC (Auto) 11/29/18 11/29/18 11/29/18 01:29 01:30 03:39 WBC RBC Hgb Hct Seg Neuts % (Manual) Lymphocytes % (Manual) Seg Neutrophils # Man PT INR VBG pH Sodium Potassium Chloride Carbon Dioxide BUN Creatinine Glucose POC Glucose 227 H 192 H Lactic Acid 2.50 H* Calcium Phosphorus Magnesium Total Creatine Kinase Total Protein Urine WBC (Auto) 11/29/18 11/29/18 11/29/18 03:52 03:52 05:43 WBC RBC Hgb Hct Seg Neuts % (Manual) Lymphocytes % (Manual) Seg Neutrophils # Man PT INR VBG pH Sodium 147 H Potassium Chloride 107.1 H Carbon Dioxide 15 L BUN 34 H Creatinine Glucose 189 H POC Glucose 286 H Lactic Acid 3.00 H* Calcium Phosphorus Magnesium Total Creatine Kinase Total Protein Urine WBC (Auto) 11/29/18 11/29/18 11/29/18 05:50 07:34 08:36 WBC RBC Hgb Hct Seg Neuts % (Manual) Lymphocytes % (Manual) Seg Neutrophils # Man PT INR VBG pH Sodium Potassium Chloride Carbon Dioxide BUN Creatinine Glucose POC Glucose 267 H Lactic Acid 2.40 H* 4.00 H* Calcium Phosphorus Magnesium Total Creatine Kinase Total Protein Urine WBC (Auto) - Diagnostic Findings Chest x-ray: image reviewed Assessment and Plan Severe Sepsis. Etiology secondary to UTI. Lactic acidosis UTI. Toxic metabolic encephalopathy. Diabetic ketoacidosis Hypertension. Gastroesophageal reflux disease. Acute kidney injury Phimosis h/o Medical non-compliance -Admit ICU -Follow cultures -Continue antibiotics, de-escalate based on clinical and microbiologic data -Check procalcitonin levels -DKA management per protocol -Aspiration precautions, NPO for now -Monitor electrolytes and renal indices -Adjust all medication dosing for GFR and CrCL -Avoid nephrotoxic agents, replace electrolytes per protocol -Avoid ICU psychosis, maintenance sleep -wake cycle -Continue chronic home medications -VTE prophylaxis -Urology consult -counselling on medical compliance/adherence when the encephalopathy resolves Discussed care plan with hospitalist and ED staff. Updated his at the bedside. Answered all her questions. CONDITION: CRITICAL PROGNOSIS: GUARDED CODE STATUS: FULL The high probability of a clinically significant, sudden or life threatening deterioration of the [neurological, renal and endocrine] system(s) required my f ull and direct attention, intervention and personal management. The aggregate critical care time was [31] minutes. This time is in addition to time spent performing reported procedures but includes the following: [x] Data Review and interpretation [x] Patient assessment and monitoring of vital signs [x] Documentation [x] Medication orders and management
[2018-11-29 11:24] LABS: Calcium 8.9 mg/dL (8.4-10.2)
--- NOTE | 2018-11-29 12:32 | Progress Note ---
Assessment and Plan Assessment and plan: Severe Sepsis. Etiology secondary to UTI. UA reveals 17 WBCs. Follow-up blood and urine cultures. Continue IV antibiotics. Patient with elevated lactic acid. Continue to trend lactic acid levels. UTI. As above. Toxic metabolic encephalopathy. Continue to treat underlying causes. Patient does appear to have a history of underlying dementia. DKA. Continue with IV insulin and transition to long-acting insulin when the anion gap is closed. Hypertension. Resume antihypertensive medications. Gastroesophageal reflux disease. Continue PPI. The high probability of a clinically significant, sudden or life threatening deterioration of the [neurological and endocrine] system(s) required my full and direct attention, intervention and personal management. The aggregate critical care time was [31] minutes. This time is in addition to time spent performing reported procedures but includes the following: [x] Data Review and interpretation [x] Patient assessment and monitoring of vital signs [x] Documentation [x] Medication orders and management History Interval history: No new issues overnight. Patient is confused and unable to give any history. No family is at the bedside. Hospitalist Physical - Constitutional Vitals: Temp Pulse Resp BP Pulse Ox 98.0 F 104 H 15 143/96 96 11/29/18 07:34 11/29/18 12:24 11/29/18 07:34 11/29/18 12:23 11/29/18 12:23 General appearance: Present: no acute distress - EENT Eyes: Present: PERRL, EOM intact ENT: hearing intact, clear oral mucosa, dentition normal - Neck Neck: Present: supple, normal ROM - Respiratory Respiratory effort: normal Respiratory: bilateral: CTA - Cardiovascular Rhythm: regular Heart Sounds: Present: S1 & S2. Absent: gallop, rub - Extremities Extremities: no ischemia, No edema, Full ROM - Abdominal General gastrointestinal: soft, non-tender, non-distended, normal bowel sounds - Integumentary Integumentary: Present: clear, warm, dry - Neurologic Neurologic: CNII-XII intact, moves all extremities Results - Labs CBC & Chem 7: 11/28/18 17:54 11/29/18 10:43 Labs: Laboratory Last Values WBC 16.7 K/mm3 (4.5-11.0) H 11/28/18 17:54 RBC 5.79 M/mm3 (3.65-5.03) H 11/28/18 17:54 Hgb 17.4 gm/dl (11.8-15.2) H 11/28/18 17:54 Hct 54.5 % (35.5-45.6) H 11/28/18 17:54 MCV 94 fl (84-94) 11/28/18 17:54 MCH 30 pg (28-32) 11/28/18 17:54 MCHC 32 % (32-34) 11/28/18 17:54 RDW 14.6 % (13.2-15.2) 11/28/18 17:54 Plt Count 208 K/mm3 (140-440) 11/28/18 17:54 Add Manual Diff Complete 11/28/18 17:54 Total Counted 100 11/28/18 17:54 Seg Neuts % (Manual) 88.0 % (40.0-70.0) H 11/28/18 17:54 Band Neutrophils % 2.0 % 11/28/18 17:54 Lymphocytes % (Manual) 8.0 % (13.4-35.0) L 11/28/18 17:54 Reactive Lymphs % (Man) 0 % 11/28/18 17:54 Monocytes % (Manual) 1.0 % (0.0-7.3) 11/28/18 17:54 Eosinophils % (Manual) 0 % (0.0-4.3) 11/28/18 17:54 Basophils % (Manual) 0 % (0.0-1.8) 11/28/18 17:54 Metamyelocytes % 1.0 % 11/28/18 17:54 Myelocytes % 0 % 11/28/18 17:54 Promyelocytes % 0 % 11/28/18 17:54 Blast Cells % 0 % 11/28/18 17:54 Nucleated RBC % Not Reportable 11/28/18 17:54 Seg Neutrophils # Man 14.7 K/mm3 (1.8-7.7) H 11/28/18 17:54 Band Neutrophils # 0.3 K/mm3 11/28/18 17:54 Lymphocytes # (Manual) 1.3 K/mm3 (1.2-5.4) 11/28/18 17:54 Abs React Lymphs (Man) 0.0 K/mm3 11/28/18 17:54 Monocytes # (Manual) 0.2 K/mm3 (0.0-0.8) 11/28/18 17:54 Eosinophils # (Manual) 0.0 K/mm3 (0.0-0.4) 11/28/18 17:54 Basophils # (Manual) 0.0 K/mm3 (0.0-0.1) 11/28/18 17:54 Metamyelocytes # 0.2 K/mm3 11/28/18 17:54 Myelocytes # 0.0 K/mm3 11/28/18 17:54 Promyelocytes # 0.0 K/mm3 11/28/18 17:54 Blast Cells # 0.0 K/mm3 11/28/18 17:54 WBC Morphology Not Reportable 11/28/18 17:54 Hypersegmented Neuts Not Reportable 11/28/18 17:54 Hyposegmented Neuts Not Reportable 11/28/18 17:54 Hypogranular Neuts Not Reportable 11/28/18 17:54 Smudge Cells Not Reportable 11/28/18 17:54 Toxic Granulation Not Reportable 11/28/18 17:54 Toxic Vacuolation Not Reportable 11/28/18 17:54 Dohle Bodies Not Reportable 11/28/18 17:54 Pelger-Huet Anomaly Not Reportable 11/28/18 17:54 Eliezer Rods Not Reportable 11/28/18 17:54 Platelet Estimate Consistent w auto 11/28/18 17:54 Clumped Platelets Not Reportable 11/28/18 17:54 Plt Clumps, EDTA Not Reportable 11/28/18 17:54 Large Platelets 1+ 11/28/18 17:54 Giant Platelets Not Reportable 11/28/18 17:54 Platelet Satelliting Not Reportable 11/28/18 17:54 Plt Morphology Comment Not Reportable 11/28/18 17:54 RBC Morphology Normal 11/28/18 17:54 Dimorphic RBCs Not Reportable 11/28/18 17:54 Polychromasia Not Reportable 11/28/18 17:54 Hypochromasia Not Reportable 11/28/18 17:54 Poikilocytosis Not Reportable 11/28/18 17:54 Anisocytosis Not Reportable 11/28/18 17:54 Microcytosis Not Reportable 11/28/18 17:54 Macrocytosis Not Reportable 11/28/18 17:54 Spherocytes Not Reportable 11/28/18 17:54 Pappenheimer Bodies Not Reportable 11/28/18 17:54 Sickle Cells Not Reportable 11/28/18 17:54 Target Cells Not Reportable 11/28/18 17:54 Tear Drop Cells Not Reportable 11/28/18 17:54 Ovalocytes Not Reportable 11/28/18 17:54 Helmet Cells Not Reportable 11/28/18 17:54 Bernal-Channing Bodies Not Reportable 11/28/18 17:54 Little Neck Rings Not Reportable 11/28/18 17:54 Sebas Cells Not Reportable 11/28/18 17:54 Bite Cells Not Reportable 11/28/18 17:54 Crenated Cell Not Reportable 11/28/18 17:54 Elliptocytes Not Reportable 11/28/18 17:54 Acanthocytes (Spur) Not Reportable 11/28/18 17:54 Rouleaux Not Reportable 11/28/18 17:54 Hemoglobin C Crystals Not Reportable 11/28/18 17:54 Schistocytes Not Reportable 11/28/18 17:54 Malaria parasites Not Reportable 11/28/18 17:54 Josias Bodies Not Reportable 11/28/18 17:54 Hem Pathologist Commnt No 11/28/18 17:54 PT 15.3 Sec. (12.2-14.9) H 11/28/18 18:20 INR 1.14 (0.87-1.13) H 11/28/18 18:20 VBG pH 7.108 (7.320-7.420) L* 11/28/18 17:54 Sodium 146 mmol/L (137-145) H 11/29/18 10:43 Potassium 4.3 mmol/L (3.6-5.0) 11/29/18 10:43 Chloride 107.9 mmol/L (98-107) H 11/29/18 10:43 Carbon Dioxide 19 mmol/L (22-30) L 11/29/18 10:43 Anion Gap 23 mmol/L 11/29/18 10:43 BUN 34 mg/dL (9-20) H 11/29/18 10:43 Creatinine 1.5 mg/dL (0.8-1.5) 11/29/18 10:43 Estimated GFR 57 ml/min 11/29/18 10:43 BUN/Creatinine Ratio 23 % 11/29/18 10:43 Glucose 214 mg/dL (75-100) H 11/29/18 10:43 POC Glucose 221 (70-105) H 11/29/18 12:05 Lactic Acid 3.30 mmol/L (0.7-2.0) H* 11/29/18 10:43 Calcium 8.9 mg/dL (8.4-10.2) 11/29/18 10:43 Phosphorus 4.80 mg/dL (2.5-4.5) H 11/28/18 21:40 Magnesium 2.40 mg/dL (1.7-2.3) H 11/28/18 21:40 Total Bilirubin 0.90 mg/dL (0.1-1.2) 11/28/18 17:54 AST 15 units/L (5-40) 11/28/18 17:54 ALT 13 units/L (7-56) 11/28/18 17:54 Alkaline Phosphatase 118 units/L (35-129) 11/28/18 17:54 Total Creatine Kinase 39 units/L (55-170) L 11/28/18 18:20 Troponin T < 0.010 ng/mL (0.00-0.029) 11/28/18 23:19 Total Protein 8.7 g/dL (6.3-8.2) H 11/28/18 17:54 Albumin 4.4 g/dL (3.9-5) 11/28/18 17:54 Albumin/Globulin Ratio 1.0 % 11/28/18 17:54 TSH 1.630 mlU/mL (0.270-4.200) 11/28/18 18:20 Urine Color Straw (Yellow) 11/28/18 19:30 Urine Turbidity Slightly-cloudy (Clear) 11/28/18 19:30 Urine pH 5.0 (5.0-7.0) 11/28/18 19: Ur Specific Mathis 1.018 (1.003-1.030) 11/28/18 19:30 Urine Protein <15 mg/dl mg/dL (Negative) 11/28/18 19:30 Urine Glucose (UA) >=500 mg/dL (Negative) 11/28/18 19:30 Urine Ketones 20 mg/dL (Negative) 11/28/18 19:30 Urine Blood Sm (Negative) 11/28/18 19:30 Urine Nitrite Neg (Negative) 11/28/18 19:30 Urine Bilirubin Neg (Negative) 11/28/18 19:30 Urine Urobilinogen < 2.0 mg/dL (<2.0) 11/28/18 19:30 Ur Leukocyte Esterase Sm (Negative) 11/28/18 19:30 Urine WBC (Auto) 17.0 /HPF (0.0-6.0) H 11/28/18 19:30 Urine RBC (Auto) 8.0 /HPF (0.0-6.0) 11/28/18 19:30 U Epithel Cells (Auto) 1.0 /HPF (0-13.0) 11/28/18 19:30 Urine Bacteria (Auto) 2+ /HPF (Negative) 11/28/18 19:30 Urine Mucus Few /HPF 11/28/18 19:30 Urine Yeast (Budding) 1+ /HPF 11/28/18 19:30
[2018-11-29] MEDS: D5/0.45NS 1,000 ML IV SCH (13:42)
[2018-11-29] MEDS ORDERED: ZOSYN/NS 4.5GM/100ML 4.5 GM/100 ML VIAL IV ONE (14:18)
[2018-11-29 20:47] LABS: BUN/Creatinine Ratio 23; Blood Urea Nitrogen 25 mg/dL (9-20); Calcium 8.7 mg/dL (8.4-10.2); Hemolysis Index 36
[2018-11-29] MEDS: HumuLIN R 100 UNITS in NACL 0.9% 99 ML IV SCH (22:10)
[2018-11-30] MEDS: ZOSYN/NS 2.25 GM/50ML 2.25 GM/50 ML BAG IV SCH ×4 (02:41→17:41)
[2018-11-30] MEDS: D5/0.45NS 1,000 ML IV SCH (07:49)
[2018-11-30] MEDS: SODIUM CHLORIDE FLUSH SYRINGE 10 ML IV SCH ×2 (09:17→22:19)
[2018-11-30] MEDS: COZAAR PO SCH (09:17)
[2018-11-30 10:47] LABS: Hematocrit 41.1 % (35.5-45.6); Hemoglobin 14.4 gm/dl (11.8-15.2); Mean Corpuscular HGB Conc 35 % (32-34); Mean Corpuscular Volume 87 fl (84-94); Platelet Count 133 K/mm3 (140-440); Red Cell Distribution Width 14.2 % (13.2-15.2)
[2018-11-30 11:04] LABS: BUN/Creatinine Ratio 18; Blood Urea Nitrogen 18 mg/dL (9-20)
[2018-11-30 11:05] LABS: Hemolysis Index 35
--- NOTE | 2018-11-30 11:30 | Progress Note ---
Assessment and Plan Sepsis Syndrome (Likely secondary to UTI) DKA UTI Acute Encephalopathy (Toxic-Metabolic) HTN GERD - transitioned off DKA protocol - begin long acting insulin - continue SSI for target BG 140 - 180 mg/dl - supplemental oxygen as neded to keep sats > 90% - check CRP level to aid clinical decision making - add GI & VTE prophylaxis - PT/OT as tolerated - better medication compliance counseled - continue chronic disease medications per attending - continue empiric AB's and de-escalate based on clinical and microbiologic data - continue other care per attending / other consultants ... re-evaluate in am & prn ... ok to transfer out of ICU Subjective Date of service: 11/30/18 Principal diagnosis: Sepsis Syndrome; DKA; UTI; Acute Encephalopathy (Toxic- Metabolic); HTN Interval history: Patient is seen today for: Sepsis Syndrome (Likely secondary to UTI); DKA; UTI; Acute Encephalopathy (Toxic-Metabolic); HTN Seen and examined at bedside; 24hour events reviewed; nursing and respiratory c are staff consulted; no adverse overnight events reported to me; resting peacefully in bed; eating lunch; rn patient care visiting; denies acute chest pains or palpitations; still a little confused Objective Vital Signs - 12hr 11/30/18 11/30/18 11/30/18 00:00 01:00 02:01 Temperature 98.8 F Pulse Rate 102 H 104 H Respiratory Rate Blood Pressure 123/78 123/78 123/78 O2 Sat by Pulse Oximetry 11/30/18 11/30/18 11/30/18 03:00 04:00 05:00 Temperature Pulse Rate 111 H 94 H Respiratory Rate Blood Pressure 123/78 123/78 123/78 O2 Sat by Pulse 99 98 99 Oximetry 11/30/18 11/30/18 11/30/18 06:00 07:00 08:00 Temperature Pulse Rate 102 H 101 H 101 H Respiratory 22 Rate Blood Pressure 123/78 123/78 122/88 O2 Sat by Pulse 95 Oximetry 11/30/18 11/30/18 11/30/18 09:00 09:17 10:00 Temperature Pulse Rate 100 H 91 H 102 H Respiratory 17 16 Rate Blood Pressure 135/92 126/84 126/84 O2 Sat by Pulse 99 98 Oximetry 11/30/18 11:00 Temperature Pulse Rate 90 Respiratory 20 Rate Blood Pressure 127/81 O2 Sat by Pulse Oximetry Constitutional: no acute distress, alert, other (elderly looking AAM, normocephalic and atraumatic with mildly increased respiratory effort at rest) Eyes: non-icteric ENT: oropharynx moist, other (mallampati 2) Neck: supple, no lymphadenopathy, no JVD Effort: mildly labored Ascultation: Bilateral: diminished breath sounds, rhonchi (scant) Percussion: Bilateral: not dull Cardiovascular: regular rate and rhythm Gastrointestinal: normoactive bowel sounds, soft, non-tender, non-distended Integumentary: normal Extremities: no cyanosis, no edema, pulses normal, no ischemia or petechiae Neurologic: non-focal exam, pupils equal and round, CN II-XII normal, motor s trength normal and Psychiatric: mood appropriate, affect normal CBC and BMP: 11/30/18 09:54 11/30/18 09:54 ABG, PT/INR, D-dimer: PT/INR, D-dimer PT 15.3 Sec. (12.2-14.9) H 11/28/18 18:20 INR 1.14 (0.87-1.13) H 11/28/18 18:20 Abnormal lab findings: Abnormal Labs 11/28/18 11/28/18 11/28/18 17:18 17:54 17:54 WBC 16.7 H RBC 5.79 H Hgb 17.4 H Hct 54.5 H MCHC Plt Count Seg Neuts % (Manual) 88.0 H Lymphocytes % (Manual) 8.0 L Seg Neutrophils # Man 14.7 H PT INR VBG pH Sodium 130 L Potassium 5.8 H Chloride 84.7 L Carbon Dioxide 8 L* BUN 41 H Creatinine 2.2 H Glucose 821 H* POC Glucose > 500 H Lactic Acid Calcium Phosphorus Magnesium Total Creatine Kinase Total Protein 8.7 H Urine WBC (Auto) 11/28/18 11/28/18 11/28/18 17:54 18:20 18:20 WBC RBC Hgb Hct MCHC Plt Count Seg Neuts % (Manual) Lymphocytes % (Manual) Seg Neutrophils # Man PT 15.3 H INR 1.14 H VBG pH 7.108 L* Sodium Potassium Chloride Carbon Dioxide BUN Creatinine Glucose POC Glucose Lactic Acid Calcium Phosphorus Magnesium 2.90 H Total Creatine Kinase 39 L Total Protein Urine WBC (Auto) 02/19/19 02/19/19 02/19/19 19:30 20:55 21:40 WBC RBC Hgb Hct MCHC Plt Count Seg Neuts % (Manual) Lymphocytes % (Manual) Seg Neutrophils # Man PT INR VBG pH Sodium Potassium 5.5 H Chloride Carbon Dioxide 11 L BUN 38 H Creatinine 1.6 H Glucose 438 H POC Glucose 432 H Lactic Acid Calcium 8.1 L D Phosphorus Magnesium Total Creatine Kinase Total Protein Urine WBC (Auto) 17.0 H 11/28/18 11/28/18 11/28/18 21:40 21:40 22:23 WBC RBC Hgb Hct MCHC Plt Count Seg Neuts % (Manual) Lymphocytes % (Manual) Seg Neutrophils # Man PT INR VBG pH Sodium Potassium Chloride Carbon Dioxide BUN Creatinine Glucose POC Glucose 401 H Lactic Acid 3.80 H* Calcium Phosphorus 4.80 H Magnesium 2.40 H Total Creatine Kinase Total Protein Urine WBC (Auto) 11/28/18 11/28/18 11/28/18 23:19 23:19 23:55 WBC RBC Hgb Hct MCHC Plt Count Seg Neuts % (Manual) Lymphocytes % (Manual) Seg Neutrophils # Man PT INR VBG pH Sodium Potassium Chloride Carbon Dioxide 10 L 8 L* BUN 37 H 36 H Creatinine 1.6 H Glucose 380 H 305 H POC Glucose Lactic Acid 3.00 H* Calcium Phosphorus Magnesium Total Creatine Kinase Total Protein Urine WBC (Auto) 11/28/18 11/29/18 11/29/18 23:55 00:04 01:29 WBC RBC Hgb Hct MCHC Plt Count Seg Neuts % (Manual) Lymphocytes % (Manual) Seg Neutrophils # Man PT INR VBG pH Sodium 146 H Potassium Chloride 108.2 H Carbon Dioxide 12 L BUN 34 H Creatinine Glucose 175 H POC Glucose 294 H Lactic Acid 2.60 H* Calcium Phosphorus Magnesium Total Creatine Kinase Total Protein Urine WBC (Auto) 11/29/18 11/29/18 11/29/18 01:29 01:30 03:39 WBC RBC Hgb Hct MCHC Plt Count Seg Neuts % (Manual) Lymphocytes % (Manual) Seg Neutrophils # Man PT INR VBG pH Sodium Potassium Chloride Carbon Dioxide BUN Creatinine Glucose POC Glucose 227 H 192 H Lactic Acid 2.50 H* Calcium Phosphorus Magnesium Total Creatine Kinase Total Protein Urine WBC (Auto) 11/29/18 11/29/18 11/29/18 03:52 03:52 05:43 WBC RBC Hgb Hct MCHC Plt Count Seg Neuts % (Manual) Lymphocytes % (Manual) Seg Neutrophils # Man PT INR VBG pH Sodium 147 H Potassium Chloride 107.1 H Carbon Dioxide 15 L BUN 34 H Creatinine Glucose 189 H POC Glucose 286 H Lactic Acid 3.00 H* Calcium Phosphorus Magnesium Total Creatine Kinase Total Protein Urine WBC (Auto) 11/29/18 11/29/18 11/29/18 05:50 07:34 08:36 WBC RBC Hgb Hct MCHC Plt Count Seg Neuts % (Manual) Lymphocytes % (Manual) Seg Neutrophils # Man PT INR VBG pH Sodium Potassium Chloride Carbon Dioxide BUN Creatinine Glucose POC Glucose 267 H Lactic Acid 2.40 H* 4.00 H* Calcium Phosphorus Magnesium Total Creatine Kinase Total Protein Urine WBC (Auto) 11/29/18 11/29/18 11/29/18 08:44 09:52 10:43 WBC RBC Hgb Hct MCHC Plt Count Seg Neuts % (Manual) Lymphocytes % (Manual) Seg Neutrophils # Man PT INR VBG pH Sodium 146 H Potassium Chloride 107.9 H Carbon Dioxide 19 L BUN 34 H Creatinine Glucose 214 H POC Glucose 214 H 207 H Lactic Acid Calcium Phosphorus Magnesium Total Creatine Kinase Total Protein Urine WBC (Auto) 11/29/18 11/29/18 11/29/18 10:43 11:03 12:05 WBC RBC Hgb Hct MCHC Plt Count Seg Neuts % (Manual) Lymphocytes % (Manual) Seg Neutrophils # Man PT INR VBG pH Sodium Potassium Chloride Carbon Dioxide BUN Creatinine Glucose POC Glucose 205 H 221 H Lactic Acid 3.30 H* Calcium Phosphorus Magnesium Total Creatine Kinase Total Protein Urine WBC (Auto) 11/29/18 11/29/18 11/29/18 13:08 14:06 14:09 WBC RBC Hgb Hct MCHC Plt Count Seg Neuts % (Manual) Lymphocytes % (Manual) Seg Neutrophils # Man PT INR VBG pH Sodium Potassium Chloride Carbon Dioxide BUN Creatinine Glucose POC Glucose 199 H 185 H Lactic Acid 3.30 H* Calcium Phosphorus Magnesium Total Creatine Kinase Total Protein Urine WBC (Auto) 11/29/18 11/29/18 11/29/18 15:14 17:23 18:23 WBC RBC Hgb Hct MCHC Plt Count Seg Neuts % (Manual) Lymphocytes % (Manual) Seg Neutrophils # Man PT INR VBG pH Sodium Potassium Chloride Carbon Dioxide BUN Creatinine Glucose POC Glucose 259 H 239 H 205 H Lactic Acid Calcium Phosphorus Magnesium Total Creatine Kinase Total Protein Urine WBC (Auto) 11/29/18 11/29/18 11/29/18 19:36 20:05 20:10 WBC RBC Hgb Hct MCHC Plt Count Seg Neuts % (Manual) Lymphocytes % (Manual) Seg Neutrophils # Man PT INR VBG pH Sodium Potassium Chloride 107.6 H Carbon Dioxide 19 L BUN 25 H Creatinine Glucose 192 H POC Glucose 217 H 190 H Lactic Acid Calcium Phosphorus Magnesium Total Creatine Kinase Total Protein Urine WBC (Auto) 11/29/18 11/29/18 11/29/18 21:03 22:14 23:19 WBC RBC Hgb Hct MCHC Plt Count Seg Neuts % (Manual) Lymphocytes % (Manual) Seg Neutrophils # Man PT INR VBG pH Sodium Potassium Chloride Carbon Dioxide BUN Creatinine Glucose POC Glucose 178 H 133 H 116 H Lactic Acid Calcium Phosphorus Magnesium Total Creatine Kinase Total Protein Urine WBC (Auto) 11/30/18 11/30/18 11/30/18 00:21 01:08 02:39 WBC RBC Hgb Hct MCHC Plt Count Seg Neuts % (Manual) Lymphocytes % (Manual) Seg Neutrophils # Man PT INR VBG pH Sodium Potassium Chloride Carbon Dioxide BUN Creatinine Glucose POC Glucose 122 H 117 H 121 H Lactic Acid Calcium Phosphorus Magnesium Total Creatine Kinase Total Protein Urine WBC (Auto) 11/30/18 11/30/18 11/30/18 03:45 04:34 05:05 WBC RBC Hgb Hct MCHC Plt Count Seg Neuts % (Manual) Lymphocytes % (Manual) Seg Neutrophils # Man PT INR VBG pH Sodium Potassium Chloride Carbon Dioxide BUN Creatinine Glucose POC Glucose 130 H 125 H 128 H Lactic Acid Calcium Phosphorus Magnesium Total Creatine Kinase Total Protein Urine WBC (Auto) 11/30/18 11/30/18 11/30/18 06:45 07:39 09:06 WBC RBC Hgb Hct MCHC Plt Count Seg Neuts % (Manual) Lymphocytes % (Manual) Seg Neutrophils # Man PT INR VBG pH Sodium Potassium Chloride Carbon Dioxide BUN Creatinine Glucose POC Glucose 133 H 130 H 119 H Lactic Acid Calcium Phosphorus Magnesium Total Creatine Kinase Total Protein Urine WBC (Auto) 11/30/18 11/30/18 11/30/18 09:54 09:54 10:21 WBC RBC Hgb Hct MCHC 35 H Plt Count 133 L Seg Neuts % (Manual) Lymphocytes % (Manual) Seg Neutrophils # Man PT INR VBG pH Sodium Potassium Chloride Carbon Dioxide BUN Creatinine Glucose 126 H POC Glucose 124 H Lactic Acid Calcium Phosphorus Magnesium Total Creatine Kinase Total Protein Urine WBC (Auto) 11/30/18 11:24 WBC RBC Hgb Hct MCHC Plt Count Seg Neuts % (Manual) Lymphocytes % (Manual) Seg Neutrophils # Man PT INR VBG pH Sodium Potassium Chloride Carbon Dioxide BUN Creatinine Glucose POC Glucose 151 H Lactic Acid Calcium Phosphorus Magnesium Total Creatine Kinase Total Protein Urine WBC (Auto) Chest x-ray: image reviewed (no acute process) Allied health notes reviewed: nursing
[2018-11-30] MEDS ORDERED: D50W (25GM) Syringe IV PRN (11:31)
--- NOTE | 2018-11-30 11:37 | Progress Note ---
Assessment and Plan Assessment and plan: Severe Sepsis. Etiology secondary to UTI. UA reveals 17 WBCs. Follow-up blood and urine cultures. Continue IV antibiotics. Patient with elevated lactic acid. Continue to trend lactic acid levels. UTI. As above. Toxic metabolic encephalopathy. Resolving. Continue to treat underlying causes. Patient does appear to have a history of underlying dementia. DKA. Transition to long-acting insulin with 70/30 insulin 25 units twice a day. The patient will receive a dose now and start regimen in the evening. Insulin drip has been discontinued. Hypertension. Resume antihypertensive medications. Gastroesophageal reflux disease. Continue PPI. Disposition. Patient will be transferred to the floor. History Interval history: No new issues overnight. is at bedside. Patient appears to be back to baseline with regards to mental status. Hospitalist Physical - Constitutional Vitals: Temp Pulse Resp BP Pulse Ox 98.8 F 90 20 127/81 98 11/30/18 00:00 11/30/18 11:00 11/30/18 11:00 11/30/18 11:00 11/30/18 10:00 General appearance: Present: no acute distress - EENT Eyes: Present: PERRL, EOM intact ENT: hearing intact, clear oral mucosa, dentition normal - Neck Neck: Present: supple, normal ROM - Respiratory Respiratory effort: normal Respiratory: bilateral: CTA - Cardiovascular Rhythm: regular Heart Sounds: Present: S1 & S2. Absent: gallop, rub - Extremities Extremities: no ischemia, No edema, Full ROM - Abdominal General gastrointestinal: soft, non-tender, non-distended, normal bowel sounds - Integumentary Integumentary: Present: clear, warm, dry - Neurologic Neurologic: CNII-XII intact, moves all extremities Results - Labs CBC & Chem 7: 11/30/18 09:54 11/30/18 09:54 Labs: Laboratory Last Values WBC 9.6 K/mm3 (4.5-11.0) 11/30/18 09:54 RBC 4.70 M/mm3 (3.65-5.03) 11/30/18 09:54 Hgb 14.4 gm/dl (11.8-15.2) D 11/30/18 09:54 Hct 41.1 % (35.5-45.6) D 11/30/18 09:54 MCV 87 fl (84-94) 11/30/18 09:54 MCH 31 pg (28-32) 11/30/18 09:54 MCHC 35 % (32-34) H 11/30/18 09:54 RDW 14.2 % (13.2-15.2) 11/30/18 09:54 Plt Count 133 K/mm3 (140-440) L 11/30/18 09:54 Add Manual Diff Complete 11/28/18 17:54 Total Counted 100 11/28/18 17:54 Seg Neuts % (Manual) 88.0 % (40.0-70.0) H 11/28/18 17:54 Band Neutrophils % 2.0 % 11/28/18 17:54 Lymphocytes % (Manual) 8.0 % (13.4-35.0) L 11/28/18 17:54 Reactive Lymphs % (Man) 0 % 11/28/18 17:54 Monocytes % (Manual) 1.0 % (0.0-7.3) 11/28/18 17:54 Eosinophils % (Manual) 0 % (0.0-4.3) 11/28/18 17:54 Basophils % (Manual) 0 % (0.0-1.8) 11/28/18 17:54 Metamyelocytes % 1.0 % 11/28/18 17:54 Myelocytes % 0 % 11/28/18 17:54 Promyelocytes % 0 % 11/28/18 17:54 Blast Cells % 0 % 11/28/18 17:54 Nucleated RBC % Not Reportable 11/28/18 17:54 Seg Neutrophils # Man 14.7 K/mm3 (1.8-7.7) H 11/28/18 17:54 Band Neutrophils # 0.3 K/mm3 11/28/18 17:54 Lymphocytes # (Manual) 1.3 K/mm3 (1.2-5.4) 11/28/18 17:54 Abs React Lymphs (Man) 0.0 K/mm3 11/28/18 17:54 Monocytes # (Manual) 0.2 K/mm3 (0.0-0.8) 11/28/18 17:54 Eosinophils # (Manual) 0.0 K/mm3 (0.0-0.4) 11/28/18 17:54 Basophils # (Manual) 0.0 K/mm3 (0.0-0.1) 11/28/18 17:54 Metamyelocytes # 0.2 K/mm3 11/28/18 17:54 Myelocytes # 0.0 K/mm3 11/28/18 17:54 Promyelocytes # 0.0 K/mm3 11/28/18 17:54 Blast Cells # 0.0 K/mm3 11/28/18 17:54 WBC Morphology Not Reportable 11/28/18 17:54 Hypersegmented Neuts Not Reportable 11/28/18 17:54 Hyposegmented Neuts Not Reportable 11/28/18 17:54 Hypogranular Neuts Not Reportable 11/28/18 17:54 Smudge Cells Not Reportable 11/28/18 17:54 Toxic Granulation Not Reportable 11/28/18 17:54 Toxic Vacuolation Not Reportable 11/28/18 17:54 Dohle Bodies Not Reportable 11/28/18 17:54 Pelger-Huet Anomaly Not Reportable 11/28/18 17:54 Eliezer Rods Not Reportable 11/28/18 17:54 Platelet Estimate Consistent w auto 11/28/18 17:54 Clumped Platelets Not Reportable 11/28/18 17:54 Plt Clumps, EDTA Not Reportable 11/28/18 17:54 Large Platelets 1+ 11/28/18 17:54 Giant Platelets Not Reportable 11/28/18 17:54 Platelet Satelliting Not Reportable 11/28/18 17:54 Plt Morphology Comment Not Reportable 11/28/18 17:54 RBC Morphology Normal 11/28/18 17:54 Dimorphic RBCs Not Reportable 11/28/18 17:54 Polychromasia Not Reportable 11/28/18 17:54 Hypochromasia Not Reportable 11/28/18 17:54 Poikilocytosis Not Reportable 11/28/18 17:54 Anisocytosis Not Reportable 11/28/18 17:54 Microcytosis Not Reportable 11/28/18 17:54 Macrocytosis Not Reportable 11/28/18 17:54 Spherocytes Not Reportable 11/28/18 17:54 Pappenheimer Bodies Not Reportable 11/28/18 17:54 Sickle Cells Not Reportable 11/28/18 17:54 Target Cells Not Reportable 11/28/18 17:54 Tear Drop Cells Not Reportable 11/28/18 17:54 Ovalocytes Not Reportable 11/28/18 17:54 Helmet Cells Not Reportable 11/28/18 17:54 Bernal-Whitmer Bodies Not Reportable 11/28/18 17:54 [place] Rings Not Reportable 11/28/18 17:54 Sebas Cells Not Reportable 11/28/18 17:54 Bite Cells Not Reportable 11/28/18 17:54 Crenated Cell Not Reportable 11/28/18 17:54 Elliptocytes Not Reportable 11/28/18 17:54 Acanthocytes (Spur) Not Reportable 11/28/18 17:54 Rouleaux Not Reportable 11/28/18 17:54 Hemoglobin C Crystals Not Reportable 11/28/18 17:54 Schistocytes Not Reportable 11/28/18 17:54 Malaria parasites Not Reportable 11/28/18 17:54 Josias Bodies Not Reportable 11/28/18 17:54 Hem Pathologist Commnt No 11/28/18 17:54 PT 15.3 Sec. (12.2-14.9) H 11/28/18 18:20 INR 1.14 (0.87-1.13) H 11/28/18 18:20 VBG pH 7.108 (7.320-7.420) L* 11/28/18 17:54 Sodium 142 mmol/L (137-145) 11/30/18 09:54 Potassium 3.7 mmol/L (3.6-5.0) 11/30/18 09:54 Chloride 106.8 mmol/L (98-107) 11/30/18 09:54 Carbon Dioxide 22 mmol/L (22-30) 11/30/18 09:54 Anion Gap 17 mmol/L 11/30/18 09:54 BUN 18 mg/dL (9-20) 11/30/18 09:54 Creatinine 1.0 mg/dL (0.8-1.5) 11/30/18 09:54 Estimated GFR > 60 ml/min 11/30/18 09:54 BUN/Creatinine Ratio 18 % 11/30/18 09:54 Glucose 126 mg/dL (75-100) H 11/30/18 09:54 POC Glucose 151 (70-105) H 11/30/18 11:24 Lactic Acid 1.90 mmol/L (0.7-2.0) 11/29/18 15:27 Calcium 9.0 mg/dL (8.4-10.2) 11/30/18 09:54 Phosphorus 4.80 mg/dL (2.5-4.5) H 11/28/18 21:40 Magnesium 2.40 mg/dL (1.7-2.3) H 11/28/18 21:40 Total Bilirubin 0.90 mg/dL (0.1-1.2) 11/28/18 17:54 AST 15 units/L (5-40) 11/28/18 17:54 ALT 13 units/L (7-56) 11/28/18 17:54 Alkaline Phosphatase 118 units/L (35-129) 11/28/18 17:54 Total Creatine Kinase 39 units/L (55-170) L 11/28/18 18:20 Troponin T < 0.010 ng/mL (0.00-0.029) 11/28/18 23:19 Total Protein 8.7 g/dL (6.3-8.2) H 11/28/18 17:54 Albumin 4.4 g/dL (3.9-5) 11/28/18 17:54 Albumin/Globulin Ratio 1.0 % 11/28/18 17:54 TSH 1.630 mlU/mL (0.270-4.200) 11/28/18 18:20 Urine Color Straw (Yellow) 11/28/18 19:30 Urine Turbidity Slightly-cloudy (Clear) 11/28/18 19:30 Urine pH 5.0 (5.0-7.0) 11/28/18 19:30 Ur Specific [place] 1.018 (1.003-1.030) 11/28/18 19:30 Urine Protein <15 mg/dl mg/dL (Negative) 11/28/18 19:30 Urine Glucose (UA) >=500 mg/dL (Negative) 11/28/18 19:30 Urine Ketones 20 mg/dL (Negative) 11/28/18 19:30 Urine Blood Sm (Negative) 11/28/18 19:30 Urine Nitrite Neg (Negative) 11/28/18 19: Urine Bilirubin Neg (Negative) 11/28/18 19: Urine Urobilinogen < 2.0 mg/dL (<2.0) 11/28/18 19:30 Ur Leukocyte Esterase Sm (Negative) 11/28/18 19:30 Urine WBC (Auto) 17.0 /HPF (0.0-6.0) H 11/28/18 19:30 Urine RBC (Auto) 8.0 /HPF (0.0-6.0) 11/28/18 19:30 U Epithel Cells (Auto) 1.0 /HPF (0-13.0) 11/28/18 19:30 Urine Bacteria (Auto) 2+ /HPF (Negative) 11/28/18 19:30 Urine Mucus Few /HPF 11/28/18 19:30 Urine Yeast (Budding) 1+ /HPF 11/28/18 19:30
[2018-11-30] MEDS ORDERED: PNEUMOVAX 23 IM ONE (12:00)
[2018-11-30] MEDS ORDERED: AFLURIA QUAD 2018-2019 SYRINGE IM ONE (12:00)
[2018-11-30] MEDS: NACL 0.9% 1000 ML 1,000 ML IV SCH (13:08)
[2018-11-30] MEDS: LOVENOX SUB-Q SCH (13:09)
[2018-12-01] MEDS: ZOSYN/NS 2.25 GM/50ML 2.25 GM/50 ML BAG IV SCH ×2 (00:19→06:29)
[2018-12-01] MEDS: COZAAR PO SCH (09:08)
[2018-12-01] MEDS: LOVENOX SUB-Q SCH (09:10)
--- NOTE | 2018-12-01 13:44 | Progress Note ---
Assessment and Plan Assessment and plan: Severe Sepsis. Resolving. Etiology secondary to UTI. UA reveals 17 WBCs. Follow-up blood and urine cultures. Continue IV antibiotics. Patient with elevated lactic acid. Continue to trend lactic acid levels. UTI. As above. ? Phimosis. Consult Urology Toxic metabolic encephalopathy. Resolving. Continue to treat underlying causes. Patient does appear to have a history of underlying dementia. DKA. Transition to long-acting insulin with 70/30 insulin 25 units twice a day. The patient will receive a dose now and start regimen in the evening. Insulin drip has been discontinued. Hypertension. Resume antihypertensive medications. Gastroesophageal reflux disease. Continue PPI. Disposition. Patient will be transferred to the floor. History Interval history: No new issues overnight. is at bedside. Patient appears to be back to baseline with regards to mental status. Hospitalist Physical - Constitutional Vitals: Temp Pulse Resp BP Pulse Ox 98.3 F 85 16 113/74 98 12/01/18 07:30 12/01/18 09:08 12/01/18 07:30 12/01/18 09:08 12/01/18 07:30 General appearance: Present: no acute distress - EENT Eyes: Present: PERRL, EOM intact ENT: hearing intact, clear oral mucosa, dentition normal - Neck Neck: Present: supple, normal ROM - Respiratory Respiratory effort: normal Respiratory: bilateral: CTA - Cardiovascular Rhythm: regular Heart Sounds: Present: S1 & S2. Absent: gallop, rub - Extremities Extremities: no ischemia, No edema, Full ROM - Abdominal General gastrointestinal: soft, non-tender, non-distended, normal bowel sounds - Integumentary Integumentary: Present: clear, warm, dry - Neurologic Neurologic: CNII-XII intact, moves all extremities Results - Labs CBC & Chem 7: 11/30/18 09:54 11/30/18 09:54 Labs: Laboratory Last Values WBC 9.6 K/mm3 (4.5-11.0) 11/30/18 09:54 RBC 4.70 M/mm3 (3.65-5.03) 11/30/18 09:54 Hgb 14.4 gm/dl (11.8-15.2) D 11/30/18 09:54 Hct 41.1 % (35.5-45.6) D 11/30/18 09:54 MCV 87 fl (84-94) 11/30/18 09:54 MCH 31 pg (28-32) 11/30/18 09:54 MCHC 35 % (32-34) H 11/30/18 09:54 RDW 14.2 % (13.2-15.2) 11/30/18 09:54 Plt Count 133 K/mm3 (140-440) L 11/30/18 09:54 Add Manual Diff Complete 11/28/18 17:54 Total Counted 100 11/28/18 17:54 Seg Neuts % (Manual) 88.0 % (40.0-70.0) H 11/28/18 17:54 Band Neutrophils % 2.0 % 11/28/18 17:54 Lymphocytes % (Manual) 8.0 % (13.4-35.0) L 11/28/18 17:54 Reactive Lymphs % (Man) 0 % 11/28/18 17:54 Monocytes % (Manual) 1.0 % (0.0-7.3) 11/28/18 17:54 Eosinophils % (Manual) 0 % (0.0-4.3) 11/28/18 17:54 Basophils % (Manual) 0 % (0.0-1.8) 11/28/18 17:54 Metamyelocytes % 1.0 % 11/28/18 17:54 Myelocytes % 0 % 11/28/18 17:54 Promyelocytes % 0 % 11/28/18 17:54 Blast Cells % 0 % 11/28/18 17:54 Nucleated RBC % Not Reportable 11/28/18 17:54 Seg Neutrophils # Man 14.7 K/mm3 (1.8-7.7) H 11/28/18 17:54 Band Neutrophils # 0.3 K/mm3 11/28/18 17:54 Lymphocytes # (Manual) 1.3 K/mm3 (1.2-5.4) 11/28/18 17:54 Abs React Lymphs (Man) 0.0 K/mm3 11/28/18 17:54 Monocytes # (Manual) 0.2 K/mm3 (0.0-0.8) 11/28/18 17:54 Eosinophils # (Manual) 0.0 K/mm3 (0.0-0.4) 11/28/18 17:54 Basophils # (Manual) 0.0 K/mm3 (0.0-0.1) 11/28/18 17:54 Metamyelocytes # 0.2 K/mm3 11/28/18 17:54 Myelocytes # 0.0 K/mm3 11/28/18 17:54 Promyelocytes # 0.0 K/mm3 11/28/18 17:54 Blast Cells # 0.0 K/mm3 11/28/18 17:54 WBC Morphology Not Reportable 11/28/18 17:54 Hypersegmented Neuts Not Reportable 11/28/18 17:54 Hyposegmented Neuts Not Reportable 11/28/18 17:54 Hypogranular Neuts Not Reportable 11/28/18 17:54 Smudge Cells Not Reportable 11/28/18 17:54 Toxic Granulation Not Reportable 11/28/18 17:54 Toxic Vacuolation Not Reportable 11/28/18 17:54 Dohle Bodies Not Reportable 11/28/18 17:54 Pelger-Huet Anomaly Not Reportable 11/28/18 17:54 Eliezer Rods Not Reportable 11/28/18 17:54 Platelet Estimate Consistent w auto 11/28/18 17:54 Clumped Platelets Not Reportable 11/28/18 17:54 Plt Clumps, EDTA Not Reportable 11/28/18 17:54 Large Platelets 1+ 11/28/18 17:54 Giant Platelets Not Reportable 11/28/18 17:54 Platelet Satelliting Not Reportable 11/28/18 17:54 Plt Morphology Comment Not Reportable 11/28/18 17:54 RBC Morphology Normal 11/28/18 17:54 Dimorphic RBCs Not Reportable 11/28/18 17:54 Polychromasia Not Reportable 11/28/18 17:54 Hypochromasia Not Reportable 11/28/18 17:54 Poikilocytosis Not Reportable 11/28/18 17:54 Anisocytosis Not Reportable 11/28/18 17:54 Microcytosis Not Reportable 11/28/18 17:54 Macrocytosis Not Reportable 11/28/18 17:54 Spherocytes Not Reportable 11/28/18 17:54 Pappenheimer Bodies Not Reportable 11/28/18 17:54 Sickle Cells Not Reportable 11/28/18 17:54 Target Cells Not Reportable 11/28/18 17:54 Tear Drop Cells Not Reportable 11/28/18 17:54 Ovalocytes Not Reportable 11/28/18 17:54 Helmet Cells Not Reportable 11/28/18 17:54 [place] Bodies Not Reportable 11/28/18 17:54 [place] Rings Not Reportable 11/28/18 17:54 [place] Cells Not Reportable 11/28/18 17:54 Bite Cells Not Reportable 11/28/18 17:54 Crenated Cell Not Reportable 11/28/18 17:54 Elliptocytes Not Reportable 11/28/18 17:54 Acanthocytes (Spur) Not Reportable 11/28/18 17:54 Rouleaux Not Reportable 11/28/18 17:54 Hemoglobin C Crystals Not Reportable 11/28/18 17:54 Schistocytes Not Reportable 11/28/18 17:54 Malaria parasites Not Reportable 11/28/18 17:54 Josias Bodies Not Reportable 11/28/18 17:54 Hem Pathologist Commnt No 11/28/18 17:54 PT 15.3 Sec. (12.2-14.9) H 11/28/18 18:20 INR 1.14 (0.87-1.13) H 11/28/18 18:20 VBG pH 7.108 (7.320-7.420) L* 11/28/18 17:54 Sodium 142 mmol/L (137-145) 11/30/18 09:54 Potassium 3.7 mmol/L (3.6-5.0) 11/30/18 09:54 Chloride 106.8 mmol/L (98-107) 11/30/18 09:54 Carbon Dioxide 22 mmol/L (22-30) 11/30/18 09:54 Anion Gap 17 mmol/L 11/30/18 09:54 BUN 18 mg/dL (9-20) 11/30/18 09:54 Creatinine 1.0 mg/dL (0.8-1.5) 11/30/18 09:54 Estimated GFR > 60 ml/min 11/30/18 09:54 BUN/Creatinine Ratio 18 % 11/30/18 09:54 Glucose 126 mg/dL (75-100) H 11/30/18 09:54 POC Glucose 308 (70-105) H 12/01/18 11:25 Hemoglobin A1c 14.0 % (4-6) H 11/30/18 09:45 Lactic Acid 1.90 mmol/L (0.7-2.0) 11/29/18 15:27 Calcium 9.0 mg/dL (8.4-10.2) 11/30/18 09:54 Phosphorus 4.80 mg/dL (2.5-4.5) H 11/28/18 21:40 Magnesium 2.40 mg/dL (1.7-2.3) H 11/28/18 21:40 Total Bilirubin 0.90 mg/dL (0.1-1.2) 11/28/18 17:54 AST 15 units/L (5-40) 11/28/18 17:54 ALT 13 units/L (7-56) 11/28/18 17:54 Alkaline Phosphatase 118 units/L (35-129) 11/28/18 17:54 Total Creatine Kinase 39 units/L (55-170) L 11/28/18 18:20 Troponin T < 0.010 ng/mL (0.00-0.029) 11/28/18 23:19 C-Reactive Protein 0.30 mg/dL (0.00-1.30) 11/30/18 12:58 Total Protein 8.7 g/dL (6.3-8.2) H 11/28/18 17:54 Albumin 4.4 g/dL (3.9-5) 11/28/18 17:54 Albumin/Globulin Ratio 1.0 % 11/28/18 17:54 TSH 1.630 mlU/mL (0.270-4.200) 11/28/18 18:20 Urine Color Straw (Yellow) 11/28/18 19:30 Urine Turbidity Slightly-cloudy (Clear) 11/28/18 19:30 Urine pH 5.0 (5.0-7.0) 11/28/18 19:30 Ur Specific [place] 1.018 (1.003-1.030) 11/28/18 19:30 Urine Protein <15 mg/dl mg/dL (Negative) 11/28/18 19:30 Urine Glucose (UA) >=500 mg/dL (Negative) 11/28/18 19:30 Urine Ketones 20 mg/dL (Negative) 11/28/18 19:30 Urine Blood Sm (Negative) 11/28/18 19:30 Urine Nitrite Neg (Negative) 11/28/18 19:30 Urine Bilirubin Neg (Negative) 11/28/18 19:30 Urine Urobilinogen < 2.0 mg/dL (<2.0) 11/28/18 19:30 Ur Leukocyte Esterase Sm (Negative) 11/28/18 19:30 Urine WBC (Auto) 17.0 /HPF (0.0-6.0) H 11/28/18 19:30 Urine RBC (Auto) 8.0 /HPF (0.0-6.0) 11/28/18 19:30 U Epithel Cells (Auto) 1.0 /HPF (0-13.0) 11/28/18 19:30 Urine Bacteria (Auto) 2+ /HPF (Negative) 11/28/18 19:30 Urine Mucus Few /HPF 11/28/18 19:30 Urine Yeast (Budding) 1+ /HPF 11/28/18 19:30 Nutrition/Malnutrition Assess - Dietary Evaluation Nutrition/Malnutrition Findings: Nutrition Notes Start: 11/30/18 15:21 Freq: Status: Active Protocol: Document 11/30/18 15:21 CT (Rec: 11/30/18 15:47 CT [id number]) Co-Sign 11/30/18 15:21 RM Nutrition Notes Need for Assessment generated from: MD Order Education Initial or Follow up Brief Note Current Diagnosis Diabetes Other Pertinent Diagnosis DKA Current Diet Consistent CHO Labs/Tests B A1C: 14 Pertinent Medications insulin Height 6 ft 2 in Weight 76.3 kg [place] Body Weight (kg) 86.36 BMI 21.6 Subjective/Other Information RD consulted for diet education. Delivered DM/CHO education to pt and pt's who was at bedside. Burn Absent Trauma Absent #1 Nutrition Diagnosis Limited adherence to nutrition -related recommendations Etiology pt not seeing value in adhering to recommendations As Evidenced by Signs and Symptoms pt reports continuing to be noncompliant. Nutrition Intervention Teaching Recipient Patient Family Learning Readiness Fair Teaching Methods Discussion Handout Response to Teaching Verbalize understanding Education Handouts Provided Sx of hyper/hypoglycemia, Follow up/DM class flyer. Barriers to Learning Motivation Age related Financial RD phone number provided Yes Patient aware of follow up options Yes Goal #1 Adherence to nutrition recommendations Goal #2 Improved glycemic control Anticipated Discharge Needs: Consistent CHO Revisit per MD consult or patient Sign Off request:
--- NOTE | 2018-12-01 14:03 | Progress Note ---
Assessment and Plan Sepsis Syndrome (Likely secondary to UTI) DKA UTI Acute Encephalopathy (Toxic-Metabolic) HTN GERD - continue long acting insulin - continue SSI for target BG 140 - 180 mg/dl - wean supplemental oxygen as needed to keep sats > 90% - continue GI & VTE prophylaxis - PT/OT as tolerated - better medication compliance counseled - continue chronic disease medications per attending - continue empiric AB's and de-escalate based on clinical and microbiologic data - continue other care per attending / other consultants ... re-evaluate in am & prn Subjective Date of service: 12/01/18 Principal diagnosis: Sepsis Syndrome; DKA; UTI; Acute Encephalopathy (Toxic- Metabolic); HTN Interval history: Patient is seen today for: Sepsis Syndrome (Likely secondary to UTI); DKA; UTI; Acute Encephalopathy (Toxic-Metabolic); HTN Seen and examined at bedside; 24hour events reviewed; nursing and respiratory c are staff consulted; no adverse overnight events reported to me; resting peacefully in bed; looks and feels better; No N/V/F/C Objective Vital Signs - 12hr 12/01/18 12/01/18 12/01/18 07:30 09:08 13:15 Temperature 98.3 F 98.5 F Pulse Rate 85 85 103 H Respiratory 16 18 Rate Blood Pressure 113/74 113/74 103/65 O2 Sat by Pulse 98 98 Oximetry Constitutional: no acute distress, alert, other (elderly looking AAM, normocephalic and atraumatic with mildly increased respiratory effort at rest) Eyes: non-icteric ENT: oropharynx moist, other (mallampati 2) Neck: supple, no lymphadenopathy, no JVD Effort: mildly labored Ascultation: Bilateral: diminished breath sounds, rhonchi (scant) Percussion: Bilateral: not dull Cardiovascular: regular rate and rhythm Gastrointestinal: normoactive bowel sounds, soft, non-tender, non-distended Integumentary: normal Extremities: no cyanosis, no edema, pulses normal, no ischemia or petechiae Neurologic: non-focal exam, pupils equal and round, CN II-XII normal, motor strength normal and Psychiatric: mood appropriate, affect normal CBC and BMP: 12/02/18 04:26 12/02/18 04:26 ABG, PT/INR, D-dimer: PT/INR, D-dimer PT 15.3 Sec. (12.2-14.9) H 11/28/18 18:20 INR 1.14 (0.87-1.13) H 11/28/18 18:20 Abnormal lab findings: Abnormal Labs 11/28/18 11/28/18 11/28/18 17:18 17:54 17:54 WBC 16.7 H RBC 5.79 H Hgb 17.4 H Hct 54.5 H MCHC Plt Count Seg Neuts % (Manual) 88.0 H Lymphocytes % (Manual) 8.0 L Seg Neutrophils # Man 14.7 H PT INR VBG pH Sodium 130 L Potassium 5.8 H Chloride 84.7 L Carbon Dioxide 8 L* BUN 41 H Creatinine 2.2 H Glucose 821 H* POC Glucose > 500 H Hemoglobin A1c Lactic Acid Calcium Phosphorus Magnesium Total Creatine Kinase Total Protein 8.7 H Urine WBC (Auto) 11/28/18 11/28/18 11/28/18 17:54 18:20 18:20 WBC RBC Hgb Hct MCHC Plt Count Seg Neuts % (Manual) Lymphocytes % (Manual) Seg Neutrophils # Man PT 15.3 H INR 1.14 H VBG pH 7.108 L* Sodium Potassium Chloride Carbon Dioxide BUN Creatinine Glucose POC Glucose Hemoglobin A1c Lactic Acid Calcium Phosphorus Magnesium 2.90 H Total Creatine Kinase 39 L Total Protein Urine WBC (Auto) 11/28/18 11/28/18 11/28/18 19:30 20:55 21:40 WBC RBC Hgb Hct MCHC Plt Count Seg Neuts % (Manual) Lymphocytes % (Manual) Seg Neutrophils # Man PT INR VBG pH Sodium Potassium 5.5 H Chloride Carbon Dioxide 11 L BUN 38 H Creatinine 1.6 H Glucose 438 H POC Glucose 432 H Hemoglobin A1c Lactic Acid Calcium 8.1 L D Phosphorus Magnesium Total Creatine Kinase Total Protein Urine WBC (Auto) 17.0 H 11/28/18 11/28/18 11/28/18 21:40 21:40 22:23 WBC RBC Hgb Hct MCHC Plt Count Seg Neuts % (Manual) Lymphocytes % (Manual) Seg Neutrophils # Man PT INR VBG pH Sodium Potassium Chloride Carbon Dioxide BUN Creatinine Glucose POC Glucose 401 H Hemoglobin A1c Lactic Acid 3.80 H* Calcium Phosphorus 4.80 H Magnesium 2.40 H Total Creatine Kinase Total Protein Urine WBC (Auto) 02/11/28/18 11/28/18 23:19 23:19 23:55 WBC RBC Hgb Hct MCHC Plt Count Seg Neuts % (Manual) Lymphocytes % (Manual) Seg Neutrophils # Man PT INR VBG pH Sodium Potassium Chloride Carbon Dioxide 10 L 8 L* BUN 37 H 36 H Creatinine 1.6 H Glucose 380 H 305 H POC Glucose Hemoglobin A1c Lactic Acid 3.00 H* Calcium Phosphorus Magnesium Total Creatine Kinase Total Protein Urine WBC (Auto) 11/28/18 11/29/18 11/29/18 23:55 00:04 01:29 WBC RBC Hgb Hct MCHC Plt Count Seg Neuts % (Manual) Lymphocytes % (Manual) Seg Neutrophils # Man PT INR VBG pH Sodium 146 H Potassium Chloride 108.2 H Carbon Dioxide 12 L BUN 34 H Creatinine Glucose 175 H POC Glucose 294 H Hemoglobin A1c Lactic Acid 2.60 H* Calcium Phosphorus Magnesium Total Creatine Kinase Total Protein Urine WBC (Auto) 11/29/18 11/29/18 11/29/18 01:29 01:30 03:39 WBC RBC Hgb Hct MCHC Plt Count Seg Neuts % (Manual) Lymphocytes % (Manual) Seg Neutrophils # Man PT INR VBG pH Sodium Potassium Chloride Carbon Dioxide BUN Creatinine Glucose POC Glucose 227 H 192 H Hemoglobin A1c Lactic Acid 2.50 H* Calcium Phosphorus Magnesium Total Creatine Kinase Total Protein Urine WBC (Auto) 11/29/18 11/29/18 11/29/18 03:52 03:52 05:43 WBC RBC Hgb Hct MCHC Plt Count Seg Neuts % (Manual) Lymphocytes % (Manual) Seg Neutrophils # Man PT INR VBG pH Sodium 147 H Potassium Chloride 107.1 H Carbon Dioxide 15 L BUN 34 H Creatinine Glucose 189 H POC Glucose 286 H Hemoglobin A1c Lactic Acid 3.00 H* Calcium Phosphorus Magnesium Total Creatine Kinase Total Protein Urine WBC (Auto) 11/29/18 11/29/18 11/29/18 05:50 07:34 08:36 WBC RBC Hgb Hct MCHC Plt Count Seg Neuts % (Manual) Lymphocytes % (Manual) Seg Neutrophils # Man PT INR VBG pH Sodium Potassium Chloride Carbon Dioxide BUN Creatinine Glucose POC Glucose 267 H Hemoglobin A1c Lactic Acid 2.40 H* 4.00 H* Calcium Phosphorus Magnesium Total Creatine Kinase Total Protein Urine WBC (Auto) 11/29/18 11/29/18 11/29/18 08:44 09:52 10:43 WBC RBC Hgb Hct MCHC Plt Count Seg Neuts % (Manual) Lymphocytes % (Manual) Seg Neutrophils # Man PT INR VBG pH Sodium 146 H Potassium Chloride 107.9 H Carbon Dioxide 19 L BUN 34 H Creatinine Glucose 214 H POC Glucose 214 H 207 H Hemoglobin A1c Lactic Acid Calcium Phosphorus Magnesium Total Creatine Kinase Total Protein Urine WBC (Auto) 11/29/18 11/29/18 11/29/18 10:43 11:03 12:05 WBC RBC Hgb Hct MCHC Plt Count Seg Neuts % (Manual) Lymphocytes % (Manual) Seg Neutrophils # Man PT INR VBG pH Sodium Potassium Chloride Carbon Dioxide BUN Creatinine Glucose POC Glucose 205 H 221 H Hemoglobin A1c Lactic Acid 3.30 H* Calcium Phosphorus Magnesium Total Creatine Kinase Total Protein Urine WBC (Auto) 11/29/18 11/29/18 11/29/18 13:08 14:06 14:09 WBC RBC Hgb Hct MCHC Plt Count Seg Neuts % (Manual) Lymphocytes % (Manual) Seg Neutrophils # Man PT INR VBG pH Sodium Potassium Chloride Carbon Dioxide BUN Creatinine Glucose POC Glucose 199 H 185 H Hemoglobin A1c Lactic Acid 3.30 H* Calcium Phosphorus Magnesium Total Creatine Kinase Total Protein Urine WBC (Auto) 11/29/18 11/29/18 11/29/18 15:14 17:23 18:23 WBC RBC Hgb Hct MCHC Plt Count Seg Neuts % (Manual) Lymphocytes % (Manual) Seg Neutrophils # Man PT INR VBG pH Sodium Potassium Chloride Carbon Dioxide BUN Creatinine Glucose POC Glucose 259 H 239 H 205 H Hemoglobin A1c Lactic Acid Calcium Phosphorus Magnesium Total Creatine Kinase Total Protein Urine WBC (Auto) 11/29/18 11/29/18 11/29/18 19:36 20:05 20:10 WBC RBC Hgb Hct MCHC Plt Count Seg Neuts % (Manual) Lymphocytes % (Manual) Seg Neutrophils # Man PT INR VBG pH Sodium Potassium Chloride 107.6 H Carbon Dioxide 19 L BUN 25 H Creatinine Glucose 192 H POC Glucose 217 H 190 H Hemoglobin A1c Lactic Acid Calcium Phosphorus Magnesium Total Creatine Kinase Total Protein Urine WBC (Auto) 11/29/18 11/29/18 11/29/18 21:03 22:14 23:19 WBC RBC Hgb Hct MCHC Plt Count Seg Neuts % (Manual) Lymphocytes % (Manual) Seg Neutrophils # Man PT INR VBG pH Sodium Potassium Chloride Carbon Dioxide BUN Creatinine Glucose POC Glucose 178 H 133 H 116 H Hemoglobin A1c Lactic Acid Calcium Phosphorus Magnesium Total Creatine Kinase Total Protein Urine WBC (Auto) 11/30/18 11/30/18 11/30/18 00:21 01:08 02:39 WBC RBC Hgb Hct MCHC Plt Count Seg Neuts % (Manual) Lymphocytes % (Manual) Seg Neutrophils # Man PT INR VBG pH Sodium Potassium Chloride Carbon Dioxide BUN Creatinine Glucose POC Glucose 122 H 117 H 121 H Hemoglobin A1c Lactic Acid Calcium Phosphorus Magnesium Total Creatine Kinase Total Protein Urine WBC (Auto) 11/30/18 11/30/18 11/30/18 03:45 04:34 05:05 WBC RBC Hgb Hct MCHC Plt Count Seg Neuts % (Manual) Lymphocytes % (Manual) Seg Neutrophils # Man PT INR VBG pH Sodium Potassium Chloride Carbon Dioxide BUN Creatinine Glucose POC Glucose 130 H 125 H 128 H Hemoglobin A1c Lactic Acid Calcium Phosphorus Magnesium Total Creatine Kinase Total Protein Urine WBC (Auto) 11/30/18 11/30/18 11/30/18 06:45 07:39 09:06 WBC RBC Hgb Hct MCHC Plt Count Seg Neuts % (Manual) Lymphocytes % (Manual) Seg Neutrophils # Man PT INR VBG pH Sodium Potassium Chloride Carbon Dioxide BUN Creatinine Glucose POC Glucose 133 H 130 H 119 H Hemoglobin A1c Lactic Acid Calcium Phosphorus Magnesium Total Creatine Kinase Total Protein Urine WBC (Auto) 11/30/18 11/30/18 11/30/18 09:45 09:54 09:54 WBC RBC Hgb Hct MCHC 35 H Plt Count 133 L Seg Neuts % (Manual) Lymphocytes % (Manual) Seg Neutrophils # Man PT INR VBG pH Sodium Potassium Chloride Carbon Dioxide BUN Creatinine Glucose 126 H POC Glucose Hemoglobin A1c 14.0 H Lactic Acid Calcium Phosphorus Magnesium Total Creatine Kinase Total Protein Urine WBC (Auto) 11/30/18 11/30/18 11/30/18 10:21 11:24 16:19 WBC RBC Hgb Hct MCHC Plt Count Seg Neuts % (Manual) Lymphocytes % (Manual) Seg Neutrophils # Man PT INR VBG pH Sodium Potassium Chloride Carbon Dioxide BUN Creatinine Glucose POC Glucose 124 H 151 H 334 H Hemoglobin A1c Lactic Acid Calcium Phosphorus Magnesium Total Creatine Kinase Total Protein Urine WBC (Auto) 11/30/18 12/01/18 12/01/18 21:39 07:32 11:25 WBC RBC Hgb Hct MCHC Plt Count Seg Neuts % (Manual) Lymphocytes % (Manual) Seg Neutrophils # Man PT INR VBG pH Sodium Potassium Chloride Carbon Dioxide BUN Creatinine Glucose POC Glucose 239 H 226 H 308 H Hemoglobin A1c Lactic Acid Calcium Phosphorus Magnesium Total Creatine Kinase Total Protein Urine WBC (Auto) Allied health notes reviewed: nursing
[2018-12-01 17:18] LABS: Basophils % (Auto) 0.4 % (0.0-1.8); Eosinophils # (Auto) 0.1 K/mm3 (0.0-0.4); Hematocrit 32.6 % (35.5-45.6); Hemoglobin 11.5 gm/dl (11.8-15.2); Lymphocytes # (Auto) 1.5 K/mm3 (1.2-5.4); Lymphocytes % (Auto) 31.7 % (13.4-35.0); Mean Corpuscular HGB Conc 35 % (32-34); Mean Corpuscular Volume 88 fl (84-94); Monocytes # (Auto) 0.4 K/mm3 (0.0-0.8); Monocytes % (Auto) 7.5 % (0.0-7.3); Red Blood Count 3.71 M/mm3 (3.65-5.03); Red Cell Distribution Width 13.9 % (13.2-15.2)
[2018-12-01 17:21] LABS: Platelet Count 96 K/mm3 (140-440)
[2018-12-01 17:33] LABS: BUN/Creatinine Ratio 12; Blood Urea Nitrogen 11 mg/dL (9-20); Hemolysis Index 13
[2018-12-01] MEDS: SODIUM CHLORIDE FLUSH SYRINGE 10 ML IV SCH ×3 (18:13→22:36)
--- NOTE | 2018-12-01 18:26 | Consultation ---
History of Present Illness - Reason for Consult Consult date: 12/01/18 - History of Present Illness This is a 68-year-old gentleman with history of diabetes, reportedly noncompliant with medications as per his spouse, who presents to the emergency room with his spouse for weakness, thirst, malaise, fatigue. Symptoms are painless, constant, do not radiate anywhere, it did not appear to have exacerbating or relieving factors. son at bedside pt had prostate cancer treated with radiation (unknown doctors----in [place]) phimosis - unable to completely retract foreskin CTAP - prelim: no hydro, BPH (no prostate seeds) A/P Phimosis diabetes uti topical cream to foreskin f/u with us of previous urologist for re eval - may need circ Past History Past Medical History: arthritis, diabetes, GERD, other (SC Trait, Dementia) Past Surgical History: cholecystectomy Social history: , lives with family. denies: smoking, alcohol abuse, prescription drug abuse Family history: diabetes, hypertension Medications and Allergies Allergies Allergy/AdvReac Type Severity Reaction Status Date / Time No Known Allergies Allergy Verified 10/16/14 12:48 Home Medications Medication Instructions Recorded Confirmed Last Taken Type Losartan [Cozaar] 50 mg PO QDAY #30 tablet 12/19/17 11/29/18 Unknown Rx Metformin HCl [Glucophage] 1,000 mg PO BIDWM 11/29/18 11/29/18 Unknown History Active Meds: Active Medications Acetaminophen (Tylenol) 650 mg PO Q4H PRN PRN Reason: Pain MILD(1-3)/Fever >100.5/JONES Dextrose (D50w (25gm) Syringe) 50 ml IV PRN PRN PRN Reason: Hypoglycemia Enoxaparin Sodium (Lovenox) 40 mg SUB-Q QDAY@1000 [facility] Last Admin: 12/01/18 09:10 Dose: 40 mg Documented by: Sodium Chloride (Nacl 0.9% 1000 Ml) 1,000 mls @ 75 mls/hr IV DIRECT [facility] Last Admin: 11/30/18 13:08 Dose: 75 mls/hr Documented by: Insulin Human Isoph/Insulin Regular (Humulin 70/30) 25 unit SUB-Q BIDDIAB [facility] Last Admin: 12/01/18 18:14 Dose: 25 unit Documented by: Losartan Potassium (Cozaar) 50 mg PO QDAY [facility] Last Admin: 12/01/18 09:08 Dose: Not Given Documented by: Ondansetron HCl (Zofran) 4 mg IV Q8H PRN PRN Reason: Nausea And Vomiting Sodium Chloride (Sodium Chloride Flush Syringe 10 Ml) 10 ml IV BID [facility] Last Admin: 12/01/18 18:14 Dose: 10 ml Documented by: Sodium Chloride (Sodium Chloride Flush Syringe 10 Ml) 10 ml IV PRN PRN PRN Reason: LINE FLUSH Exam - Constitutional Vitals: Temp Pulse Resp BP Pulse Ox 98.5 F 103 H 18 103/65 98 12/01/18 13:15 12/01/18 13:15 12/01/18 13:15 12/01/18 13:15 12/01/18 13:15 Results - Labs CBC & Chem 7: 12/01/18 16:29 12/01/18 16:29 Labs: Abnormal lab results 11/30/18 12/01/18 12/01/18 Range/Units 21:39 07:32 11:25 Hgb (11.8-15.2) gm/dl Hct (35.5-45.6) % MCHC (32-34) % Plt Count (140-440) K/mm3 [place] % (Auto) (0.0-7.3) % Potassium (3.6-5.0) mmol/L Carbon Dioxide (22-30) mmol/L Glucose (75-100) mg/dL POC Glucose 239 H 226 H 308 H (70-105) Calcium (8.4-10.2) mg/dL 12/01/18 12/01/18 12/01/18 Range/Units 16:29 16:29 16:37 Hgb 11.5 L (11.8-15.2) gm/dl Hct 32.6 L D (35.5-45.6) % MCHC 35 H (32-34) % Plt Count 96 L (140-440) K/mm3 [place] % (Auto) 7.5 H (0.0-7.3) % Potassium 3.5 L (3.6-5.0) mmol/L Carbon Dioxide 21 L (22-30) mmol/L Glucose 260 H (75-100) mg/dL POC Glucose 253 H (70-105) Calcium 8.0 L (8.4-10.2) mg/dL
--- NOTE | 2018-12-01 20:43 | Cat Scan Report ---
FINAL REPORT PROCEDURE: CT ABDOMEN PELVIS WO CON TECHNIQUE: Computerized axial tomography of the abdomen and pelvis was performed without intravenous contrast. This study is performed without intravascular contrast material and its sensitivity for ab dominal and pelvic pathology, including neoplasms, inflammation, abscess, free fluid, thrombosis, art erial dissection and infarction, is reduced compared with a contrast enhanced study. HISTORY: RENAL INSUFF, UTI COMPARISON: No prior studies are available for comparison. FINDINGS: Lower Lung ravi: There is mild dependent atelectasis. Lung bases otherwise are clear. Upper Abdomen: Liver density is diffusely decreased consistent with fatty infiltration. No discrete l iver lesions are identified. The gallbladder is not visualized and may be surgically absent. The adre nal glands, the pancreas and the spleen are unremarkable. Kidneys, Ureters and Urinary bladder: No abnormalities are identified. There is no hydronephrosis. No renal masses or calculi are identified. There is thin nonspecific linear calcifications seen in the posterior inferior aspect of the urinary bladder. This measures approximately 1 millimeter by 1.5 arturo timeters. No associated mass is visualized. Retroperitoneum: Atherosclerotic changes are seen in the abdominal aorta. No aneurysm is visualized. Nonspecific subcentimeter lymph nodes are seen in the retroperitoneum. No pathologically enlarged lym ph nodes are identified. Bowel: Minimal diverticulosis seen left side of the colon without evidence of diverticulitis. No evid ence of bowel obstruction ascites or free intraperitoneal gas. Normal-appearing appendix is seen in t he right lower quadrant. Reproductive organs: Prostate gland does not appear to be significantly enlarged. Other: No acute bony abnormalities are seen. IMPRESSION: Fatty infiltration of the liver. Minimal colonic diverticulosis without evidence of diverticulitis. Thin linear nonspecific calcification posterior inferior aspect of the urinary bladder. Consider urol ogy consultation. Kidneys and ureter show no focal abnormalities. No masses or hydronephrosis are visualized..
[2018-12-01] MEDS: MYCOSTATIN TP SCH (22:39)
[2018-12-02 05:26] LABS: Basophils % (Auto) 0.6 % (0.0-1.8); Eosinophils # (Auto) 0.1 K/mm3 (0.0-0.4); Hematocrit 31.4 % (35.5-45.6); Hemoglobin 10.9 gm/dl (11.8-15.2); Lymphocytes # (Auto) 1.3 K/mm3 (1.2-5.4); Lymphocytes % (Auto) 34.6 % (13.4-35.0); Mean Corpuscular HGB Conc 35 % (32-34); Mean Corpuscular Volume 88 fl (84-94); Monocytes # (Auto) 0.3 K/mm3 (0.0-0.8); Monocytes % (Auto) 8.2 % (0.0-7.3); Red Blood Count 3.56 M/mm3 (3.65-5.03); Red Cell Distribution Width 14.1 % (13.2-15.2)
[2018-12-02 05:28] LABS: Platelet Count 82 K/mm3 (140-440)
[2018-12-02 05:47] LABS: BUN/Creatinine Ratio 11; Blood Urea Nitrogen 9 mg/dL (9-20); Calcium 7.8 mg/dL (8.4-10.2); Hemolysis Index 8
[2018-12-02] MEDS: NACL 0.9% 1000 ML 1,000 ML IV SCH (06:00)
[2018-12-02] MEDS: COZAAR PO SCH (09:29)
[2018-12-02] MEDS: SODIUM CHLORIDE FLUSH SYRINGE 10 ML IV SCH (09:30)
[2018-12-02] MEDS: LOVENOX SUB-Q SCH (09:30)
[2018-12-02] MEDS: MYCOSTATIN TP SCH (09:31)
--- NOTE | 2018-12-02 09:59 | Discharge Summary ---
Providers - Providers Date of Admission: 11/28/18 19:09 Date of discharge: 12/02/18 Attending physician: MATHEUS PHIPPS 11/28/18 17:52 Consult to Physician [CONS] Urgent Comment: Consulting Provider: TATIANA ANDRADE Physician Instructions: Reason For Exam: dka 11/29/18 13:19 Consult to Physician [CONS] Routine Comment: Consulting Provider: ELDER CULLEN Physician Instructions: Reason For Exam: phimosis, ulcerations 12/01/18 10:28 Physical Therapy Evaluation and Treat [CONS] Routine Comment: Reason For Exam: deconditioning Primary care physician: [employer] Hospitalization Reason for admission: dka Condition: Critical Hospital course: 68-year-old male who presented through the emergency department with diagnosis of severe sepsis secondary to UTI, DKA, hypertension and toxic metabolic encephalopathy. Patient was noted to be confused prior to admission with improvement of his mental status as underlying medical conditions resolved. Patient had urinalysis that reveals 17 WBCs but blood and urine cultures were found to be negative. Patient had initial lactic acid level was elevated that normalized. Patient was transitioned from IV insulin to long-acting insulin with 70/30 insulin 25 units twice a day that control blood sugar. Other complications on hospitalization included diagnosis of phimosis seen by urology in consultation. Patient underwent CT of the abdomen and pelvis that showed no hydronephrosis. Urology recommended topical cream for scan and follow-up with previous urologist as an outpatient. She is felt to have received maximal hospital benefit and will be discharged home. Dedicated discharge time 32 minutes. Disposition: - TO HOME OR SELFCARE Time spent for discharge: 32 - Discharge Diagnoses (1) UTI (urinary tract infection) Status: Acute (2) Phimosis Status: Acute (3) Encephalopathy Status: Acute (4) Sepsis Status: Acute Qualifiers: Sepsis type: sepsis due to unspecified organism Qualified Code(s): A41.9 - Sepsis, unspecified organism (5) DKA (diabetic ketoacidoses) Status: Acute (6) GERD (gastroesophageal reflux disease) Status: Chronic Qualifiers: Esophagitis presence: without esophagitis Qualified Code(s): K21.9 - Gastro-esophageal reflux disease without esophagitis (7) HLD (hyperlipidemia) Status: Chronic Qualifiers: Hyperlipidemia type: mixed hyperlipidemia Qualified Code(s): E78.2 - Mixed hyperlipidemia (8) HTN (hypertension) Status: Chronic Qualifiers: Hypertension type: essential hypertension Qualified Code(s): I10 - Essential (primary) hypertension Core Measure Documentation - Palliative Care Palliative Care/ Comfort Measures: Not Applicable - Core Measures Any of the following diagnoses?: none Exam - Constitutional Vitals: Temp Pulse Resp BP Pulse Ox 98.7 F 82 20 124/76 96 12/02/18 08:10 12/02/18 09:29 12/02/18 08:28 12/02/18 09:29 12/02/18 08:28 General appearance: Present: no acute distress, well-nourished - EENT Eyes: Present: PERRL ENT: hearing intact, clear oral mucosa - Neck Neck: Present: supple, normal ROM - Respiratory Respiratory effort: normal Respiratory: bilateral: CTA - Cardiovascular Heart Sounds: Present: S1 & S2. Absent: rub, click - Extremities Extremities: pulses symmetrical, No edema Peripheral Pulses: within normal limits - Abdominal General gastrointestinal: Present: soft, non-tender, non-distended, normal bowel sounds Male genitourinary: Present: normal - Integumentary Integumentary: Present: clear, warm, dry - Musculoskeletal Musculoskeletal: gait normal, strength equal bilaterally - Psychiatric Psychiatric: appropriate mood/affect, intact judgment & insight - Neurologic Neurologic: CNII-XII intact, moves all extremities Plan Activity: advance as tolerated Weight Bearing Status: Weight Bear as Tolerated Diet: diabetic Follow up with: PRIMARY MD ANSELMO [Primary Care Provider] - 7 Days ELDER CULLEN MD [Staff Physician] - 7 Days LILI SILVER MD [Staff Physician] - 7 Days Prescriptions: Ciprofloxacin HCl [Cipro] 500 mg PO BID #10 tablet Insulin NPH/Regular [NovoLIN 70/30] 25 unit SUB-Q BIDDIAB 30 Days units Losartan [Cozaar] 50 mg PO QDAY #30 tablet Metformin HCl [Glucophage] 1,000 mg PO BIDWM #60 tablet Nystatin Cream [Mycostatin Cream] 1 applic TP BID 30 Days tube
[2018-12-02] MEDS ORDERED: HumaLOG SUB-Q SCH (11:57)
--- NOTE | 2018-12-02 13:40 | Progress Note ---
Assessment and Plan Sepsis Syndrome (Likely secondary to UTI) DKA UTI Acute Encephalopathy (Toxic-Metabolic) HTN GERD - continue long acting insulin - continue SSI for target BG 140 - 180 mg/dl - supplemental oxygen as neded to keep sats > 90% - CRP unremarkable and Ab's de-escalated - add GI & VTE prophylaxis - PT/OT as tolerated - better medication compliance counseled - continue chronic disease medications per attending - continue other care per attending / other consultants - d/c planning of pulmonary-mayorga ... re-evaluate in am & prn Subjective Date of service: 12/02/18 Principal diagnosis: Sepsis Syndrome; DKA; UTI; Acute Encephalopathy (Toxic-Metabolic); HTN Interval history: Patient is seen today for: Sepsis Syndrome (Likely secondary to UTI); DKA; UTI; Acute Encephalopathy (Toxic-Metabolic); HTN Seen and examined at bedside; 24hour events reviewed; nursing and respiratory care staff consulted; no adverse overnight events reported to me; resting peacefully in bed; seen by urology; no inpatient procedures planned; glycemic control better; denies acute chest pains or palpitations Objective Vital Signs - 12hr 12/02/18 12/02/18 12/02/18 08:10 08:28 09:29 Temperature 98.7 F Pulse Rate 82 82 Pulse Rate [ 82 Left Radial] Respiratory 18 20 Rate Blood Pressure 124/76 Blood Pressure 124/76 [Right] O2 Sat by Pulse 97 96 Oximetry 12/02/18 10:00 Temperature Pulse Rate 82 Pulse Rate [ Left Radial] Respiratory Rate Blood Pressure Blood Pressure [Right] O2 Sat by Pulse Oximetry Constitutional: no acute distress, alert, other (elderly looking AAM, normocephalic and atraumatic with mildly increased respiratory effort at rest) Eyes: non-icteric ENT: oropharynx moist, other (mallampati 2) Neck: supple, no lymphadenopathy, no JVD Effort: normal Ascultation: Bilateral: clear, diminished breath sounds Percussion: Bilateral: not dull Cardiovascular: regular rate and rhythm Gastrointestinal: normoactive bowel sounds, soft, non-tender, non-distended Integumentary: normal Extremities: no cyanosis, no edema, pulses normal, no ischemia or petechiae Neurologic: non-focal exam, pupils equal and round, CN II-XII normal, motor strength normal and Psychiatric: mood appropriate, affect normal CBC and BMP: 12/02/18 04:26 12/02/18 04:26 ABG, PT/INR, D-dimer: PT/INR, D-dimer PT 15.3 Sec. (12.2-14.9) H 11/28/18 18:20 INR 1.14 (0.87-1.13) H 11/28/18 18:20 Abnormal lab findings: Abnormal Labs 11/28/18 11/28/18 11/28/18 17:18 17:54 17:54 WBC 16.7 H RBC 5.79 H Hgb 17.4 H Hct 54.5 H MCHC Plt Count Major % (Auto) Seg Neuts % (Manual) 88.0 H Lymphocytes % (Manual) 8.0 L Seg Neutrophils # Man 14.7 H PT INR VBG pH Sodium 130 L Potassium 5.8 H Chloride 84.7 L Carbon Dioxide 8 L* BUN 41 H Creatinine 2.2 H Glucose 821 H* POC Glucose > 500 H Hemoglobin A1c Lactic Acid Calcium Phosphorus Magnesium Total Creatine Kinase Total Protein 8.7 H Urine WBC (Auto) 11/28/18 11/28/18 11/28/18 17:54 18:20 18:20 WBC RBC Hgb Hct MCHC Plt Count Major % (Auto) Seg Neuts % (Manual) Lymphocytes % (Manual) Seg Neutrophils # Man PT 15.3 H INR 1.14 H VBG pH 7.108 L* Sodium Potassium Chloride Carbon Dioxide BUN Creatinine Glucose POC Glucose Hemoglobin A1c Lactic Acid Calcium Phosphorus Magnesium 2.90 H Total Creatine Kinase 39 L Total Protein Urine WBC (Auto) 11/28/18 11/28/18 11/28/18 19:30 20:55 21:40 WBC RBC Hgb Hct MCHC Plt Count Major % (Auto) Seg Neuts % (Manual) Lymphocytes % (Manual) Seg Neutrophils # Man PT INR VBG pH Sodium Potassium 5.5 H Chloride Carbon Dioxide 11 L BUN 38 H Creatinine 1.6 H Glucose 438 H POC Glucose 432 H Hemoglobin A1c Lactic Acid Calcium 8.1 L D Phosphorus Magnesium Total Creatine Kinase Total Protein Urine WBC (Auto) 17.0 H 11/28/18 11/28/18 11/28/18 21:40 21:40 22:23 WBC RBC Hgb Hct MCHC Plt Count Major % (Auto) Seg Neuts % (Manual) Lymphocytes % (Manual) Seg Neutrophils # Man PT INR VBG pH Sodium Potassium Chloride Carbon Dioxide BUN Creatinine Glucose POC Glucose 401 H Hemoglobin A1c Lactic Acid 3.80 H* Calcium Phosphorus 4.80 H Magnesium 2.40 H Total Creatine Kinase Total Protein Urine WBC (Auto) 11/28/18 11/28/18 11/28/18 23:19 23:19 23:55 WBC RBC Hgb Hct MCHC Plt Count Major % (Auto) Seg Neuts % (Manual) Lymphocytes % (Manual) Seg Neutrophils # Man PT INR VBG pH Sodium Potassium Chloride Carbon Dioxide 10 L 8 L* BUN 37 H 36 H Creatinine 1.6 H Glucose 380 H 305 H POC Glucose Hemoglobin A1c Lactic Acid 3.00 H* Calcium Phosphorus Magnesium Total Creatine Kinase Total Protein Urine WBC (Auto) 11/28/18 11/29/18 11/29/18 23:55 00:04 01:29 WBC RBC Hgb Hct MCHC Plt Count Major % (Auto) Seg Neuts % (Manual) Lymphocytes % (Manual) Seg Neutrophils # Man PT INR VBG pH Sodium 146 H Potassium Chloride 108.2 H Carbon Dioxide 12 L BUN 34 H Creatinine Glucose 175 H POC Glucose 294 H Hemoglobin A1c Lactic Acid 2.60 H* Calcium Phosphorus Magnesium Total Creatine Kinase Total Protein Urine WBC (Auto) 11/29/18 11/29/18 11/29/18 01:29 01:30 03:39 WBC RBC Hgb Hct MCHC Plt Count Major % (Auto) Seg Neuts % (Manual) Lymphocytes % (Manual) Seg Neutrophils # Man PT INR VBG pH Sodium Potassium Chloride Carbon Dioxide BUN Creatinine Glucose POC Glucose 227 H 192 H Hemoglobin A1c Lactic Acid 2.50 H* Calcium Phosphorus Magnesium Total Creatine Kinase Total Protein Urine WBC (Auto) 11/29/18 11/29/18 11/29/18 03:52 03:52 05:43 WBC RBC Hgb Hct MCHC Plt Count Major % (Auto) Seg Neuts % (Manual) Lymphocytes % (Manual) Seg Neutrophils # Man PT INR VBG pH Sodium 147 H Potassium Chloride 107.1 H Carbon Dioxide 15 L BUN 34 H Creatinine Glucose 189 H POC Glucose 286 H Hemoglobin A1c Lactic Acid 3.00 H* Calcium Phosphorus Magnesium Total Creatine Kinase Total Protein Urine WBC (Auto) 11/29/18 11/29/18 11/29/18 05:50 07:34 08:36 WBC RBC Hgb Hct MCHC Plt Count Major % (Auto) Seg Neuts % (Manual) Lymphocytes % (Manual) Seg Neutrophils # Man PT INR VBG pH Sodium Potassium Chloride Carbon Dioxide BUN Creatinine Glucose POC Glucose 267 H Hemoglobin A1c Lactic Acid 2.40 H* 4.00 H* Calcium Phosphorus Magnesium Total Creatine Kinase Total Protein Urine WBC (Auto) 11/29/18 11/29/18 11/29/18 08:44 09:52 10:43 WBC RBC Hgb Hct MCHC Plt Count Major % (Auto) Seg Neuts % (Manual) Lymphocytes % (Manual) Seg Neutrophils # Man PT INR VBG pH Sodium 146 H Potassium Chloride 107.9 H Carbon Dioxide 19 L BUN 34 H Creatinine Glucose 214 H POC Glucose 214 H 207 H Hemoglobin A1c Lactic Acid Calcium Phosphorus Magnesium Total Creatine Kinase Total Protein Urine WBC (Auto) 11/29/18 11/29/18 11/29/18 10:43 11:03 12:05 WBC RBC Hgb Hct MCHC Plt Count Major % (Auto) Seg Neuts % (Manual) Lymphocytes % (Manual) Seg Neutrophils # Man PT INR VBG pH Sodium Potassium Chloride Carbon Dioxide BUN Creatinine Glucose POC Glucose 205 H 221 H Hemoglobin A1c Lactic Acid 3.30 H* Calcium Phosphorus Magnesium Total Creatine Kinase Total Protein Urine WBC (Auto) 11/29/18 11/29/18 11/29/18 13:08 14:06 14:09 WBC RBC Hgb Hct MCHC Plt Count Major % (Auto) Seg Neuts % (Manual) Lymphocytes % (Manual) Seg Neutrophils # Man PT INR VBG pH Sodium Potassium Chloride Carbon Dioxide BUN Creatinine Glucose POC Glucose 199 H 185 H Hemoglobin A1c Lactic Acid 3.30 H* Calcium Phosphorus Magnesium Total Creatine Kinase Total Protein Urine WBC (Auto) 11/29/18 11/29/18 11/29/18 15:14 17:23 18:23 WBC RBC Hgb Hct MCHC Plt Count Major % (Auto) Seg Neuts % (Manual) Lymphocytes % (Manual) Seg Neutrophils # Man PT INR VBG pH Sodium Potassium Chloride Carbon Dioxide BUN Creatinine Glucose POC Glucose 259 H 239 H 205 H Hemoglobin A1c Lactic Acid Calcium Phosphorus Magnesium Total Creatine Kinase Total Protein Urine WBC (Auto) 11/29/18 11/29/18 11/29/18 19:36 20:05 20:10 WBC RBC Hgb Hct MCHC Plt Count Major % (Auto) Seg Neuts % (Manual) Lymphocytes % (Manual) Seg Neutrophils # Man PT INR VBG pH Sodium Potassium Chloride 107.6 H Carbon Dioxide 19 L BUN 25 H Creatinine Glucose 192 H POC Glucose 217 H 190 H Hemoglobin A1c Lactic Acid Calcium Phosphorus Magnesium Total Creatine Kinase Total Protein Urine WBC (Auto) 11/29/18 11/29/18 11/29/18 21:03 22:14 23:19 WBC RBC Hgb Hct MCHC Plt Count Major % (Auto) Seg Neuts % (Manual) Lymphocytes % (Manual) Seg Neutrophils # Man PT INR VBG pH Sodium Potassium Chloride Carbon Dioxide BUN Creatinine Glucose POC Glucose 178 H 133 H 116 H Hemoglobin A1c Lactic Acid Calcium Phosphorus Magnesium Total Creatine Kinase Total Protein Urine WBC (Auto) 11/30/18 11/30/18 11/30/18 00:21 01:08 02:39 WBC RBC Hgb Hct MCHC Plt Count Major % (Auto) Seg Neuts % (Manual) Lymphocytes % (Manual) Seg Neutrophils # Man PT INR VBG pH Sodium Potassium Chloride Carbon Dioxide BUN Creatinine Glucose POC Glucose 122 H 117 H 121 H Hemoglobin A1c Lactic Acid Calcium Phosphorus Magnesium Total Creatine Kinase Total Protein Urine WBC (Auto) 11/30/18 11/30/18 11/30/18 03:45 04:34 05:05 WBC RBC Hgb Hct MCHC Plt Count Major % (Auto) Seg Neuts % (Manual) Lymphocytes % (Manual) Seg Neutrophils # Man PT INR VBG pH Sodium Potassium Chloride Carbon Dioxide BUN Creatinine Glucose POC Glucose 130 H 125 H 128 H Hemoglobin A1c Lactic Acid Calcium Phosphorus Magnesium Total Creatine Kinase Total Protein Urine WBC (Auto) 11/30/18 11/30/18 11/30/18 06:45 07:39 09:06 WBC RBC Hgb Hct MCHC Plt Count Major % (Auto) Seg Neuts % (Manual) Lymphocytes % (Manual) Seg Neutrophils # Man PT INR VBG pH Sodium Potassium Chloride Carbon Dioxide BUN Creatinine Glucose POC Glucose 133 H 130 H 119 H Hemoglobin A1c Lactic Acid Calcium Phosphorus Magnesium Total Creatine Kinase Total Protein Urine WBC (Auto) 11/30/18 11/30/18 11/30/18 09:45 09:54 09:54 WBC RBC Hgb Hct MCHC 35 H Plt Count 133 L Major % (Auto) Seg Neuts % (Manual) Lymphocytes % (Manual) Seg Neutrophils # Man PT INR VBG pH Sodium Potassium Chloride Carbon Dioxide BUN Creatinine Glucose 126 H POC Glucose Hemoglobin A1c 14.0 H Lactic Acid Calcium Phosphorus Magnesium Total Creatine Kinase Total Protein Urine WBC (Auto) 11/30/18 11/30/18 11/30/18 10:21 11:24 16:19 WBC RBC Hgb Hct MCHC Plt Count Major % (Auto) Seg Neuts % (Manual) Lymphocytes % (Manual) Seg Neutrophils # Man PT INR VBG pH Sodium Potassium Chloride Carbon Dioxide BUN Creatinine Glucose POC Glucose 124 H 151 H 334 H Hemoglobin A1c Lactic Acid Calcium Phosphorus Magnesium Total Creatine Kinase Total Protein Urine WBC (Auto) 11/30/18 12/01/18 12/01/18 21:39 07:32 11:25 WBC RBC Hgb Hct MCHC Plt Count Major % (Auto) Seg Neuts % (Manual) Lymphocytes % (Manual) Seg Neutrophils # Man PT INR VBG pH Sodium Potassium Chloride Carbon Dioxide BUN Creatinine Glucose POC Glucose 239 H 226 H 308 H Hemoglobin A1c Lactic Acid Calcium Phosphorus Magnesium Total Creatine Kinase Total Protein Urine WBC (Auto) 12/01/18 12/01/18 12/01/18 16:29 16:29 16:37 WBC RBC Hgb 11.5 L Hct 32.6 L D MCHC 35 H Plt Count 96 L Major % (Auto) 7.5 H Seg Neuts % (Manual) Lymphocytes % (Manual) Seg Neutrophils # Man PT INR VBG pH Sodium Potassium 3.5 L Chloride Carbon Dioxide 21 L BUN Creatinine Glucose 260 H POC Glucose 253 H Hemoglobin A1c Lactic Acid Calcium 8.0 L Phosphorus Magnesium Total Creatine Kinase Total Protein Urine WBC (Auto) 12/01/18 12/02/18 12/02/18 22:07 04:26 04:26 WBC 3.7 L RBC 3.56 L Hgb 10.9 L Hct 31.4 L MCHC 35 H Plt Count 82 L Major % (Auto) 8.2 H Seg Neuts % (Manual) Lymphocytes % (Manual) Seg Neutrophils # Man PT INR VBG pH Sodium Potassium 3.3 L Chloride 108.9 H Carbon Dioxide BUN Creatinine Glucose 231 H POC Glucose 268 H Hemoglobin A1c Lactic Acid Calcium 7.8 L Phosphorus Magnesium Total Creatine Kinase Total Protein Urine WBC (Auto) 12/02/18 12/02/18 07:42 11:29 WBC RBC Hgb Hct MCHC Plt Count Major % (Auto) Seg Neuts % (Manual) Lymphocytes % (Manual) Seg Neutrophils # Man PT INR VBG pH Sodium Potassium Chloride Carbon Dioxide BUN Creatinine Glucose POC Glucose 287 H 284 H Hemoglobin A1c Lactic Acid Calcium Phosphorus Magnesium Total Creatine Kinase Total Protein Urine WBC (Auto) Allied health notes reviewed: nursing
[2018-12-02 13:45] VITALS: BP 133/69
== END 2018-12-02 14:00 | disposition home health service (06) | DRG 871 ==
LOC: ED 16:56 → CC1 19:09 → 2B-ACE 11-30 15:25
PROVIDERS: ADMIT Internal Medicine; ATTEND Hospitalist
PROC: 3E0234Z Introduction of Serum, Toxoid and Vaccine into Muscle, Percutaneous Approach (ICD-10-PCS; principal; 2018-11-30)
DX: A41.9 Sepsis, unspecified organism (principal); G92 Toxic encephalopathy; E11.10 Type 2 diabetes mellitus with ketoacidosis without coma; N39.0 Urinary tract infection, site not specified; N17.9 Acute kidney failure, unspecified; N47.1 Phimosis; R65.20 Severe sepsis without septic shock; I10 Essential (primary) hypertension; K21.9 Gastro-esophageal reflux disease without esophagitis; E78.2 Mixed hyperlipidemia; M19.90 Unspecified osteoarthritis, unspecified site; F03.90 Unspecified dementia, unspecified severity, without behavioral disturbance, psychotic disturbance, mood disturbance, and anxiety; Z90.49 Acquired absence of other specified parts of digestive tract; Z83.3 Family history of diabetes mellitus; Z82.49 Family history of ischemic heart disease and other diseases of the circulatory system; Z79.899 Other long term (current) drug therapy; Z79.4 Long term (current) use of insulin; Z91.11 Patient's noncompliance with dietary regimen; Z87.442 Personal history of urinary calculi; Z23 Encounter for immunization
CPT/HCPCS: 36415; 70450; 71046; 74176; 80048; 80053; 81001; 82140; 82550; 82805; 82962; 83036; 83735; 84100; 84443; 84484; 85007; 85025; 85027; 85610; 86140; 87040; 87086; 90686; 90732; 93005; 93010; 96374; 99291; G0378; J1650; J1815; J2543; J3370; J7030; J7040

== ENCOUNTER 2019-08-21 13:38 | Inpatient (IN) | payer MEDICARE ==
--- NOTE | 2019-08-21 13:59 | Event Note ---
ED Screening Note Date of service: 08/21/19 Time: 13:57 ED Screening Note: Pt complains of drowsiness x today Hx of diabetes--Glucose today >500 This initial assessment/diagnostic orders/clinical plan/treatment(s) is/are subject to change based on patients health status, clinical progression and re- assessment by fellow clinical providers in the ED. Further treatment and workup at subsequent clinical providers discretion. Patient/guardian urged not to elope from the ED as their condition may be serious if not clinically assessed and managed. Initial orders include: Labs
[2019-08-21 14:37] LABS: Mean Corpuscular HGB Conc 31 % (32-34); Mean Corpuscular Volume 86 fl (84-94); Platelet Count 155 K/mm3 (140-440); Red Blood Count 4.44 M/mm3 (3.65-5.03); Red Cell Distribution Width 16.2 % (13.2-15.2)
[2019-08-21 14:46] LABS: Hematocrit 38.3 % (35.5-45.6); Hemoglobin 11.7 gm/dl (11.8-15.2)
[2019-08-21 14:47] LABS: Alanine Aminotransferase 14 units/L (7-56); Albumin 4.6 g/dL (3.9-5); BUN/Creatinine Ratio 19; Bilirubin,Direct 0.3 mg/dL (0-0.2); Blood Urea Nitrogen 54 mg/dL (9-20); Calcium 10.1 mg/dL (8.4-10.2); Hemolysis Index 5
[2019-08-21] MEDS ORDERED: SODIUM CHLORIDE 0.9% 1000 ML 1,000 ML IV ONE ×2 (14:49→14:50)
[2019-08-21] MEDS ORDERED: FAMOTIDINE 20 MG/2 ML INJ IV ONE (14:50)
[2019-08-21] MEDS ORDERED: DEXTROSE 50% IN WATER (25GM) 50 ML SYRINGE IV PRN (14:50)
[2019-08-21] MEDS ORDERED: ONDANSETRON 4 MG/2 ML INJ IV ONE (14:50)
[2019-08-21] MEDS ORDERED: INSULIN REGULAR, HUMAN 100 UNITS in SODIUM CHLORIDE 0.9% 99 ML IV SCH (15:00)
[2019-08-21] MEDS ORDERED: POTASSIUM CHLORIDE 10 MEQ 10 MEQ/100 ML BAG IV SCH ×2 (15:00)
--- NOTE | 2019-08-21 15:00 | Emergency Department Report ---
ED General Adult HPI - General Chief complaint: Hyperglycemia Stated complaint: DIABETIC GLUCOSE HIGH Time Seen by Provider: 08/21/19 14:03 Source: patient, family Mode of arrival: Ambulatory Limitations: No Limitations - History of Present Illness Initial comments: Patient is a 68-year-old [place] male with past medical history of insulin- dependent diabetes who is been noncompliant with his medications who is presenting with increased thirst and increased urination for the last several days. Patient's states he has had some nausea vomiting and a cough with thick mucus that chokes and at times. Patient has not eaten in several days. Patient is complaining of some dizziness when he stands. She denies fevers chills sore throat or neck stiffness at this time. - Related Data Previous Rx's Medication Instructions Recorded Last Taken Type Ciprofloxacin HCl [Cipro] 500 mg PO BID #10 tablet 12/02/18 Unknown Rx Insulin NPH/Regular [NovoLIN 70/30] 25 unit SUB-Q BIDDIAB 30 Days 12/02/18 Un known Rx units Losartan [Cozaar] 50 mg PO QDAY #30 tablet 12/02/18 Unknown Rx Metformin HCl [Glucophage] 1,000 mg PO BIDWM #60 tablet 12/02/18 Unknown Rx Nystatin Cream [Mycostatin Cream] 1 applic TP BID 30 Days tube 12/02/18 Unknown Rx Allergies Allergy/AdvReac Type Severity Reaction Status Date / Time No Known Allergies Allergy Verified 10/16/14 12:48 ED Review of Systems ROS: Stated complaint: DIABETIC GLUCOSE HIGH Other details as noted in HPI Comment: All other systems reviewed and negative ED Past Medical Hx - Past Medical History Previous Medical History?: Yes Hx Hypertension: Yes Hx Diabetes: Yes (IDDM 2011) Hx GERD: Yes Hx Renal Disease: Yes (nephrolithiasis) Hx Sickle Cell Disease: No (SICKLE TRAIT) Hx Arthritis: Yes (knees and hands) Hx Kidney Stones: Yes Hx Dementia: Yes Additional medical history: ulcerative colitis, - Surgical History Past Surgical History?: Yes Hx Cholecystectomy: Yes - Social History Smoking Status: Never Smoker Substance Use Type: None - Medications Home Medications: Home Medications Medication Instructions Recorded Confirmed Last Taken Type Ciprofloxacin HCl [Cipro] 500 mg PO BID #10 tablet 12/02/18 Unknown Rx Insulin NPH/Regular [NovoLIN 70/30] 25 unit SUB-Q BIDDIAB 30 Days 12/02/18 Unknown Rx units Losartan [Cozaar] 50 mg PO QDAY #30 tablet 12/02/18 Unknown Rx Metformin HCl [Glucophage] 1,000 mg PO BIDWM #60 tablet 12/02/18 Unknown Rx Nystatin Cream [Mycostatin Cream] 1 applic TP BID 30 Days tube 12/02/18 Unknown Rx ED Physical Exam - General Limitations: No Limitations General appearance: alert, in no apparent distress - Head Head exam: Present: atraumatic, normocephalic - Eye Eye exam: Present: normal appearance. Absent: PERRL, EOMI - ENT ENT exam: Present: mucous membranes dry - Neck Neck exam: Present: normal inspection - Respiratory Respiratory exam: Present: normal lung sounds bilaterally. Absent: respiratory distress, wheezes, rales, rhonchi, stridor - Cardiovascular Cardiovascular Exam: Present: normal rhythm, tachycardia. Absent: systolic murmur, diastolic murmur, rubs, gallop - GI/Abdominal GI/Abdominal exam: Present: soft, normal bowel sounds. Absent: distended, tenderness, guarding, rebound - Rectal Rectal exam: Present: deferred - Extremities Exam Extremities exam: Present: normal inspection - Back Exam Back exam: Present: normal inspection - Neurological Exam Neurological exam: Present: alert, oriented X3 - Psychiatric Psychiatric exam: Present: normal affect, normal mood - Skin Skin exam: Present: warm, dry, intact, normal color. Absent: rash ED Course Vital Signs 08/21/19 08/21/19 13:57 14:37 Temperature 98.4 F 98.3 F Pulse Rate 138 H 122 H Respiratory 18 16 Rate Blood Pressure 94/67 Blood Pressure 111/79 [Right] O2 Sat by Pulse 98 98 Oximetry ED Medical Decision Making - Lab Data Result diagrams: 08/21/19 14:11 08/21/19 14:11 Lab Results 08/21/19 08/21/19 08/21/19 Range/Units 13:55 14:11 14:11 WBC 16.0 H (4.5-11.0) K/mm3 RBC 4.44 (3.65-5.03) M/mm3 Hgb 11.7 L (11.8-15.2) gm/dl Hct 38.3 (35.5-45.6) % MCV 86 (84-94) fl MCH 26 L (28-32) pg MCHC 31 L (32-34) % RDW 16.2 H (13.2-15.2) % Plt Count 155 (140-440) K/mm3 VBG pH (7.320-7.420) Sodium (137-145) mmol/L Potassium (3.6-5.0) mmol/L Chloride (98-107) mmol/L Carbon Dioxide (22-30) mmol/L Anion Gap mmol/L BUN (9-20) mg/dL Creatinine (0.8-1.5) mg/dL Estimated GFR ml/min BUN/Creatinine Ratio % Glucose (75-100) mg/dL POC Glucose > 500 H (70-105) Ketones Quantitative (Negative) Calcium (8.4-10.2) mg/dL Phosphorus 4.30 (2.5-4.5) mg/dL Magnesium 3.30 H (1.7-2.3) mg/dL Total Bilirubin (0.1-1.2) mg/dL Direct Bilirubin (0-0.2) mg/dL Indirect Bilirubin mg/dL AST (5-40) units/L ALT (7-56) units/L Alkaline Phosphatase (35-129) units/L Total Protein (6.3-8.2) g/dL Albumin (3.9-5) g/dL Albumin/Globulin Ratio % 08/21/19 08/21/19 Range/Units 14:11 15:01 WBC (4.5-11.0) K/mm3 RBC (3.65-5.03) M/mm3 Hgb (11.8-15.2) gm/dl Hct (35.5-45.6) % MCV (84-94) fl MCH (28-32) pg MCHC (32-34) % RDW (13.2-15.2) % Plt Count (140-440) K/mm3 VBG pH 7.427 H (7.320-7.420) Sodium 143 (137-145) mmol/L Potassium 4.4 (3.6-5.0) mmol/L Chloride 100.0 (98-107) mmol/L Carbon Dioxide 19 L (22-30) mmol/L Anion Gap 28 mmol/L BUN 54 H (9-20) mg/dL Creatinine 2.8 H (0.8-1.5) mg/dL Estimated GFR 28 ml/min BUN/Creatinine Ratio 19 % Glucose 623 H* (75-100) mg/dL POC Glucose (70-105) Ketones Quantitative Small (Negative) Calcium 10.1 (8.4-10.2) mg/dL Phosphorus (2.5-4.5) mg/dL Magnesium (1.7-2.3) mg/dL Total Bilirubin 1.00 (0.1-1.2) mg/dL Direct Bilirubin 0.3 H (0-0.2) mg/dL Indirect Bilirubin 0.7 mg/dL AST 15 (5-40) units/L ALT 14 (7-56) units/L Alkaline Phosphatase 92 (35-129) units/L Total Protein 8.8 H (6.3-8.2) g/dL Albumin 4.6 (3.9-5) g/dL Albumin/Globulin Ratio 1.1 % - EKG Data -: EKG Interpreted by Me EKG shows normal: sinus rhythm, axis, intervals, QRS complexes, ST-T waves Rate: tachycardia - Medical Decision Making Patient is a 68-year-old -[place] male who is presenting with some na usea vomiting and increased thirst. Patient's has tachycardia and his mouth is extremely dry. Patient is begging for water. Patient appears to be in early DKA with severe dehydration. Patient has new-onset renal failure. Patient will be admitted to the hospitalist service at this time. Critical Care Time: Yes (30) Critical care attestation.: If time is entered above; I have spent that time in minutes in the direct care of this critically ill patient, excluding procedure time. ED Disposition Clinical Impression: BRIGHT (acute kidney injury), DKA (diabetic ketoacidoses) Leukocytosis Qualifiers: Leukocytosis type: unspecified Qualified Code(s): D72.829 - Elevated white blood cell count, unspecified Disposition: OP ADMIT IP TO THIS HOSP Is pt being admited?: Yes Does the pt Need Aspirin: No Condition: Stable Time of Disposition: 15:25
--- NOTE | 2019-08-21 15:19 | History and Physical Report ---
History of Present Illness Chief complaint: He has been sick, and just wont take his medication History of present illness: 68 YO Male with DM, Medication and Dietary Noncompliance, GERD, OA, Dementia, Nephrolithiasis, Sickle Cell Trait, UC presents to ED for evaluation. Pt is lethargic and unable to provide history at time of exam. Pt history is provided by who is at bedside during exam and interview. As per , the patient and experienced weakness, increased thirst, fatigue, polydipsia, polyuria and confusion over the past 1 week with worsening symptoms over the past 3 days. Pt transported to [facility] via private vehicle. PT seen and evaluated in ED and found to have DKA, Sepsis, Acute Kidney Injury and Acidosis. Pt admitted to ICU. Pt initiated on DKA and Sepsis Protocol. Q sofa Score:3. Pulmonary team consulted in ED. Pt is confused, but is able to protect his airway without difficulty. Advanced care planning conducted in ED. Pt acknowledges understanding and agreement with care plan. Prior admission on 11/28/18 reviewed. All listed medication reconciled at time of admission. Past History Past Medical History: other (see hpi) Past Surgical History: cholecystectomy Social history: , lives with family. denies: smoking, alcohol abuse, prescription drug abuse Family history: diabetes, hypertension Medications and Allergies Allergies Allergy/AdvReac Type Severity Reaction Status Date / Time No Known Allergies Allergy Verified 10/16/14 12:48 Home Medications Medication Instructions Recorded Confirmed Last Taken Type Ciprofloxacin HCl [Cipro] 500 mg PO BID #10 tablet 12/02/18 Unknown Rx Insulin NPH/Regular [NovoLIN 70/30] 25 unit SUB-Q BIDDIAB 30 Days 12/02/18 Unknown Rx units Losartan [Cozaar] 50 mg PO QDAY #30 tablet 12/02/18 Unknown Rx Metformin HCl [Glucophage] 1,000 mg PO BIDWM #60 tablet 12/02/18 Unknown Rx Nystatin Cream [Mycostatin Cream] 1 applic TP BID 30 Days tube 12/02/18 Unknown Rx Active Meds: Active Medications Dextrose (D50w (25gm) Syringe) 0 ml IV Q30MIN PRN; Protocol PRN Reason: Hypoglycemia Sodium Chloride (Nacl 0.9% 1000 Ml) 1,000 mls @ 999 mls/hr IV BOLUS ONE Stop: 08/21/19 15:49 Last Admin: 08/21/19 15:09 Dose: 999 mls/hr Documented by: Sodium Chloride (Nacl 0.9% 1000 Ml) 1,000 mls @ 999 mls/hr IV BOLUS ONE Stop: 08/21/19 15:50 Last Admin: 08/21/19 15:09 Dose: 999 mls/hr Documented by: Insulin Human Regular 100 (units/ Sodium Chloride) 100 mls @ 1 mls/hr IV TITR EMILY; Protocol Potassium Chloride/Dextrose/Sod Cl (D5w/0.45% Nacl/Kcl 20 Meq) 20 meq in 1,000 mls @ 125 mls/hr IV DIRECT EMILY Potassium Chloride (Kcl 10meq/100ml) 10 meq in 100 mls @ 100 mls/hr IV Q1H EMILY Stop: 08/21/19 18:59 Potassium Chloride (Kcl 10meq/100ml) 10 meq in 100 mls @ 100 mls/hr IV Q1H EMILY Stop: 08/21/19 20:59 Review of Systems ROS unobtainable: due to mental status Exam - Constitutional Vitals: Temp Pulse Resp BP Pulse Ox 98.3 F 122 H 16 111/79 98 08/21/19 14:37 08/21/19 14:37 08/21/19 14:37 08/21/19 14:37 08/21/19 14:37 General appearance: Present: mild distress - EENT Eyes: Present: PERRL ENT: hearing intact, clear oral mucosa - Neck Neck: Present: supple, normal ROM - Respiratory Respiratory effort: normal Respiratory: bilateral: CTA - Cardiovascular Heart Sounds: Present: S1 & S2. Absent: rub, click - Extremities Extremities: pulses symmetrical, No edema Peripheral Pulses: within normal limits - Abdominal General gastrointestinal: Present: soft, non-tender, non-distended, normal bowel sounds Male genitourinary: Present: normal - Integumentary Integumentary: Present: clear, warm, dry - Musculoskeletal Musculoskeletal: strength equal bilaterally, generalized weakness - Psychiatric Psychiatric: no appropriate mood/affect, no intact judgment & insight, no memory intact - Neurologic Neurologic: CNII-XII intact, moves all extremities, no gait normal Results - Labs CBC & Chem 7: 08/21/19 14:11 08/21/19 15:01 Labs: Abnormal lab results 08/21/19 08/21/19 08/21/19 Range/Units 13:55 14:11 14:11 WBC 16.0 H (4.5-11.0) K/mm3 Hgb 11.7 L (11.8-15.2) gm/dl MCH 26 L (28-32) pg MCHC 31 L (32-34) % RDW 16.2 H (13.2-15.2) % VBG pH (7.320-7.420) Carbon Dioxide (22-30) mmol/L BUN (9-20) mg/dL Creatinine (0.8-1.5) mg/dL Glucose (75-100) mg/dL POC Glucose > 500 H (70-105) Magnesium 3.30 H (1.7-2.3) mg/dL Direct Bilirubin (0-0.2) mg/dL Total Protein (6.3-8.2) g/dL 08/21/19 08/21/19 Range/Units 14:11 15:01 WBC (4.5-11.0) K/mm3 Hgb (11.8-15.2) gm/dl MCH (28-32) pg MCHC (32-34) % RDW (13.2-15.2) % VBG pH 7.427 H (7.320-7.420) Carbon Dioxide 19 L (22-30) mmol/L BUN 54 H (9-20) mg/dL Creatinine 2.8 H (0.8-1.5) mg/dL Glucose 623 H* (75-100) mg/dL POC Glucose (70-105) Magnesium (1.7-2.3) mg/dL Direct Bilirubin 0.3 H (0-0.2) mg/dL Total Protein 8.8 H (6.3-8.2) g/dL Assessment and Plan - Patient Problems (1) DKA (diabetic ketoacidoses) Current Visit: Yes Status: Acute Qualifiers: Diabetes mellitus type: type 1 Plan to address problem: DKA Protocol: Admit to ICU, Insulin drip, IVF resuscitation, serial BMP, monitor serum potassium, monitor anion gap, supportive care. The high probability of a clinically significant, sudden or life threatening deterioration of the [endocrine, neuro, renal] system(s) required my full and direct attention, intervention and personal management. The aggregate critical care time was [65] minutes. This time is in addition to time spent performing reported procedures but includes the following: [x] Data Review and interpretation [x] Patient assessment and monitoring of vital signs [x] Documentation [x] Medication orders and management (2) BRIGHT (acute kidney injury) Current Visit: Yes Status: Acute Plan to address problem: IVF resuscitation therapy, nephrology consulted in ED, monitor uop q shift, renal ultrasound, urine electrolytes, avoid nephrotoxic agents. (3) Sepsis Current Visit: No Status: Acute Qualifiers: Sepsis type: sepsis due to unspecified organism Qualified Code(s): A41.9 - Sepsis, unspecified organism Plan to address problem: Sepsis Protocol: IVF resuscitation therapy, IV antibiotic therapy, CBC, CMP, Chest X ray, Urinalysis, blood cultures, (4) HTN (hypertension) Current Visit: No Status: Chronic Qualifiers: Hypertension type: essential hypertension Qualified Code(s): I10 - Essential (primary) hypertension Plan to address problem: Monitor bp q shift, supportive care. (5) DVT prophylaxis Current Visit: No Status: Acute Plan to address problem: SCD to BLE while in bed, supportive care. prophylactic heparin
[2019-08-21] MEDS ORDERED: ALBUTEROL 2.5 MG/3 ML NEBU IH PRN (15:22)
[2019-08-21 15:32] LABS: Calcium 10.1 mg/dL (8.4-10.2)
[2019-08-21] MEDS ORDERED: levoFLOXacin 750 MG TAB PO SCH (16:00)
[2019-08-21] MEDS ORDERED: VANCOMYCIN 1,500 MG in SODIUM CHLORIDE 0.9% 500 ML 500 ML IV ONE (16:00)
[2019-08-21] MEDS ORDERED: VANCOMYCIN PHARMACY TO DOSE IV SCH (16:00)
[2019-08-21] MEDS ORDERED: SODIUM CHLORIDE 0.9% 1000 ML 2,000 ML ONE (16:08)
--- NOTE | 2019-08-21 16:13 | XRay Report ---
CHEST 1 VIEW INDICATION: Dyspnea. COMPARISON: 11/28/2018 FINDINGS: Support devices: None. Heart: Within normal limits. Lungs/Pleura: No acute air space or interstitial disease. Additional findings: None. IMPRESSION: No acute findings. Signer Name: Bernardino Lewis Jr, MD Signed: 08/21/2019 4:09 PM Workstation Name: [id number]
[2019-08-21] MEDS ORDERED: SODIUM CHLORIDE 0.9% 1000 ML IV SOLN IV ONE (16:22)
[2019-08-21] MEDS ORDERED: levoFLOXacin 750 MG TAB ONE (17:07)
[2019-08-21 17:27] LABS: Calcium 8.9 mg/dL (8.4-10.2)
[2019-08-21 17:30] LABS: Bacteria,Urine 1+ /HPF (Negative); Bilirubin,Urine NEG (Negative); Blood,Urine MOD (Negative); Color,Urine Yellow (Yellow); Mucus,Urine FEW /HPF; Protein,Urine <15 mg/dL mg/dL (Negative); Urobilinogen,Urine < 2.0 mg/dL (<2.0)
[2019-08-21 17:32] LABS: Creatinine,Urine 67.6 mg/dL (0.1-20.0)
[2019-08-21] MEDS ORDERED: SODIUM CHLORIDE 0.9% 250ML 250 ML ONE (18:11)
[2019-08-21] MEDS ORDERED: D5W/0.45% NACL/KCL 20 MEQ 20 MEQ/1,000 ML BAG IV ONE (18:38)
[2019-08-21] MEDS: D5W/0.45% NACL/KCL 20 MEQ 20 MEQ/1,000 ML BAG IV SCH (18:40)
--- NOTE | 2019-08-21 21:00 | Ultrasound Report ---
RENAL ULTRASOUND HISTORY: BRIGHT COMPARISON: CT abdomen pelvis 12/01/2018 TECHNIQUE: Multiple real-time ultrasonographic grayscale images were obtained of the kidneys and urin shon bladder. FINDINGS: Right kidney: No significant abnormality. No hydronephrosis. Kidney measures 10.2 cm. Left kidney: Two echogenic foci are seen in the left kidney, one in the lower pole measuring up to 7 mm, and one in the mid kidney measuring up to 9 mm, likely representing nonobstructive stones. No hy dronephrosis. Kidney measures 10.7 cm. Urinary bladder: No significant abnormality. Additional findings: Incidental note of diffuse increased echogenicity of the visualized hepatic pare nchyma suggesting hepatic steatosis. IMPRESSION: 1. No acute sonographic abnormality identified in the kidneys. 2. Two echogenic foci in the left kidney measuring up to 9 mm likely represent nonobstructive stones. No hydronephrosis. 3. Hepatic steatosis. Signer Name: Lucia Munguia MD Signed: 08/21/2019 8:56 PM Workstation Name: [id number]
[2019-08-21] MEDS ORDERED: NYSTATIN CREAM 15 GM TUBE TP SCH (22:00)
[2019-08-22 04:41] LABS: Calcium 8.7 mg/dL (8.4-10.2)
[2019-08-22 04:42] LABS: Calcium 8.6 mg/dL (8.4-10.2)
[2019-08-22 04:43] LABS: Calcium 8.5 mg/dL (8.4-10.2)
[2019-08-22] MEDS: D5W/0.45% NACL/KCL 20 MEQ 20 MEQ/1,000 ML BAG IV SCH (06:50)
[2019-08-22 07:41] LABS: Calcium 8.5 mg/dL (8.4-10.2)
[2019-08-22] MEDS: HEPARIN 5,000 UNIT/1 ML VIAL SUB-Q SCH ×2 (09:10→22:00)
[2019-08-22] MEDS: levoFLOXacin 500 MG TAB PO SCH (09:10)
[2019-08-22] MEDS: LOSARTAN 50 MG TAB PO SCH (09:29)
[2019-08-22] MEDS ORDERED: INSULIN NPH/REGULAR 70/30 INJ SUB-Q SCH (10:00)
[2019-08-22] MEDS ORDERED: levoFLOXacin 500 MG TAB PO SCH (10:00)
[2019-08-22] MEDS ORDERED: SODIUM CHLORIDE 0.45% 1000 ML 1,000 ML IV SCH (10:00)
[2019-08-22] MEDS: INSULIN REGULAR, HUMAN 100 UNITS/1 ML SUB-Q SCH ×2 (12:24→16:51)
--- NOTE | 2019-08-22 13:43 | Progress Note ---
Assessment and Plan / DKA (diabetic ketoacidoses) BG improved, s/p DKA Protocol: Insulin drip, IVF resuscitation, serial BMP, monitor anion gap, supportive care. will stop insulin drip, place on consistent carb diet, change insulin to SSI and 70/30 / BRIGHT (acute kidney injury) cont IVF resuscitation therapy, nephrology consulted in ED, monitor uop q shift, renal ultrasound, urine electrolytes, avoid nephrotoxic agents. /Sepsis with UTI cont Sepsis Protocol: IVF resuscitation therapy, IV antibiotic therapy, Urine Cx, blood cultures, / HTN (hypertension) Monitor bp q shift, cont home meds, supportive care. /Dementia, supportive care / DVT prophylaxis SCD to BLE while in bed, supportive care. prophylactic heparin brief history: The patient is a 68 YO male with history significant for DM type 2, Hyeprtension, HLD, GERD, OA, Dementia, Nephrolithiasis, Sickle Cell Trait, UC and medical non-compliance who presented to [facility] ED 08/21 with c/o weakness, increased thirst, fatigue, polydipsia, polyuria and confusion over the past 1 week. In the ED he was found to have hypotension, DKA, Sepsis and Acute Kidney Injury. Pt was initiated on DKA and Sepsis protocol and admitted in the ICU. Initial labs were significant for bl sugar 623, creat 2.8 and Lactate 3. s/p DKA protocol, now transferred to BLESSING unit. Subjective Date of service: 08/22/19 Interval history: Patient seen and examined No acute issue today BG improved, wants to eat Discussed with and patient about adherence of meds and diet plan Objective - Constitutional Vitals: Vital Signs - 12hr 08/22/19 08/22/19 08/22/19 01:54 02:00 02:10 Temperature Pulse Rate 135 H 136 H 142 H Respiratory 56 H 44 H 43 H Rate Blood Pressure 99/62 115/47 115/47 O2 Sat by Pulse 93 94 Oximetry 08/22/19 08/22/19 08/22/19 02:20 02:30 02:40 Temperature Pulse Rate 145 H 149 H 146 H Respiratory 39 H 36 H 44 H Rate Blood Pressure 133/80 129/78 129/78 O2 Sat by Pulse 92 96 96 Oximetry 08/22/19 08/22/19 08/22/19 02:50 03:00 03:10 Temperature Pulse Rate 156 H 141 H 136 H Respiratory 46 H 35 H 31 H Rate Blood Pressure 129/78 123/87 123/87 O2 Sat by Pulse 96 94 99 Oximetry 08/22/19 08/22/19 08:04 09:29 Temperature 98.0 F Pulse Rate 104 H 101 H Respiratory 18 Rate Blood Pressure 145/88 144/71 O2 Sat by Pulse 97 Oximetry General appearance: Present: no acute distress, well-nourished - EENT Eyes: PERRL, EOM intact ENT: hearing intact, clear oral mucosa Ears: bilateral: normal - Neck Neck: supple, normal ROM - Respiratory Respiratory effort: normal Respiratory: bilateral: CTA - Cardiovascular Rhythm: regular Heart Sounds: Present: S1 & S2. Absent: gallop, rub Extremities: pulses intact, No edema, normal color, Full ROM - Gastrointestinal General gastrointestinal: Present: soft, non-tender, non-distended, normal bowel sounds - Integumentary Integumentary: clear, warm, dry - Musculoskeletal Musculoskeletal: 1, strength equal bilaterally - Neurologic Neurologic: moves all extremities - Psychiatric Psychiatric: memory intact, appropriate mood/affect, intact judgment & insight - Labs CBC & Chem 7: 08/21/19 14:11 08/23/19 04:46 Labs: Abnormal lab results 08/21/19 08/21/19 08/21/19 Range/Units 13:55 14:11 14:11 WBC 16.0 H (4.5-11.0) K/mm3 Hgb 11.7 L (11.8-15.2) gm/dl MCH 26 L (28-32) pg MCHC 31 L (32-34) % RDW 16.2 H (13.2-15.2) % VBG pH (7.320-7.420) Sodium (137-145) mmol/L Chloride (98-107) mmol/L Carbon Dioxide (22-30) mmol/L BUN (9-20) mg/dL Creatinine (0.8-1.5) mg/dL Glucose (75-100) mg/dL POC Glucose > 500 H (70-105) Lactic Acid (0.7-2.0) mmol/L Phosphorus (2.5-4.5) mg/dL Magnesium 3.30 H (1.7-2.3) mg/dL Direct Bilirubin (0-0.2) mg/dL Total Protein (6.3-8.2) g/dL Urine WBC (Auto) (0.0-6.0) /HPF Urine Creatinine (0.1-20.0) mg/dL 08/21/19 08/21/19 08/21/19 Range/Units 14:11 15:01 15:01 WBC (4.5-11.0) K/mm3 Hgb (11.8-15.2) gm/dl MCH (28-32) pg MCHC (32-34) % RDW (13.2-15.2) % VBG pH 7.427 H (7.320-7.420) Sodium (137-145) mmol/L Chloride (98-107) mmol/L Carbon Dioxide 19 L 18 L (22-30) mmol/L BUN 54 H 55 H (9-20) mg/dL Creatinine 2.8 H 2.7 H (0.8-1.5) mg/dL Glucose 623 H* 586 H* (75-100) mg/dL POC Glucose (70-105) Lactic Acid (0.7-2.0) mmol/L Phosphorus (2.5-4.5) mg/dL Magnesium (1.7-2.3) mg/dL Direct Bilirubin 0.3 H (0-0.2) mg/dL Total Protein 8.8 H (6.3-8.2) g/dL Urine WBC (Auto) (0.0-6.0) /HPF Urine Creatinine (0.1-20.0) mg/dL 08/21/19 08/21/19 08/21/19 Range/Units 16:49 16:49 17:10 WBC (4.5-11.0) K/mm3 Hgb (11.8-15.2) gm/dl MCH (28-32) pg MCHC (32-34) % RDW (13.2-15.2) % VBG pH (7.320-7.420) Sodium 147 H (137-145) mmol/L Chloride 111.4 H (98-107) mmol/L Carbon Dioxide 19 L (22-30) mmol/L BUN 49 H (9-20) mg/dL Creatinine 2.2 H (0.8-1.5) mg/dL Glucose 301 H (75-100) mg/dL POC Glucose (70-105) Lactic Acid 3.00 H* (0.7-2.0) mmol/L Phosphorus (2.5-4.5) mg/dL Magnesium (1.7-2.3) mg/dL Direct Bilirubin (0-0.2) mg/dL Total Protein (6.3-8.2) g/dL Urine WBC (Auto) 9.0 H (0.0-6.0) /HPF Urine Creatinine (0.1-20.0) mg/dL 08/21/19 08/21/19 08/21/19 Range/Units 17:10 18:38 19:43 WBC (4.5-11.0) K/mm3 Hgb (11.8-15.2) gm/dl MCH (28-32) pg MCHC (32-34) % RDW (13.2-15.2) % VBG pH (7.320-7.420) Sodium (137-145) mmol/L Chloride (98-107) mmol/L Carbon Dioxide (22-30) mmol/L BUN (9-20) mg/dL Creatinine (0.8-1.5) mg/dL Glucose (75-100) mg/dL POC Glucose 169 H 115 H (70-105) Lactic Acid (0.7-2.0) mmol/L Phosphorus (2.5-4.5) mg/dL Magnesium (1.7-2.3) mg/dL Direct Bilirubin (0-0.2) mg/dL Total Protein (6.3-8.2) g/dL Urine WBC (Auto) (0.0-6.0) /HPF Urine Creatinine 67.6 H (0.1-20.0) mg/dL 08/22/19 08/22/19 08/22/19 Range/Units 03:53 03:53 03:53 WBC (4.5-11.0) K/mm3 Hgb (11.8-15.2) gm/dl MCH (28-32) pg MCHC (32-34) % RDW (13.2-15.2) % VBG pH (7.320-7.420) Sodium 153 H 151 H 152 H (137-145) mmol/L Chloride 120.8 H 121.2 H 120.8 H (98-107) mmol/L Carbon Dioxide 16 L 15 L 15 L (22-30) mmol/L BUN 32 H 33 H 33 H (9-20) mg/dL Creatinine 1.7 H 1.7 H 1.7 H (0.8-1.5) mg/dL Glucose 67 L 66 L 66 L (75-100) mg/dL POC Glucose (70-105) Lactic Acid (0.7-2.0) mmol/L Phosphorus (2.5-4.5) mg/dL Magnesium (1.7-2.3) mg/dL Direct Bilirubin (0-0.2) mg/dL Total Protein (6.3-8.2) g/dL Urine WBC (Auto) (0.0-6.0) /HPF Urine Creatinine (0.1-20.0) mg/dL 08/22/19 08/22/19 08/22/19 Range/Units 03:53 03:53 06:59 WBC (4.5-11.0) K/mm3 Hgb (11.8-15.2) gm/dl MCH (28-32) pg MCHC (32-34) % RDW (13.2-15.2) % VBG pH (7.320-7.420) Sodium 154 H (137-145) mmol/L Chloride 120.4 H (98-107) mmol/L Carbon Dioxide 15 L (22-30) mmol/L BUN 28 H (9-20) mg/dL Creatinine 1.6 H (0.8-1.5) mg/dL Glucose 150 H (75-100) mg/dL POC Glucose (70-105) Lactic Acid 3.50 H* 3.50 H* (0.7-2.0) mmol/L Phosphorus 2.30 L D (2.5-4.5) mg/dL Magnesium (1.7-2.3) mg/dL Direct Bilirubin (0-0.2) mg/dL Total Protein (6.3-8.2) g/dL Urine WBC (Auto) (0.0-6.0) /HPF Urine Creatinine (0.1-20.0) mg/dL 08/22/19 08/22/19 Range/Units 06:59 11:46 WBC (4.5-11.0) K/mm3 Hgb (11.8-15.2) gm/dl MCH (28-32) pg MCHC (32-34) % RDW (13.2-15.2) % VBG pH (7.320-7.420) Sodium (137-145) mmol/L Chloride (98-107) mmol/L Carbon Dioxide (22-30) mmol/L BUN (9-20) mg/dL Creatinine (0.8-1.5) mg/dL Glucose (75-100) mg/dL POC Glucose 396 H (70-105) Lactic Acid 3.20 H* (0.7-2.0) mmol/L Phosphorus (2.5-4.5) mg/dL Magnesium (1.7-2.3) mg/dL Direct Bilirubin (0-0.2) mg/dL Total Protein (6.3-8.2) g/dL Urine WBC (Auto) (0.0-6.0) /HPF Urine Creatinine (0.1-20.0) mg/dL
[2019-08-22] MEDS: POLYETHYLENE GLYCOL 3350 17 GM POWDER PO SCH (14:01)
[2019-08-22] MEDS: DOCUSATE SODIUM 100 MG CAP PO SCH (14:01)
[2019-08-22 15:01] LABS: BUN/Creatinine Ratio 17; Blood Urea Nitrogen 24 mg/dL (9-20); Calcium 8.3 mg/dL (8.4-10.2); Hemolysis Index 20
[2019-08-22] MEDS ORDERED: VANCOMYCIN 1,250 MG in SODIUM CHLORIDE 0.9% 250ML 250 ML IV SCH (16:00)
[2019-08-22] MEDS: INSULIN NPH/REGULAR 70/30 INJ SUB-Q SCH (16:57)
--- NOTE | 2019-08-22 19:37 | Consultation ---
History of Present Illness - Reason for Consult Consult date: 08/22/19 acute renal failure, hypernatremia - History of Present Illness The patient is a 68 YO male with history significant for DM type 2, Hyeprtension, HLD, GERD, OA, Dementia, Nephrolithiasis, Sickle Cell Trait, UC and medical non-compliance who presented to [facility] ED 08/21 with c/o weakness, increased thirst, fatigue, polydipsia, polyuria and confusion over the past 1 week. Patient was not able to provide any history and most of the information was obtained from his at the bedside. In the ED he was found to have hypot ension, DKA, Sepsis and Acute Kidney Injury. Pt was initiated on DKA and Sepsis protocol and admitted in the ICU. Per his blood sugar has not been well controlled. Initial labs were significant for bl sugar 623, creat 2.8 and Lactate 3. Nephrology was consulted or further evaluation. Past History Past Medical History: other (see hpi) Past Surgical History: cholecystectomy Social history: , lives with family. denies: smoking, alcohol abuse, prescription drug abuse Family history: diabetes, hypertension Medications and Allergies Allergies Allergy/AdvReac Type Severity Reaction Status Date / Time No Known Allergies Allergy Verified 10/16/14 12:48 Home Medications Medication Instructions Recorded Confirmed Last Taken Type Metformin HCl [Glucophage] 1,000 mg PO BIDWM #60 tablet 12/02/18 08/21/19 Unknown Rx Nystatin Cream [Mycostatin Cream] 1 applic TP BID 30 Days tube 12/02/18 08/21/19 Unknown Rx Fenofibrate 160 mg PO DAILY 08/21/19 08/21/19 Unknown History Insulin NPH Hum/Reg Insulin Hm 25 unit SQ QHS 08/21/19 08/21/19 Unknown History [HumuLIN 70/30 Kwikpen] Insulin NPH Hum/Reg Insulin Hm 55 unit SQ QAM 08/21/19 08/21/19 Unknown History [HumuLIN 70/30 Kwikpen] Lisinopril [Zestril TAB] 40 mg PO DAILY 08/21/19 08/21/19 Unknown History Omeprazole 20 mg PO DAILY 08/21/19 08/21/19 Unknown History clonazePAM [KlonoPIN] 0.5 mg PO Q8H PRN 08/21/19 08/21/19 Unknown History Active Meds: Active Medications Albuterol (Proventil) 2.5 mg IH Q3HRT PRN PRN Reason: Shortness Of Breath Dextrose (D50w (25gm) Syringe) 0 ml IV Q30MIN PRN; Protocol PRN Reason: Hypoglycemia Docusate Sodium (Colace) 100 mg PO BID [facility] Last Admin: 08/22/19 14:01 Dose: 100 mg Documented by: Heparin Sodium (Porcine) (Heparin) 5,000 unit SUB-Q Q12HR [facility] Last Admin: 08/22/19 09:10 Dose: 5,000 unit Documented by: Vancomycin HCl 1,250 mg/ (Sodium Chloride) 275 mls @ 166.667 mls/hr IV Q24H [facility] Last Admin: 08/22/19 16:52 Dose: 166.667 mls/hr Documented by: Sodium Chloride (Nacl 0.45% 1000 Ml) 1,000 mls @ 125 mls/hr IV DIRECT EMILY Insulin Human Isoph/Insulin Regular (Humulin 70/30) 25 unit SUB-Q BIDDIAB [facility] Last Admin: 08/22/19 16:57 Dose: 25 unit Documented by: Insulin Human Regular (Humulin R) 0 units SUB-Q ACHS [facility]; Protocol Last Admin: 08/22/19 16:51 Dose: 2 units Documented by: Levofloxacin (Levaquin) 500 mg PO Q24HR [facility] Stop: 08/24/19 10:01 Last Admin: 08/22/19 09:10 Dose: 500 mg Documented by: Losartan Potassium (Cozaar) 50 mg PO QDAY [facility] Last Admin: 08/22/19 09:29 Dose: 50 mg Documented by: Nystatin (Mycostatin) 1 applic TP BID [facility] Polyethylene Glycol (Miralax 3350) 17 gm PO QDAY [facility] Last Admin: 08/22/19 14:01 Dose: 17 gm Documented by: Sodium Chloride (Sodium Chloride Flush Syringe 10 Ml) 10 ml IV BID [facility] Last Admin: 08/22/19 10:26 Dose: 10 ml Documented by: Sodium Chloride (Sodium Chloride Flush Syringe 10 Ml) 10 ml IV PRN PRN PRN Reason: LINE FLUSH Exam - Vital Signs Vital signs: Vital Signs Temp Pulse Resp BP Pulse Ox 98.4 F 138 H 18 94/67 98 08/21/19 13:57 08/21/19 13:57 08/21/19 13:57 08/21/19 13:57 08/21/19 13:57 Results - Lab Results 08/21/19 14:11 08/22/19 14:31 Most recent lab results Calcium 8.3 mg/dL (8.4-10.2) L 08/22/19 14:31 Phosphorus 2.30 mg/dL (2.5-4.5) L D 08/22/19 06:59 Magnesium 3.30 mg/dL (1.7-2.3) H 08/21/19 14:11 Urine Creatinine 67.6 mg/dL (0.1-20.0) H 08/21/19 17:10 Urine Sodium 20 mmol/L 08/21/19 17:10 - Image Kidney/bladder ultrasound: report reviewed Assessment and Plan 1. Acute kidney injury: Vasomotor BRIGHT in the setting of volume depletion and hypotension. Renal US negative for hydro. Continue IV fluids. Renal function is gradually improving. Monitor renal function. Avoid nephrotoxic agents. Meds dosage based on GFR. 2. FEN: Hypernatremia, 2/2 dehydration. Sodium level is improving. Lactic acidosis, monitor. Monitor lytes. 3. DKA: Improving. 4. Sepsis: On Vancomycin. 5. Hypertension. 6. Anemia: POA. 7. Metabolic Encephalopathy.
[2019-08-23] MEDS: DOCUSATE SODIUM 100 MG CAP PO SCH ×2 (02:04→09:23)
[2019-08-23] MEDS: INSULIN REGULAR, HUMAN 100 UNITS/1 ML SUB-Q SCH ×4 (02:05→16:38)
[2019-08-23] MEDS ORDERED: VANCOMYCIN 1,250 MG in SODIUM CHLORIDE 0.9% 250ML 250 ML IV SCH (04:00)
[2019-08-23 05:52] LABS: BUN/Creatinine Ratio 12; Blood Urea Nitrogen 14 mg/dL (9-20); Calcium 8.4 mg/dL (8.4-10.2); Hemolysis Index 3
[2019-08-23] MEDS: INSULIN NPH/REGULAR 70/30 INJ SUB-Q SCH ×2 (08:01→16:38)
--- NOTE | 2019-08-23 08:11 | Progress Note ---
Assessment and Plan 1. Acute kidney injury: Vasomotor BRIGHT in the setting of volume depletion and hypotension. Renal US negative for hydro. Continue IV fluids. Renal function is gradually improving. Monitor renal function. Avoid nephrotoxic agents. Meds dosage based on GFR. 2. FEN: Hypernatremia, 2/2 dehydration. Sodium level is improving. Lactic acidosis, monitor. Replete Phos. Monitor lytes. 3. DKA: Improving. 4. Sepsis. 5. Hypertension. 6. Anemia: POA. 7. Metabolic Encephalopathy. F/u with me in 1-2 weeks. Examination: General appearance: well-developed, appears stated age, not in distress HEENT: Atraumatic EYES: Pupils reacting to light Neck: supple Respiratory: ctab Cardiology: regular, S1S2 heard, no murmur Gastrointestinal: soft, BS heard, not tender Integumentary: no rash noted Neurologic: alert, follows command, conversing, confused Ext: no edema Skin: No rash Subjective Date of service: 08/23/19 Interval history: Patient was seen and examined at the bedside. Doing better. at the bedside. Objective - Vital Signs Vital signs: Vital Signs - 12hr 08/22/19 08/23/19 08/23/19 21:01 01:52 07:19 Temperature 97.8 F 98.7 F 99.1 F Pulse Rate 117 H 103 H 92 H Respiratory 20 20 20 Rate Blood Pressure 123/80 116/74 124/71 O2 Sat by Pulse 95 97 98 Oximetry - Lab 08/21/19 14:11 08/23/19 04:46 Most recent lab results Calcium 8.4 mg/dL (8.4-10.2) 08/23/19 04:46 Phosphorus 1.70 mg/dL (2.5-4.5) L D 08/23/19 04:46 Magnesium 3.30 mg/dL (1.7-2.3) H 08/21/19 14:11 Urine Creatinine 67.6 mg/dL (0.1-20.0) H 08/21/19 17:10 Urine Sodium 20 mmol/L 08/21/19 17:10 Medications & Allergies - Medications Allergies/Adverse Reactions: Allergies No Known Allergies Allergy (Verified 10/16/14 12:48) Home Medications: Home Medications Medication Instructions Recorded Confirmed Last Taken Type Metformin HCl [Glucophage] 1,000 mg PO BIDWM #60 tablet 12/02/18 08/21/19 Unknown Rx Fenofibrate 160 mg PO DAILY 08/21/19 08/21/19 Unknown History Insulin NPH Hum/Reg Insulin Hm 25 unit SQ QHS 08/21/19 08/21/19 Unknown History [HumuLIN 70/30 Kwikpen] Insulin NPH Hum/Reg Insulin Hm 55 unit SQ QAM 08/21/19 08/21/19 Unknown History [HumuLIN 70/30 Kwikpen] Omeprazole 20 mg PO DAILY 08/21/19 08/21/19 Unknown History Docusate Sodium [Colace CAP] 100 mg PO BID #60 capsule 08/23/19 Unknown Rx Insulin Regular, Human [HumuLIN R] See Protocol SUB-Q ACHS #10 units 08/23/19 Unknown Rx levoFLOXacin [Levaquin TAB] 500 mg PO Q24HR #4 tablet 08/23/19 Unknown Rx Active Medications: Generic Name Dose Route Start Last Admin Trade Name Freq PRN Reason Stop Dose Admin Albuterol 2.5 mg 08/21/19 15:22 Proventil IH Q3HRT PRN Shortness Of Breath Dextrose 0 ml 08/21/19 14:50 D50w (25gm) Syringe IV Q30MIN PRN Hypoglycemia Protocol Docusate Sodium 100 mg 08/22/19 14:00 08/23/19 02:04 Colace PO Not Given BID EMILY Heparin Sodium (Porcine) 5,000 unit 08/21/19 22:00 08/22/19 22:00 Heparin SUB-Q Not Given Q12HR EMILY Vancomycin HCl 1,250 mg/ 275 mls @ 166.667 mls/hr 08/22/19 16:00 08/22/19 16:52 Sodium Chloride IV 166.667 mls/hr Q24H EMILY Administration Sodium Chloride 1,000 mls @ 125 mls/hr 08/22/19 10:00 Nacl 0.45% 1000 Ml IV DIRECT EMILY Insulin Human Isoph/Insulin Regular 25 unit 08/22/19 13:42 08/23/19 08:01 Humulin 70/30 SUB-Q 25 unit BIDDIAB EMILY Administration Insulin Human Regular 0 units 08/22/19 11:30 08/23/19 08:02 Humulin R SUB-Q 1 units ACHS EMILY Administration Protocol Levofloxacin 500 mg 08/22/19 10:00 08/22/19 09:10 Levaquin PO 08/24/19 10:01 500 mg Q24HR EMILY Administration Losartan Potassium 50 mg 08/22/19 10:00 08/22/19 09:29 Cozaar PO 50 mg QDAY EMILY Administration Nystatin 1 applic 08/21/19 22:00 Mycostatin TP BID EMILY Polyethylene Glycol 17 gm 08/22/19 14:00 08/22/19 14:01 Miralax 3350 PO 17 gm QDAY EMILY Administration Sodium Chloride 10 ml 08/21/19 22:00 08/22/19 10:26 Sodium Chloride Flush Syringe 10 Ml IV 10 ml BID EMILY Administration Sodium Chloride 10 ml 08/21/19 15:22 Sodium Chloride Flush Syringe 10 Ml IV PRN PRN LINE FLUSH
[2019-08-23] MEDS: HEPARIN 5,000 UNIT/1 ML VIAL SUB-Q SCH (09:22)
[2019-08-23] MEDS: levoFLOXacin 500 MG TAB PO SCH (09:23)
[2019-08-23] MEDS: LOSARTAN 50 MG TAB PO SCH (09:23)
[2019-08-23] MEDS: POLYETHYLENE GLYCOL 3350 17 GM POWDER PO SCH (09:32)
[2019-08-23] MEDS ORDERED: FLU VACC QUAD 2019-20 (3 YR UP)/PF 60 MCG/0.5 ML SYRINGE IM ONE (12:30)
[2019-08-23 13:23] VITALS: BP 146/87
--- NOTE | 2019-08-23 15:27 | Discharge Summary ---
Providers - Providers Date of Admission: 08/21/19 15:22 Date of discharge: 08/23/19 Attending physician: BRANDON GARCIA 08/21/19 16:58 Consult to Physician [CONS] Routine Comment: spoke with the / twan Consulting Provider: MARIANO BLUNT Physician Instructions: Reason For Exam: BRIGHT 08/22/19 09:50 Physical Therapy Evaluation and Treat [CONS] Routine Comment: Reason For Exam: Weakness Primary care physician: FINANCIAL MANAGER Hospitalization Condition: Stable Pertinent studies: CXR: No acute findings. Renal US: 1. No acute sonographic abnormality identified in the kidneys. 2. Two echogenic foci in the left kidney measuring up to 9 mm likely represent nonobstructive stones. No hydronephrosis. 3. Hepatic steatosis. Hospital course: The patient is a 68 YO male with history significant for DM type 2, Hyeprtension, HLD, GERD, OA, Dementia, Nephrolithiasis, Sickle Cell Trait, UC and medical non-compliance who presented to [facility] ED 08/21 with c/o weakness, increased thirst, fatigue, polydipsia, polyuria and confusion over the past 1 week. In the ED he was found to have hypotension, DKA, Sepsis and Acute Kidney Injury. Pt was initiated on DKA and Sepsis protocol and admitted in the ICU. Initial labs were significant for bl sugar 623, creat 2.8 and Lactate 3. On presentation given iv fluid bolus in the ER, admitted to ICU on insulin drip. Patient was weaned off from insulin drip as BG improved and anion gap closed. Patient was continued on iv fluid, consistent carb diet, Placed on Long-acting insulin and SSI. Adjusted long acting insulin dose to better improve BG level, counselled for dietary and insulin regimen compliance with the patient. Patient was then discharged home in stable condition with outpt f/u. Discharge diagnosis: / DKA (diabetic ketoacidoses) with type 2 diabetes mellitus BG improved, s/p DKA Protocol: Insulin drip, IVF resuscitation, serial BMP and anion gap, placed on consistent carb diet, changed insulin to SSI and 70/30 / BRIGHT (acute kidney injury) Mx with IVF resuscitation therapy, nephrology consulted in ED, monitored uop q shift, renal ultrasound ordered, avoided nephrotoxic agents. /Sepsis with UTI Tretaed with Sepsis Protocol: IVF resuscitation therapy, IV antibiotic therapy, ordered Urine Cx, blood cultures, / HTN (hypertension) Monitored bp q shift, resumed home meds, supportive care. /Dementia, Mild, given supportive care. Patient was independent prior to admission. Noted to be alert oriented to time place and person on discharge. Recommended follow-up with his PCP as outpatient. / DVT prophylaxis SCD to BLE while in bed, prophylactic heparin Disposition: DC/TX-06 HOME [facility] Time spent for discharge: 34 minutes Core Measure Documentation - Palliative Care Palliative Care/ Comfort Measures: Not Applicable - Core Measures Any of the following diagnoses?: none Exam - Constitutional Vitals: Temp Pulse Resp BP Pulse Ox 98.2 F 106 H 20 146/87 99 08/23/19 13:16 08/23/19 13:16 08/23/19 13:16 08/23/19 13:16 08/23/19 13:16 General appearance: Present: no acute distress - EENT Eyes: Present: PERRL ENT: hearing intact, clear oral mucosa - Neck Neck: Present: supple, normal ROM - Respiratory Respiratory effort: normal Respiratory: bilateral: CTA - Cardiovascular Heart Sounds: Present: S1 & S2. Absent: rub, click - Extremities Extremities: pulses symmetrical, No edema Peripheral Pulses: within normal limits - Abdominal General gastrointestinal: Present: soft, non-tender, non-distended, normal bowel sounds - Integumentary Integumentary: Present: clear, warm, dry - Musculoskeletal Musculoskeletal: strength equal bilaterally - Psychiatric Psychiatric: cooperative - Neurologic Neurologic: CNII-XII intact, moves all extremities Plan Activity: advance as tolerated, fall precautions Weight Bearing Status: Weight Bear as Tolerated Diet: diabetic Special Instructions: record blood sugar diary, home health RN (to monitor BG) Additional Instructions: Please check BG before meal and bedtime Follow up with: PRIMARY CAREMD [Primary Care Provider] - 7 Days THADDEUS POPE MD [Staff Physician] - 7 Days Prescriptions: Docusate Sodium [Colace CAP] 100 mg PO BID #60 capsule Insulin Regular, Human [HumuLIN R] See Protocol SUB-Q ACHS #10 units levoFLOXacin [Levaquin TAB] 500 mg PO Q24HR #4 tablet
[2019-08-23] MEDS ORDERED: PHOS-NAK POWDER PACKET PO SCH (16:00)
[2019-08-23] MEDS ORDERED: POTASSIUM PHOSPHATE 15 MMOL in SODIUM CHLORIDE 0.9% 250ML 250 ML IV ONE (17:00)
== END 2019-08-23 18:30 | disposition home or self-care (01) | DRG 871 ==
LOC: ED 13:38 → CC1 15:22 → 2B-ACE 08-22 02:33
PROVIDERS: ADMIT Internal Medicine; ATTEND Internal Medicine
DX: A41.9 Sepsis, unspecified organism (principal); E11.10 Type 2 diabetes mellitus with ketoacidosis without coma; G93.41 Metabolic encephalopathy; N17.9 Acute kidney failure, unspecified; E87.0 Hyperosmolality and hypernatremia; N39.0 Urinary tract infection, site not specified; F03.90 Unspecified dementia, unspecified severity, without behavioral disturbance, psychotic disturbance, mood disturbance, and anxiety; I10 Essential (primary) hypertension; D64.9 Anemia, unspecified; K21.9 Gastro-esophageal reflux disease without esophagitis; Z91.14 Patient's other noncompliance with medication regimen; Z87.442 Personal history of urinary calculi; Z90.49 Acquired absence of other specified parts of digestive tract; Z82.49 Family history of ischemic heart disease and other diseases of the circulatory system; Z83.3 Family history of diabetes mellitus; Z79.84 Long term (current) use of oral hypoglycemic drugs
CPT/HCPCS: 36415; 71045; 76770; 80048; 80076; 81001; 82010; 82140; 82570; 82805; 82962; 83735; 84100; 84300; 85027; 86850; 86900; 86901; 87040; 87086; 90686; 93005; 93010; G0378; J1644; J1815; J2405; J3370; J3480; J7030; J7040; J7050

== ENCOUNTER 2019-11-29 12:20 | Emergency (ER) | payer MEDICARE ==
--- NOTE | 2019-11-29 12:52 | Emergency Department Report ---
Blank Doc - Documentation Documentation: 69-year-old male that presents with left arm pain. Denies any chest pain or S OB. This initial assessment/diagnostic orders/clinical plan/treatment(s) is/are subject to change based on patient's health status, clinical progression and re- assessment by fellow clinical providers in the ED. Further treatment and workup at subsequent clinical providers discretion. Patient/guardians urged not to elope from the ED as their condition may be serious if not clinically assessed and managed. Initial orders include: 1- Patient sent to [facility] for further evaluation and treatment 2- Doppler US
--- NOTE | 2019-11-29 13:45 | Vascular Lab Report ---
LEFT UPPER EXTREMITY VENOUS DOPPLER ULTRASOUND HISTORY: Left arm pain for 3 days COMPARISON: None. TECHNIQUE: Grayscale, color and spectral Doppler imaging of the venous system of the left upper extre mity was performed. FINDINGS: Internal Jugular Vein: Normal grayscale appearance and flow. Subclavian Vein: Normal grayscale appearance and flow. Axillary Vein: Normal venous flow, compressibility and augmentation. Brachial vein: Normal venous flow, compressibility and augmentation. Radial vein: Normal venous flow, compressibility and augmentation. Ulnar vein: Normal venous flow, compressibility and augmentation. Additional Findings: The cephalic and basilic veins are patent IMPRESSION: 1. No sonographic evidence of deep venous thrombosis in the left upper extremity. Signer Name: Bernardino Lewis Jr, MD Signed: 11/29/2019 1:40 PM Workstation Name: [id number]
--- NOTE | 2019-11-29 16:14 | Emergency Department Report ---
Upper Extremity - HPI Chief Complaint: Extremity Injury, Upper Stated Complaint: LFT ARM PAIN Time Seen by Provider: 11/29/19 12:49 Upper Extremity: Left Arm Occurred When: >5 Days Mechanism: Other Severity: mild (No injury) Symptoms: Yes Pain with Movement, No Deformity, No Limited Range of Movement, No Numbness, No Weakness, No Swelling, No Bruising/Ecchymosis, No Laceration or Abrasion Other History: This is a 69-year-old male with a history of diabetes and hypertension controlled with medication who presents to ED complaining of upper arm pain that is been going on for some time now probably about a month or 2 months. Patient states that pain is worsened with movement. Patient is not complaining of any other symptoms such as fever/chills/nausea vomiting/abdominal pain ED Review of Systems ROS: Stated complaint: LFT ARM PAIN Other details as noted in HPI Comment: All other systems reviewed and negative ED Past Medical Hx - Past Medical History Hx Hypertension: Yes Hx Diabetes: Yes (IDDM 2011) Hx GERD: Yes Hx Renal Disease: Yes (nephrolithiasis) Hx Sickle Cell Disease: No (SICKLE TRAIT) Hx Arthritis: Yes (knees and hands) Hx Kidney Stones: Yes Hx Dementia: Yes Additional medical history: ulcerative colitis, - Surgical History Hx Cholecystectomy: Yes - Social History Smoking Status: Never Smoker Substance Use Type: Alcohol - Medications Home Medications: Home Medications Medication Instructions Recorded Confirmed Last Taken Type Metformin HCl [Glucophage] 1,000 mg PO BIDWM #60 tablet 12/02/18 08/21/19 Unknown Rx Fenofibrate 160 mg PO DAILY 08/21/19 08/21/19 Unknown History Insulin NPH Hum/Reg Insulin Hm 25 unit SQ QHS 08/21/19 08/21/19 Unknown History [HumuLIN 70/30 Kwikpen] Insulin NPH Hum/Reg Insulin Hm 55 unit SQ QAM 08/21/19 08/21/19 Unknown History [HumuLIN 70/30 Kwikpen] Omeprazole 20 mg PO DAILY 08/21/19 08/21/19 Unknown History Docusate Sodium [Colace CAP] 100 mg PO BID #60 capsule 08/23/19 Unknown Rx Insulin Regular, Human [HumuLIN R] See Protocol SUB-Q ACHS #10 units 08/23/19 Unknown Rx levoFLOXacin [Levaquin TAB] 500 mg PO Q24HR #4 tablet 08/23/19 Unknown Rx Gabapentin 300 mg PO BID #20 cap 11/29/19 Unknown Rx Upper Extremity Exam - Exam General: Vital signs noted. No distress. Alert and acting appropriately. Head and Torso: No HEENT Abnormality, No Neck Tenderness, No Chest/Lungs Abnormality, No Abdominal Tenderness, No Back Tenderness Shoulder Exam: Yes Normal Range of Motion in Shoulder, No Shoulder Tenderness, No Clavicle Tenderness, No Shoulder Deformity, No AC Joint Tenderness Arm Exam: No Arm/Humerus Tenderness, No Arm Deformity Elbow: No Elbow Tenderness, No Normal Range of Motion in Elbow, No Elbow Deformity Forearm: No Forearm Tenderness, No Forearm Deformity, No Pain with Pronation, No Pain with Supination Wrist: Yes Normal ROM in Wrist, No Wrist Tenderness, No Wrist Deformity, No Snuffbox Tenderness, No Pain with Axial Thumb Compression Hand: Yes Normal ROM in Digit(s), No Hand Tenderness, No Hand Deformity, No Digit Tenderness, No Digit(s) Deformity, No Tendon Dysfunction CMS Exam: No Broken Skin, No Normal Distal Pulses, No Normal Capillary Refill, No Normal Distal Sensation ED Course Vital Signs 11/29/19 12:24 Temperature 97.8 F Pulse Rate 101 H Respiratory 18 Rate Blood Pressure 132/77 O2 Sat by Pulse 99 Oximetry ED Medical Decision Making - Radiology Data Radiology results: report reviewed, image reviewed LEFT UPPER EXTREMITY VENOUS DOPPLER ULTRASOUND HISTORY: Left arm pain for 3 days COMPARISON: None. TECHNIQUE: Grayscale, color and spectral Doppler imaging of the venous system of the left upper extremity was performed. FINDINGS: Internal Jugular Vein: Normal grayscale appearance and flow. Subclavian Vein: Normal grayscale appearance and flow. Axillary Vein: Normal venous flow, compressibility and augmentation. Brachial vein: Normal venous flow, compressibility and augmentation. Radial vein: Normal venous flow, compressibility and augmentation. Ulnar vein: Normal venous flow, compressibility and augmentation. Additional Findings: The cephalic and basilic veins are patent IMPRESSION: 1. No sonographic evidence of deep venous thrombosis in the left upper extremity. Signer Name: Bernardino Lewis Jr, MD Signed: 11/29/2019 1:40 PM Workstation Name: [id number] Transcribed By: TTR Dictated By: BERNARDINO LEWIS JR, MD Electronically Authenticated By: BERNARDINO LEWIS JR, MD Signed Date/Time: 11/29/19 1340 - Medical Decision Making 69-year-old male presents to ED with left upper arm pain most likely secondary to diabetic neuropathy. Ultrasound Doppler studies of the left arm are performed. See report above Patient had no deformity to the arm swelling or redness. Discussed with patient to make sure he is in compliance with his diabetes medication. Discussed follow-up with a neurologist. Referrals given. Patient had no neurological deficit, ambulatory without any problems exam is normal Discussed with patient to follow-up with his primary care physician as well in the next 3 to 5 days Critical care attestation.: If time is entered above; I have spent that time in minutes in the direct care of this critically ill patient, excluding procedure time. ED Disposition Clinical Impression: Diabetic neuropathic arthritis Disposition: - TO HOME OR SELFCARE Is pt being admited?: No Does the pt Need Aspirin: No Condition: Stable Instructions: Diabetes Mellitus Type 2 in Adults (ED), Diabetic Neuropathy (ED) Additional Instructions: Make sure to follow up with the primary care physician as discussed. Take all your medications as you've been prescribed. If you have any worsening symptoms or develop new symptoms please return to ED immediately. Prescriptions: Gabapentin 300 mg PO BID #20 cap Referrals: LILI SILVER MD [Primary Care Provider] - 3-5 Days [facility] [Provider Group] - 3-5 Days MAXIMINO CURRAN MD [Staff Physician] - 3-5 Days GIANNA BLANCO MD [Staff Physician] - 3-5 Days Forms: Accompanied Note, Work/School Release Form(ED) Time of Disposition: 17:15
[2019-11-29] MEDS ORDERED: ACETAMINOPHEN W/CODEINE 300-30 MG TAB PO ONE (17:03)
[2019-11-29] MEDS ORDERED: predniSONE 20 MG TAB PO ONE (17:03)
[2019-11-29 17:24] VITALS: BP 128/74
== END 2019-11-29 17:23 | disposition home or self-care (01) ==
LOC: ED 12:20
DX: E13.610 Other specified diabetes mellitus with diabetic neuropathic arthropathy (principal); I10 Essential (primary) hypertension; K21.9 Gastro-esophageal reflux disease without esophagitis; Z90.49 Acquired absence of other specified parts of digestive tract; Z79.4 Long term (current) use of insulin; Z79.899 Other long term (current) drug therapy
CPT/HCPCS: 93971; 99283; J7512

== ENCOUNTER 2020-02-28 10:38 | Outpatient (CLI) | payer MEDICARE ==
--- NOTE | 2020-02-28 14:06 | Magnetic Resonance Report ---
MRI BRAIN WITHOUT CONTRAST INDICATION / CLINICAL INFORMATION: LEFT ARM WEAKNESS AND PAIN. TECHNIQUE: Multisequence, multiplanar images were obtained. COMPARISON: CT head dated 11/28/2018 FINDINGS: CEREBRAL and CEREBELLAR HEMISPHERES: No evidence for diffusion restriction, hemorrhage, mass, mass ef fect or extra-axial fluid collection. Mild nonspecific chronic white matter changes are noted bilater ally. A chronic 1 cm focal infarct in the left cerebellar hemisphere is also noted. The remaining bra in parenchyma demonstrates normal signal on all sequences. VENTRICLES: Normal in size and configuration for age. VISUALIZED ORBITS: No significant abnormality. VISUALIZED PARANASAL SINUSES: No significant abnormality. ADDITIONAL FINDINGS: None. IMPRESSION: No acute intracranial abnormality. Mild nonspecific chronic white matter changes. Chronic 1 cm left cerebellar infarct. Signer Name: Bernardino Lewis Jr, MD Signed: 02/28/2020 2:02 PM Workstation Name: [id number]
--- NOTE | 2020-02-28 14:22 | Magnetic Resonance Report ---
MRI CERVICAL SPINE WITHOUT CONTRAST INDICATION / CLINICAL INFORMATION: LEFT ARM WEAKNESS AND PAIN. TECHNIQUE: Multisequence, multiplanar images of the cervical spine were obtained. COMPARISON: None available. FINDINGS: CRANIOCERVICAL JUNCTION:No significant abnormality. ALIGNMENT: No significant abnormality. VERTEBRAE:Normal marrow signal and vertebral body height for age. VISUALIZED SPINAL CORD: No significant abnormality. [id number] ANALYSIS: C2-3: No significant disc abnormality, spinal canal stenosis, or neural foraminal stenosis. C3-4: There is moderate bilateral uncovertebral spurring and mild facet arthropathy. Bilateral neural foraminal narrowing is estimated at 50%. C4-5: Mild bilateral uncovertebral spurring. A focal midline disc protrusion abuts the anterior spina l cord but no evidence for central canal narrowing. This protrusion measures approximately 6 mm trans verse and 3 mm AP. C5-6: Mild to moderate bilateral uncovertebral spurring and mild facet arthropathy. Mild to moderate bilateral neural foraminal narrowing is estimated at 50%. C6-7: Mild bilateral uncovertebral spurring and mild facet arthropathy. Mild left neural foraminal na rrowing is estimated at 25%. C7-T1: No significant disc abnormality, spinal canal stenosis, or neural foraminal stenosis. PARASPINAL SOFT TISSUES: No significant abnormality. ADDITIONAL FINDINGS: None. IMPRESSION: Mild to moderate cervical spondylosis as described. C3-4 and C5-6 appear to be the most affected leve ls. Focal midline disc protrusion at C4-5. Signer Name: Bernardino Lewis Jr, MD Signed: 02/28/2020 2:18 PM Workstation Name: [id number]
== END 2020-02-28 10:39 | disposition home or self-care (01) ==
LOC: MRI 10:38
PROVIDERS: ATTEND Psychiatry & Neurology Neurology
DX: M50.221 Other cervical disc displacement at C4-C5 level (principal); M48.02 Spinal stenosis, cervical region; M47.812 Spondylosis without myelopathy or radiculopathy, cervical region; G93.89 Other specified disorders of brain; R29.898 Other symptoms and signs involving the musculoskeletal system; M46.02 Spinal enthesopathy, cervical region
CPT/HCPCS: 70551; 72141

== ENCOUNTER 2020-08-25 08:40 | Day surgery (SDC) | payer MEDICARE ==
[2020-08-25] MEDS ORDERED: HYDROmorphone 2 MG/1 ML INJ IV PRN (11:00)
[2020-08-25] MEDS ORDERED: ONDANSETRON 4 MG/2 ML INJ IV PRN (11:00)
[2020-08-25] MEDS ORDERED: SODIUM CHLORIDE 0.9% 500 ML 500 ML IV SCH (11:00)
[2020-08-25 11:06] LABS: Hemoglobin 9.2 gm/dl (11.8-15.2); Mean Corpuscular HGB Conc 31 % (32-34); Mean Corpuscular Volume 90 fl (84-94); Red Blood Count 3.33 M/mm3 (3.65-5.03); Red Cell Distribution Width 18.4 % (13.2-15.2)
[2020-08-25 11:09] LABS: Platelet Count 37 K/mm3 (140-440)
[2020-08-25 11:14] LABS: INR 1.09 (0.87-1.13)
[2020-08-25 11:15] LABS: Partial Thromboplastin Time 28.6 Sec. (24.2-36.6)
[2020-08-25] MEDS ORDERED: HYDROmorphone 1 MG/1 ML INJ ONE (11:35)
[2020-08-25 11:48] LABS: Basophils % (Manual) 0 % (0.0-1.8); Eosinophils % (Manual) 0 % (0.0-4.3); Monocytes % (Manual) 0 % (0.0-7.3); Total Cells Counted 100
[2020-08-25 11:49] LABS: Macrocytosis Few
[2020-08-25 11:53] LABS: Anisocytosis 1+; Spherocytes Few
[2020-08-25 11:54] LABS: Tear Drop Cells Few
[2020-08-25 11:55] LABS: Platelet Estimate Consistent w Auto
[2020-08-25 14:21] VITALS: BP 119/90
--- NOTE | 2020-08-25 15:35 | Cat Scan Report ---
CT-GUIDED BONE MARROW ASPIRATION AND BIOPSY INDICATION : Anemia, thrombocytopenia PROCEDURE: The risks (including but not limited to bleeding and infection) and benefits were explain ed to the patient and informed consent was obtained. All CT examinations performed at this facility utilize dose modulation, iterative reconstruction or weight-based dosing, when appropriate, to reduce radiation dose to as low as reasonably achievable. A time out procedure was performed. The procedu re site was prepped and draped in the usual sterile fashion and lidocaine was used for local anesthes ia. IV Dilaudid was utilized for anxiolysis. Under CT guidance, the right posterior iliac wing was selected for biopsy. An 11 gauge needle was ad vanced to the posterior margin of the iliac wing, cortex breached, and 4.5 mL bone marrow aspirate ob tained. The needle was then advanced and a bone marrow biopsy was obtained measuring approximately 2 cm. Samples were given directly to the desktop technician who was present during the exam. The patient tolerated the procedure well with no complications. IMPRESSION: Technically successful bone marrow aspirate and biopsy. Signer Name: Bernardino Lewis Jr, MD Signed: 08/25/2020 3:30 PM Workstation Name: [id number]
[2020-08-25 15:48] LABS: Ovalocytes Rare
== END 2020-08-25 14:44 | disposition home or self-care (01) ==
LOC: CT 08:40 → CATHLABREC 08:40
PROVIDERS: ATTEND Internal Medicine Hematology & Oncology
DX: D64.9 Anemia, unspecified (principal); D69.6 Thrombocytopenia, unspecified; E78.5 Hyperlipidemia, unspecified; K21.9 Gastro-esophageal reflux disease without esophagitis; G93.40 Encephalopathy, unspecified; I12.9 Hypertensive chronic kidney disease with stage 1 through stage 4 chronic kidney disease, or unspecified chronic kidney disease; E11.22 Type 2 diabetes mellitus with diabetic chronic kidney disease; N18.9 Chronic kidney disease, unspecified; I25.10 Atherosclerotic heart disease of native coronary artery without angina pectoris; M19.90 Unspecified osteoarthritis, unspecified site; F41.9 Anxiety disorder, unspecified; Z91.81 History of falling; Z79.899 Other long term (current) drug therapy; Z79.4 Long term (current) use of insulin; Z87.440 Personal history of urinary (tract) infections; Z90.49 Acquired absence of other specified parts of digestive tract; Z87.442 Personal history of urinary calculi; Z98.890 Other specified postprocedural states; Z82.49 Family history of ischemic heart disease and other diseases of the circulatory system
CPT/HCPCS: 36415; 38222; 77012; 85025; 85097; 85610; 85730; 88184; 88185; 88230; 88291; 88305; J1170; J2405; J7040; 20225; 85007; 88161; 88311; 88313